=== PATIENT | male | born 1960 | race Caucasian/White ===

== ENCOUNTER 2019-11-06 21:55 | Inpatient (IN) | payer OTHER, SELFPAY ==
--- NOTE | ~2019-11-06 | XR_ITS ---
XR chest 1V portable 11/06/2019 22:43 Indication: History of lung cancer. Smoker. Procedure: AP portable chest Comparison: 02/24/2018 Findings: Heart size normal. No focal air space disease, pulmonary edema, pleural effusion or suspect ed pneumothorax. Minimal left basilar atelectasis. Impression: 1: No acute cardiopulmonary disease. Reviewed, dictated and finalized at location A. Impression: 1: No acute cardiopulmonary disease.
--- NOTE | 2019-11-06 22:02 | ECG_ITS ---
Measurements Intervals [place] Rate: 127 P: 33 WI: 151 QRS: -20 QRSD: 94 T: 53 QT: 293 QTc: 426 Interpretive Statements SINUS TACHYCARDIA INCOMPLETE RIGHT BUNDLE BRANCH BLOCK DELAYED PRECORDIAL R/S TRANSITION BASELINE WANDER- V1-V6 ABNORMAL ECG Electronically Signed On 11-07-2019 6:52:55 CDT by Catalino Olivier D.O.
[2019-11-06 22:07] VITALS: BP 122/77; PULSE 124; RESP 21; O2SAT 95
--- NOTE | 2019-11-06 22:22 | ECG_ITS ---
Measurements Intervals [place] Rate: 120 P: 27 VT: 139 QRS: 0 QRSD: 105 T: 60 QT: 311 QTc: 439 Interpretive Statements SINUS TACHYCARDIA ATRIAL PREMATURE COMPLEXES INCOMPLETE RIGHT BUNDLE BRANCH BLOCK BASELINE WANDER- V1-V2, V4-V6 ABNORMAL ECG Electronically Signed On 11-07-2019 6:59:02 CDT by Catalino Olivier D.O.
[2019-11-06] MEDS: SODIUM CHLORIDE 0.9% IV 1,000 ML 999 ML IV CONT ×2 (22:37→23:17)
[2019-11-06 22:39] LABS: Hematocrit 43.5 % (42.0-52.0); Hemoglobin 14.9 g/dL (14.0-18.0); Mean Corpuscular HGB Conc 34.3 g/dl (32-36); Mean Corpuscular Hemoglobin 30.7 pg (26-34); Mean Corpuscular Volume 89.7 fl (80-100); Mean Platelet Volume 10.4 fl (7.4-10.4); Platelet Count Result 260 k/mm3 (150-375); Red Blood Count 4.85 M/mm3 (4.6-6.20); Red Cell Distribution Width 13.7 % (11.5-14.5); White Blood Count 15.4 K/mm3 (4.5-10.0)
[2019-11-06 22:52] LABS: Band Neutrophils Percent 13 % (0-6); Blood Urea Nitrogen 14 mg/dL (9-20); Calcium 9.3 mg/dL (8.4-10.2); Carbon Dioxide 19 mmol/L (22-30); Chloride 106 mmol/L (98-107); Creatine Kinase 947 U/L (55-170); Estimated CRCL calculation 72 ml/min; Estimated Glomerular Filt Rate 57; Glucose 96 mg/dL (75-110); Lymphocytes Absolute Manual 1.23 K/mm3 (1.1-4.5); Monocytes Percent Manual 2 % (3-9); Neutrophils Absolute Manual 13.86 K/mm3 (1.3-6.7); Neutrophils Percent Manual 77 % (46-73); Nucleated Red Blood Cells 1 %; Platelet Estimate Adequate (Adequate); Potassium 3.9 mmol/L (3.4-5.0); Sodium 136 mmol/L (137-145); Total Cells Counted 100
[2019-11-06 23:02] LABS: Troponin I < 0.012 ng/mL (0.000-0.034)
[2019-11-06 23:03] VITALS: BP 95/78; PULSE 112; RESP 21
[2019-11-06 23:18] VITALS: BP 91/75; PULSE 107; RESP 25; TEMP 39.3; O2SAT 95
[2019-11-07] VITALS (12 sets, daily range): BP systolic 100–131; BP diastolic 58–77; PULSE 58–83; RESP 16–20; TEMP 36.4–37.4; O2SAT 93–98; BMI 31.6
[2019-11-07 01:47] LABS: Add Urine Microscopic? NO; Appearance Urine Clear (Clear); Bilirubin Urine Negative (Negative); Blood Urine Negative (Negative); Color Urine Yellow (Yellow); Glucose Urine UA Negative (Negative); Ketones Urine Negative (Negative); Leukocyte Esterase Ur Negative LEU/UL (Negative); Nitrate Urine Negative (Negative); Protein Urine Negative (Negative); Specific Grav Ur 1.012 (1.001-1.035); Urobilinogen Urine Negative mg/dL (<2.0)
[2019-11-07 02:00] LABS: Creatine Kinase 1001 U/L (55-170)
[2019-11-07 02:01] LABS: Lactic Acid Reflex 2.2 mmol/L (0.7-2.1)
[2019-11-07 02:12] LABS: Troponin I 0.025 ng/mL (0.000-0.034)
--- NOTE | 2019-11-07 02:14 | ECG_ITS ---
Measurements Intervals [place] Rate: 83 P: 26 OR: 140 QRS: 4 QRSD: 114 T: 30 QT: 374 QTc: 440 Interpretive Statements SINUS RHYTHM INCOMPLETE RIGHT BUNDLE BRANCH BLOCK BASELINE ARTIFACT- III BORDERLINE ECG Electronically Signed On 11-07-2019 15:14:32 CDT by Catalino Olivier D.O.
--- NOTE | 2019-11-07 02:42 | ED.GENADULT ---
HPI - General Adult General Chief complaint: Unspecified Stated complaint: not feeling well Time Seen by Provider: 11/06/19 22:17 History of Present Illness HPI narrative: Patient is a 59-year-old male who presents the ER with fever and shakiness. 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 He works for about [address] On his way home he began feeling very shaky. When he got home he had a borderline temperature and then developed a fever of 104.3 ?F. He continued to be very shaky and checked his blood sugar which is in the 140s. Due to symptoms he have to come the ER for further evaluation. He reports chronic dyspnea related to a partial pneumonectomy related to cancer but his shortness of breath is not increased recently. He has no runny nose/sore throat/productive cough. He has no chest pain or chest pressure. He does not feel like his heart is racing. No dizziness. No known sick contacts. There is only one COVID positive person in his work and that was over 4 weeks ago. Related Data Home Medications Medication Instructions Recorded Confirmed atorvastatin 11/06/19 omeprazole 11/06/19 Allergies Allergy/AdvReac Type Severity Reaction Status Date / Time shrimp Allergy Swelling Verified 11/06/19 22:11 Review of Systems Review of Systems: All systems reviewed & are unremarkable except as noted in HPI and below Constitutional: Constitutional: Denies chills, Reports fatigue and Reports fever(s) ENT: Denies nasal congestion and Denies sore throat Cardiovascular: Cardiovascular: Denies chest pain, Denies rapid heart rate and Denies radiating jaw, neck or arm pain Respiratory: Respiratory: Denies cough, Denies dyspnea and Denies wheezing Gastrointestinal: Gastrointestinal: Denies abdominal pain, Denies nausea and Denies vomiting Musculoskeletal: Musculoskeletal: Denies back pain and Denies muscle cramps PMFSH Past Medical History Medical History (Updated 11/07/19 @ 03:06 by Conner Hyatt MD) Hyperlipidemia Lung cancer Surgical History Surgical History (Updated 11/07/19 @ 02:51 by Conner Hyatt MD) History of lobectomy of lung Family History Family History (Updated 02/17/18 @ 09:24 by DOCTOR UNKNOWN) Sibling Acute myocardial infarction, Onset Age: 60 Family history of respiratory disorder Mother Family history of emphysema Social History Social History Smoking status: Heavy tobacco smoker Exam Narrative: Exam Narrative: GENERAL: Ill-appearing, diaphoretic, well-nourished, and in mild distress. HEAD: Normocephalic, atraumatic. ENT: Mucous membranes moist. CHEST: Clear to auscultation. No respiratory distress. HEART: Tachycardic and regular. Normal peripheral pulses. ABDOMEN: Soft, nontender, nondistended. EXTREMITIES: Normal range of motion. No edema. SKIN: Warm, diaphoretic, no rash. NEURO: Alert and oriented x3. Course Course Emergency Course: Patient informed of results. No longer febrile and no longer tachycardic. Still with intermittent hypotension despite 2 L IV fluid and no improvement in CK level. Patient's had no chest pain but troponin did have a significant upward trend. Will admit to the hospitalist service, continue hydrate, and start antibiotics given sepsis criteria being met Vital Signs Vital signs: Vital Signs Pulse Rate 124 H 11/06/19 22:07 Respiratory Rate 21 H 11/06/19 22:07 Blood Pressure 122/77 11/06/19 22:07 Pulse Oximetry 95 11/06/19 22:07 Temperature 99.2 F 11/07/19 02:28 Pulse Rate 79 11/07/19 02:28 Respiratory Rate 17 11/07/19 02:28 Blood Pressure 107/77 11/07/19 02:28 Pulse Oximetry 93 11/07/19 02:28 Medical Decision Making Vital Signs Vital Signs: Vital Signs Pulse Rate 124 H 11/06/19 22:07 Respiratory Rate 21 H 11/06/19 22:07 Blood Pressure 122/77 11/06/19 22:07 Pulse Oximetry 95 11/06/19 22:07
--- NOTE | 2019-11-07 03:20 | PM.IMHP ---
H&P: HPI History of Present Illness Chief complaint: sepsis, rhabdomyolysis Narrative: This is a 59 year old male with known history of right lung cancer who presented to the [facility] with a complaint of fever and chills that started this evening. 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 He described performing heavy physical work at home. On his way home he began to feel very shaky. The patient noted that he had a fever when he got home. Associated symptoms included nausea and headache. The patient denies any neck stiffness, sore throat, cough, chest pain, shortness of breath, abdominal pain, nausea, vomiting, diarrhea, rectal bleeding, LE swelling, rashes, wounds, or focal neurological symptoms. On arrival to the ER the patient was found to be severely septic and in sinus tachycardia. He was administered 2 liters of normal saline. He denies any sick contacts. The patient has no previous history of bacteremia or significant bacterial infections. He continues to smoke cigarettes. He has no known contacts with COVID-19 patients. Review of Systems Review of Systems: All systems reviewed & are unremarkable except as noted in HPI and below PMFSH Past Medical History Medical History (Updated 11/07/19 @ 04:00 by Russell Colbert MD) GERD (gastroesophageal reflux disease) Hyperlipidemia Lung cancer Surgical History Surgical History (Updated 11/07/19 @ 03:50 by Russell Colbert MD) History of back surgery History of lobectomy of lung Hx of hernia repair Family History Family History Sibling Acute myocardial infarction, Onset Age: 60 Family history of respiratory disorder Mother Family history of emphysema Social History Social History Smoking packs per day: 0.5 Smoking cigarettes per day: 10.0 Years smoked: 30 Smoking pack-years: 15.00 Smoking status: Current every day smoker Tobacco type: cigarettes Second hand tobacco smoke exposure: Yes Alcohol intake: never Substance use: never Substance use type: does not use Spiritual care concerns: No Meds Home Medications and Allergies Home Medications Medication Instructions Recorded Confirmed Type atorvastatin 11/06/19 History omeprazole 11/06/19 History Allergies Allergy/AdvReac Type Severity Reaction Status Date / Time shrimp Allergy Swelling Verified 11/06/19 22:11 Vital Signs Vital Signs - 24 hr 11/06/19 22:07 11/06/19 23:03 11/06/19 23:18 Temperature 39.3 C H Pulse Rate 124 H 112 H 107 H Respiratory Rate 21 H 21 H 25 H Blood Pressure 122/77 95/78 L 91/75 L Pulse Oximetry 95 95 11/07/19 00:51 11/07/19 02:28 Temperature 37.3 C 37.3 C Pulse Rate 83 79 Respiratory Rate 20 17 Blood Pressure 106/61 107/77 Pulse Oximetry 94 93 Exam Const: General: cooperative, alert, awake, diaphoretic and ill appearing acutely Nutritional Appearance: well nourished Orientation/consciousness: patient oriented x3 HENMT: Head: normal to inspection General nose exam: Normal external nose present Face and sinus: normal facial exam Mouth: Yes Normal oral and palatal mucosa present and Yes oropharynx normal Eyes: Pupils: Equal, round and reactive pupils present EOM: EOMs intact bilaterally Neck: Neck: supple and no JVD Thyroid: thyroid normal Lymphatic: lymphadenopathy not noted Resp: Effort & Inspection: normal respiratory effort Auscultation: clear to auscultation bilaterally Cardio: Rate: regular rate Rhythm: regular rhythm Heart sounds: no murmurs GI: Inspection: normal to inspection Auscultation: normal bowel sounds Skin: General skin exam: normal color and no rashes or lesions noted Neuro: General: patient oriented x3 Cranial nerves: Yes CN's II-XII intact bilaterally and Yes Equal, round and reactive pupils present Speech: normal speech Motor ex
--- NOTE | 2019-11-07 03:44 | ADMGEN ---
This patient, Edmar Kennedy, was admitted to IMU Room 201-01. Patient/family oriented to hospital policies and general routines including ID bracelet, bed and alarms, visiting hours, pain management, procedures, bathroom and other care routines, personal items, smoking policy, room service/diet, and visiting hours. Valuables list has been completed. Information on how to activate the Rapid Response Team has been discussed. Patient/Family are encouraged to report perceived risks to care and to ask questions if they do not understand what they are told or what they should do.
[2019-11-07] MEDS: SODIUM CHLORIDE 0.9% IV 1,000 ML 125 ML IV CONT ×3 (04:07→20:59)
[2019-11-07 04:42] LABS: Reflex Lactic Acid Yes or No Add Lactic
[2019-11-07 09:02] LABS: Hematocrit 39.5 % (42.0-52.0); Hemoglobin 13.1 g/dL (14.0-18.0); Mean Corpuscular HGB Conc 33.2 g/dl (32-36); Mean Corpuscular Hemoglobin 30.8 pg (26-34); Mean Corpuscular Volume 92.9 fl (80-100); Mean Platelet Volume 9.9 fl (7.4-10.4); Platelet Count Result 197 k/mm3 (150-375); Red Blood Count 4.25 M/mm3 (4.6-6.20); White Blood Count 16.6 K/mm3 (4.5-10.0)
[2019-11-07 09:15] LABS: Creatine Kinase 1210 U/L (55-170)
[2019-11-07 09:16] LABS: Alanine Aminotransferase 30 U/L (4-50); Albumin Level 3.8 g/dL (3.5-5.1); Alkaline Phosphatase 72 U/L (38-126); Aspartate Amino Transferase 43 U/L (17-59); Bilirubin,Total 0.6 mg/dL (0.2-1.3); Blood Urea Nitrogen 14 mg/dL (9-20); CRP 6.1 mg/dL (<1.0); Calcium 8.4 mg/dL (8.4-10.2); Carbon Dioxide 22 mmol/L (22-30); Chloride 108 mmol/L (98-107); Estimated CRCL calculation 83 ml/min; Estimated Glomerular Filt Rate > 60; Glucose 105 mg/dL (75-110); Lactate Dehydrogenase 519 U/L (313-618); Potassium 4.2 mmol/L (3.4-5.0); Sodium 138 mmol/L (137-145)
[2019-11-07] MEDS: ATORVASTATIN 10 MG TABLET PO (09:26)
[2019-11-07] MEDS: PANTOPRAZOLE SOD SESQUIHYDRATE 20 MG TAB PO (09:27)
--- NOTE | 2019-11-07 12:20 | PM.IMPN ---
Progress Note: A&P Assessment and Plan (1) SIRS (systemic inflammatory response syndrome): Code(s): R65.10 - Systemic inflammatory response syndrome (SIRS) of non-infectious origin without acute organ dysfunction Status: Acute Assessment and Plan: -----patient had temperature of 102.8 with white blood cell count of 15.4 on admission without any signs of infection at this time. This is likely in response to his heat exhaustion. His UA and chest x-ray is normal. White blood cell count is trending down. No audible murmur. He has not had any more fevers or symptoms/signs of infection. Will await preliminary blood cultures. Likely d/c tomorrow. (2) Rhabdomyolysis: Qualifiers: Rhabdomyolysis type: non-traumatic Qualified Code(s): M62.82 - Rhabdomyolysis Code(s): M62.82 - Rhabdomyolysis Status: Acute Assessment and Plan: -----CK trending up, likely will plateau soon and will trend down. Hopefully he can go home tomorrow if this is under 1000. Continue IV fluids at this time. Creatinine within normal limits today. (3) Metabolic acidosis: Code(s): E87.2 - Acidosis Status: Acute Assessment and Plan: ------resolved. Secondary to dehydration. Continue IV hydration. (4) Leukocytosis: Qualifiers: Leukocytosis type: unspecified Qualified Code(s): D72.829 - Elevated white blood cell count, unspecified Code(s): D72.829 - Elevated white blood cell count, unspecified Status: Acute Assessment and Plan: -----as detailed above. Monitor CBCd. (5) Hyperlipidemia: Qualifiers: Hyperlipidemia type: unspecified Qualified Code(s): E78.5 - Hyperlipidemia, unspecified Code(s): E78.5 - Hyperlipidemia, unspecified Status: Chronic Assessment and Plan: ------Continue home Lipitor PO. (6) GERD (gastroesophageal reflux disease): Qualifiers: Esophagitis presence: esophagitis presence not specified Qualified Code(s): K21.9 - Gastro-esophageal reflux disease without esophagitis Code(s): K21.9 - Gastro-esophageal reflux disease without esophagitis Status: Chronic Assessment and Plan: -----Continue PPI therapy. (7) Tobacco dependence: Code(s): F17.200 - Nicotine dependence, unspecified, uncomplicated Status: Chronic Assessment and Plan: -----I have counseled the patient regarding tobacco cessation for >10 minutes. He does not desire a nicotine patch at this time. He has a history of lung cancer but is in remission since this June. Additional Plan Time Spent With Patient Time with patient: 25 - 35 minutes Subjective Date/time seen: 11/07/19 12:20 Interval history: Pt is a 59-year-old male here for rhabdomyolysis. Patient was seen today and states he is feeling much better and would like to go home. He is not having any muscle pain or signs of infection. He specifically denies chest pain, dysuria, abdominal pain, diarrhea, shortness of breath, cough, rashes or wounds. He denies any rigors or other signs of infection. Review of Systems Review of Systems: All systems reviewed & are unremarkable except as noted in HPI and below Exam Narrative: Exam Narrative: General: Well developed well nourished patient resting comfortably in bed in [facility] HEENT: normocephalic Neck: supple Neuro: Alert and oriented x4 CV:RRR Resp:CTA skin: Clean and dry without wounds or rashes Abd: Soft, non distended. No pain to palpation. Positive bowel sounds Extremities: No swelling, erythema, or pain to palpation. Objective Data Vital Signs Vital Signs: Vital Signs - 24 hr 11/06/19 22:07 11/06/19 23:03 11/06/19 23:18 Temperature 102.8 F H Pulse Rate 124 H 112 H 107 H Respiratory Rate 21 H 21 H 25 H Blood Pressure 122/77 95/78 L 91/75 L Pulse Oximetry 95 95 11/07/19 00:51 11/07/19 02:28 11/07/19 03:48 Temperature 99.1 F
--- NOTE | 2019-11-07 14:54 | PC.NURSE ---
This patient, Edmar Kennedy, was transferred to [facility] on 11/07/19 at 1445. Personal belongings sent with patient. Report given to Steve. Appropriate documentation sent with patient.
--- NOTE | 2019-11-07 15:01 | PC.NURSE ---
This patient, Edmar Kennedy, was received from IMU on 11/07/19 at 1501. Personal belongings list checked and signed. Patient/family oriented to unit policies and routines
[2019-11-08 03:28] VITALS: BP 109/79; PULSE 53; RESP 16; TEMP 36.3; O2SAT 96
[2019-11-08] MEDS: SODIUM CHLORIDE 0.9% IV 1,000 ML 125 ML IV CONT (04:39)
[2019-11-08 05:42] VITALS: BP 114/78; PULSE 54; RESP 16; TEMP 36.4; O2SAT 98
[2019-11-08 06:06] LABS: Basophils Percent Auto 0.4 % (0.2-1.2); Eosinophils Absolute Auto 0.1 K/mm3 (0-0.3); Hematocrit 35.8 % (42.0-52.0); Hemoglobin 11.8 g/dL (14.0-18.0); Immature Granulocyte Absolute 0.02 K/mm3 (0.00-0.031); Immature Granulocyte Percent A 0.4 % (0-0.5); Lymphocytes Absolute Auto 1.12 K/mm3 (0.9-3.2); Lymphocytes Percent Auto 20.4 % (18.3-44.2); Mean Corpuscular Hemoglobin 30.4 pg (26-34); Mean Corpuscular Volume 92.3 fl (80-100); Mean Platelet Volume 9.4 fl (7.4-10.4); Monocytes Absolute Auto 0.6 K/mm3 (0.1-0.6); Monocytes Percent Auto 10.8 % (2.6-8.5); Neutrophils Absolute Auto 3.6 K/mm3 (1.3-6.7); Platelet Count Result 148 k/mm3 (150-375); Red Blood Count 3.88 M/mm3 (4.6-6.20); Red Cell Distribution Width 13.9 % (11.5-14.5); White Blood Count 5.5 K/mm3 (4.5-10.0)
[2019-11-08 06:19] LABS: Alanine Aminotransferase 37 U/L (4-50); Albumin Level 3.2 g/dL (3.5-5.1); Alkaline Phosphatase 63 U/L (38-126); Aspartate Amino Transferase 49 U/L (17-59); Bilirubin,Total 0.3 mg/dL (0.2-1.3); Blood Urea Nitrogen 13 mg/dL (9-20); Calcium 8.3 mg/dL (8.4-10.2); Carbon Dioxide 24 mmol/L (22-30); Chloride 111 mmol/L (98-107); Creatine Kinase 806 U/L (55-170); Estimated CRCL calculation 94 ml/min; Estimated Glomerular Filt Rate > 60; Glucose 104 mg/dL (75-110); Potassium 4.3 mmol/L (3.4-5.0); Sodium 138 mmol/L (137-145)
[2019-11-08] MEDS: PANTOPRAZOLE SOD SESQUIHYDRATE 20 MG TAB PO (08:19)
--- NOTE | 2019-11-08 09:25 | PM.DS ---
DS: Admitting Diagnosis Admitting Diagnosis Admitting Diagnosis: Sepsis, unspecified organism DS: Discharge Diagnosis Discharge Diagnosis (1) SIRS (systemic inflammatory response syndrome): Code(s): R65.10 - Systemic inflammatory response syndrome (SIRS) of non-infectious origin without acute organ dysfunction Status: Acute Assessment and Plan: -----patient had temperature of 102.8 with white blood cell count of 15.4 on admission without any signs of infection at this time. This is likely in response to his heat exhaustion. His UA and chest x-ray is normal. White blood cell count is normal. ABX stopped 11/06. No audible murmur. He has not had any more fevers or symptoms/signs of infection. Blood cultures negative at discharge (spoke with murali) and will be monitored until finalized. (2) Rhabdomyolysis: Qualifiers: Rhabdomyolysis type: non-traumatic Qualified Code(s): M62.82 - Rhabdomyolysis Code(s): M62.82 - Rhabdomyolysis Status: Acute Assessment and Plan: -----CK improved, okay to discharge and he understands he needs to drink plenty of fluids. Creatinine within normal limits today. He is to hold his statin medication until tuesday. I do not think this is the cause of his rhabdo, but will check a ck in one week to ensure it is not causing it. I spoke with Che at Dr. Francis' office about this follow up. (3) Metabolic acidosis: Code(s): E87.2 - Acidosis Status: Acute Assessment and Plan: ------resolved. Secondary to dehydration. (4) Leukocytosis: Qualifiers: Leukocytosis type: unspecified Qualified Code(s): D72.829 - Elevated white blood cell count, unspecified Code(s): D72.829 - Elevated white blood cell count, unspecified Status: Acute Assessment and Plan: -----resolved. as detailed above. Monitor CBCd. (5) Hyperlipidemia: Qualifiers: Hyperlipidemia type: unspecified Qualified Code(s): E78.5 - Hyperlipidemia, unspecified Code(s): E78.5 - Hyperlipidemia, unspecified Status: Chronic Assessment and Plan: ------holding until tuesday as stated above. (6) GERD (gastroesophageal reflux disease): Qualifiers: Esophagitis presence: esophagitis presence not specified Qualified Code(s): K21.9 - Gastro-esophageal reflux disease without esophagitis Code(s): K21.9 - Gastro-esophageal reflux disease without esophagitis Status: Chronic Assessment and Plan: -----Continue PPI therapy. (7) Tobacco dependence: Code(s): F17.200 - Nicotine dependence, unspecified, uncomplicated Status: Chronic Assessment and Plan: -----I have counseled the patient regarding tobacco cessation for >10 minutes. He does not desire a nicotine patch at this time. He has a history of lung cancer but is in remission since this June. DS: Summary Hospital Course Reason for hospitalization: Fever, abnormal vitals, rhabdomyolysis Hospital Course: Patient is a 59-year-old male who presented emergency room for weakness, and shakiness. Patient states he had been working in the heat for 13 hours and started to feel bad. He started having muscle cramps and overall weakness. No signs or symptoms of infection such as sore throat, chest pain, shortness of breath, dysuria, or sick contacts. Vitals in the ER were temperature 102.8?, blood pressure 91/75, pulse 107, respiratory rate 25, O2 95. Chest x-ray was normal. UA normal. Patient has some tachycardia which is likely response to his heat exhaustion. There was some abnormalities in the EKG looks like incomplete right bundle branch block. Some ST abnormalities but likely due to delayed precordial transition. Troponins were negative x3. Patient had no chest pain. White blood cell count elevated 15,000. CK elevated Because of his significant symptoms he was admitted to the hospital to evaluate for
[2019-11-08 10:00] VITALS: BP 138/88; PULSE 88; RESP 18; TEMP 36.2; O2SAT 97
--- NOTE | 2019-11-14 11:06 | PC.NURSE ---
Blood cx is negative.
== END 2019-11-08 11:07 | disposition home or self-care (01) | DRG 923 ==
LOC: ANHED 11-07 02:46 → ANHIMU 11-07 03:06 → ANH2MED 11-07 15:46 → ANHIMU 11-09 15:14
PROVIDERS: Admitting Provider Family Medicine; Emergency Provider Emergency Medicine; PCP Family Medicine; Visit Provider Physician Assistant
DX: T67.01XA Heatstroke and sunstroke, initial encounter (principal); R65.10 Systemic inflammatory response syndrome (SIRS) of non-infectious origin without acute organ dysfunction; M62.82 Rhabdomyolysis; E87.2 Acidosis; D72.829 Elevated white blood cell count, unspecified; K21.9 Gastro-esophageal reflux disease without esophagitis; E78.5 Hyperlipidemia, unspecified; E86.0 Dehydration; F17.210 Nicotine dependence, cigarettes, uncomplicated; X30.XXXA Exposure to excessive natural heat, initial encounter; Y92.63 Factory as the place of occurrence of the external cause; Y99.0 Civilian activity done for income or pay
CPT/HCPCS: 36415; 71045; 80048; 80053; 80076; 81003; 82550; 82728; 83605; 83615; 84484; 85025; 85027; 86140; 87040; 93005; 96361; 96365; 96374; 99285; A9270; J0131; J0696; J3370; J7030

== ENCOUNTER 2020-02-19 18:21 | Emergency (ER) | payer OTHER, SELFPAY ==
--- NOTE | ~2020-02-19 | XR_ITS ---
EXAMINATION: XR knee RT min 4V EXAM DATE: 02/19/2020 19:27 INDICATION: rt knee pain after getting up from chair 4 day ago. TECHNIQUE: Right knee frontal, crosstable lateral, orthogonal oblique projections for interpretation . Comparison is made to prior examination from 01/26/2016. FINDINGS: There is a right femoral distal diaphyseal enchondroma or less likely bone infarct. 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 There is soft tissue swelling anterior to this. Patellar tendon is intact. No joint effusion. There is mild primary osteoa rthritis. There are no acute fractures identified. There is no significant interval change. IMPRESSION: 1. Tibial tuberosity unfused ossification along patellar tendon, consistent with old Vilma-Schlatte r's disease. Some overlying soft tissue swelling. 2. Distal femoral enchondroma or infarct. 3. Mild osteoarthritis. Reviewed, dictated and finalized at location A. IMPRESSION: 1. Tibial tuberosity unfused ossification along patellar tendon, consistent wi th old Vilma-Schlatter's disease. Some overlying soft tissue swelling. 2. Distal femoral enchondroma or infarct. 3. Mild osteoarthritis.
[2020-02-19 18:36] VITALS: BP 143/97; PULSE 79; RESP 16; TEMP 37; O2SAT 98
--- NOTE | 2020-02-19 19:14 | ED.GENADULT ---
HPI - General Adult General Chief complaint: Extremity Injury, Lower Stated complaint: right knee pain Time Seen by Provider: 02/19/20 19:04 Source: patient and RN notes reviewed Mode of arrival: ambulatory Limitations: no limitations History of Present Illness HPI narrative: 59-year-old male presents with complaints of right lateral knee pain for the past 4 days. Edmar says he got up from sitting position and twisted RT knee and pain has been increasing daily, worse today after increase walking at work. Advil 400-600mg last today at 11:00am with little to no relief. No radiation of pain. No numbness or tingling, or bleeding. No swelling. No loss of mobility. Exacerbating factor consist of bearing weight. Remains active. The patient reports he have not been diagnosed with COVID-19. The patient reports he is not waiting for the results of a COVID-19 lab test. The patient reports he do not have fever, chills, weakness, or fatigue. The patient reports he do not have a new or worsening cough or shortness of breath. Denies chest pain. The patient reports he do not have any rhinorrhea, congestion, loss of taste, sore throat, nausea, vomiting, abdominal pain, and diarrhea. Tolerating po intake well. Denies recent traveling. Denies concerns for COVID-19 or exposures been home with limited outdoor exposure except for essential household needs, work, and return home. At this time, patient is not suspected of having COVID-19. Some parts of this dictation were generated by voice recognition software and may contain typographical and/or grammatical inaccuracies. Related Data Home Medications Medication Instructions Recorded Confirmed omeprazole 20 mg PO DAILY 11/06/19 02/19/20 Allergies Allergy/AdvReac Type Severity Reaction Status Date / Time shrimp Allergy Intermediate Swelling Verified 02/19/20 18:45 Review of Systems Review of Systems: Narrative: CONSTITUTIONAL: Denies fever, chills, sweats. EYES: Denies visual changes, redness, discharge. ENT: Denies rhinorrhea, congestion, sore throat, otalgia. CARDIOVASCULAR: Denies chest pain, palpitations, edema. RESPIRATORY: Denies dyspnea, wheezing, cough. GASTROINTESTINAL: Denies abdominal pain, nausea, vomiting, diarrhea. SKIN: Denies rash or itching. MUSCULOSKELETAL: Denies acute back pain or myalgia. Complains of right lateral knee pain. NEUROLOGIC: Denies numbness, or focal weakness. PSYCHIATRIC: Denies anxiety or depression. All other systems reviewed & are unremarkable except as noted in HPI and below. [facility] Past Medical History Medical History (Updated 02/20/20 @ 00:00 by Yoshi Cueto) GERD (gastroesophageal reflux disease) Hyperlipidemia Lung cancer Rhabdomyolysis Surgical History Surgical History History of back surgery History of lobectomy of lung Hx of hernia repair Family History Family History (Updated 02/19/20 @ 19:23 by SHARI Eisenberg) Sibling Acute myocardial infarction, Onset Age: 60 Family history of respiratory disorder Mother Family history of emphysema Father Lung cancer Social History Social History (Updated 02/19/20 @ 19:18 by SHARI Eisenberg) Smoking packs per day: 1 Smoking cigarettes per day: 20.0 Years smoked: 35 Smoking pack-years: 35.00 Smoking status: Current every day smoker Tobacco type: cigarettes Second hand tobacco smoke exposure: Yes Alcohol intake: never Substance use: never Substance use type: does not use Living arrangements: alone Occupation/Education: occupation Gender identity (if verbalized by the patient): Male Spiritual care concerns: No Comments At time of signature, agree with nurse past medical, surgical, social, and family history. There is no relevant family history pertinent to the presenting complaint. Exam Narrative: Exam Narrative: GENERAL: This is a we
== END 2020-02-19 20:03 | disposition home or self-care (01) ==
PROVIDERS: Emergency Provider Nurse Practitioner Family; PCP Family Medicine
DX: M25.561 Pain in right knee (principal); F17.210 Nicotine dependence, cigarettes, uncomplicated; K21.9 Gastro-esophageal reflux disease without esophagitis; E78.5 Hyperlipidemia, unspecified; Z85.118 Personal history of other malignant neoplasm of bronchus and lung; Z90.2 Acquired absence of lung [part of]; M62.82 Rhabdomyolysis
CPT/HCPCS: 73564; 99213; G0463

== ENCOUNTER → 2020-09-08 15:25 | Outpatient (CLI) | payer OTHER, SELFPAY ==
--- NOTE | ~2020-09-08 | XR_ITS ---
EXAMINATION: XR knee RT 3V DATE: 09/08/2020 15:58 INDICATION: Right knee joint effusion. TECHNIQUE: 3 views of right knee were obtained. COMPARISON: Right knee radiographs 02/19/2020 FINDINGS: Bone alignment is normal. No fracture. Again seen is a sclerotic lesion in distal femoral m etadiaphysis. There is moderate osteoarthritis of medial compartment and mild osteoarthritis of later al and patellofemoral compartments. There is a small knee joint effusion. IMPRESSION: 1. Moderate right knee osteoarthritis. 2. Small knee joint effusion. 3. Stable sclerotic lesion in distal femoral metadiaphysis, which may be an enchondroma or osteonecro sis. Reviewed, dictated and finalized at location B. IMPRESSION: 1. Moderate right knee osteoarthritis. 2. Small knee joint effusion. 3. Stable sclerotic lesion in distal femoral metadiaphysis, which may be an enc hondroma or osteonecrosis.
--- NOTE | ~2020-09-08 | US_ITS ---
EXAMINATION: US joint non vasc ltd RT DATE: 09/08/2020 15:41 INDICATION: Right lower limb mass. TECHNIQUE: Multiple grayscale and Doppler ultrasound images of the right lower limb were obtained. COMPARISON: None FINDINGS: There is no abnormal mass in the patient's area of concern in the posterior aspect of the r ight lower limb. IMPRESSION: 1. No abnormal mass in the patient's area of concern in the posterior aspect of the right lower limb. Reviewed, dictated and finalized at location B.
== END ==
PROVIDERS: Visit Provider Nurse Practitioner
DX: M17.11 Unilateral primary osteoarthritis, right knee (principal); M25.461 Effusion, right knee
CPT/HCPCS: 73562; 76882

== ENCOUNTER 2021-05-12 08:52 | Outpatient (CLI) | payer OTHER, SELFPAY ==
--- NOTE | 2021-05-12 11:00 | NEURO_ITS ---
Impression: # Complains of numbness of right index finger and thumb. # Right Carpal Tunnel Syndrome. # Mild evolving left Carpal Tunnel Syndrome. # No ulnar neuropathy. Nerve Conduction Studies Anti Sensory Summary Table Stim Site NR Peak (ms) P-T Amp (?V) Site1 Site2 Delta-P (ms) Dist (cm) Lul (m/s) Left Median Anti Sensory (2-3nd Digit) Wrist 3.9 24.6 Wrist 2-3nd Digit 3.9 14.0 36 Wrist 4.2 16.7 Wrist 2-3nd Digit 3.9 14.0 36 Right Median Anti Sensory (2-3nd Digit) Wrist 4.7 16.3 Wrist 2-3nd Digit 4.7 14.0 30 Wrist 4.6 6.5 Wrist 2-3nd Digit 4.7 14.0 30 Left Radial Anti Sensory (Base 1st Digit) Wrist 2.3 14.2 Wrist Base 1st Digit 2.3 0.0 Right Radial Anti Sensory (Base 1st Digit) Wrist 2.2 19.1 Wrist Base 1st Digit 2.2 0.0 Left Ulnar Anti Sensory (5th Digit) Wrist 2.9 18.9 Wrist 5th Digit 2.9 14.0 48 Right Ulnar Anti Sensory (5th Digit) Wrist 2.8 15.8 Wrist 5th Digit 2.8 14.0 50 Motor Summary Table Stim Site NR Onset (ms) O-P Amp (mV) Site1 Site2 Delta-0 (ms) Dist (cm) Lul (m/s) Left Median Motor (Abd Poll Brev) Wrist 3.8 5.5 Elbow Wrist 5.9 33.0 56 Elbow 9.7 4.2 Right Median Motor (Abd Poll Brev) Wrist 4.4 7.2 Elbow Wrist 6.1 32.0 52 Elbow 10.5 6.6 Left Ulnar Motor (Abd Dig Minimi) Wrist 2.8 5.2 A Elbow Wrist 5.5 32.0 58 A Elbow 8.3 3.6 Right Ulnar Motor (Abd Dig Minimi) Wrist 2.8 7.1 A Elbow Wrist 5.6 33.0 59 A Elbow 8.4 6.2 F Wave Studies NR F-Lat (ms) L-R F-Lat (ms) Left Median (Mrkrs) (Abd Poll Brev) 32.66 1.13 Right Median (Mrkrs) (Abd Poll Brev) 33.79 1.13 Left Ulnar (Mrkrs) (Abd Dig Min) 31.28 0.46 Right Ulnar (Mrkrs) (Abd Dig Min) 31.73 0.46 EMG Side Muscle Nerve Root Ins Act Fibs Amp Dur Recrt Comment Right 1stDorInt Ulnar C8-T1 Nml Nml Nml Nml Nml Right Ext Indicis Radial (Post Int) C7-8 Nml Nml Nml Nml Nml Right Ext Digitorum Radial (Post Int) C7-8 Nml Nml Nml Nml Nml Right BrachioRad Radial C5-6 Nml Nml Nml Nml Nml Right PronatorTeres Median C6-7 Nml Nml Nml Nml Nml Right Abd Poll Brev Median C8-T1 Nml Nml Nml Nml Reduced Left 1stDorInt Ulnar C8-T1 Nml Nml Nml Nml Nml Left Ext Indicis Radial (Post Int) C7-8 Nml Nml Nml Nml Nml Left Ext Digitorum Radial (Post Int) C7-8 Nml Nml Nml Nml Nml Left BrachioRad Radial C5-6 Nml Nml Nml Nml Nml Left PronatorTeres Median C6-7 Nml Nml Nml Nml Nml Left Abd Poll Brev Median C8-T1 Nml Nml Nml Nml Nml Right ABD Dig Min Ulnar C8-T1 Nml Nml Nml Nml Nml Left ABD Dig Min Ulnar C8-T1 Nml Nml Nml Nml Nml MTDD
== END 2021-05-12 08:53 | disposition home or self-care (01) ==
LOC: ANHNEURO 08:54
PROVIDERS: PCP Internal Medicine; Visit Provider Internal Medicine
DX: R20.2 Paresthesia of skin (principal); G56.01 Carpal tunnel syndrome, right upper limb
CPT/HCPCS: 95886; 95911

== ENCOUNTER → 2021-07-24 09:06 | Outpatient (CLI) | payer OTHER, SELFPAY ==
--- NOTE | ~2021-07-24 | MR_ITS ---
EXAMINATION: MR knee RT wo con DATE: 07/24/2021 09:52 INDICATION: Right knee pain TECHNIQUE: Magnetic resonance imaging (MRI) of the right knee was performed without intravenous contr ast. Sequences included coronal PD-weighted FSE, coronal PD-weighted FS FSE, sagittal T2-weighted FS E, sagittal PD-weighted FS FSE and axial PD weighted fat saturated FSE. COMPARISON: None. FINDINGS: Medial compartment: Complex tear of the posterior body and posterior horn of the medial meniscus. The posterior horn is d iminutive with loss of the majority the meniscal tissue. Deep chondral ulceration along the anterior to central weightbearing medial femoral condyle and significant portions of the medial tibial plateau in places likely for near full-thickness. Few tiny foci of subarticular edema-like marrow signal sugey nge along the anterior weightbearing medial femoral condyle. Lateral compartment: Tear of indeterminate morphology along the inner third of the body of the medial meniscus shallow cho ndral ulceration and deeper fissuring along the anterior to central weightbearing lateral femoral con dyle and lateral tibial plateau. There are few tiny central subchondral osteophytes along the central to posterior tibial plateau and anterior weightbearing medial femoral condyle. Patellofemoral compartment: Extensive partial thickness chondral ulceration with superimposed deep fissuring along the medial pat ellar facet and apical ridge. Less severe partial thickness cartilage loss with minimal chondral surf magdy regularity along the lateral patellar facet. Deep chondral ulceration with few small central subc hondral osteophytes along the medial trochlea and trochlear groove. Similarly there is less severe pa rtial thickness cartilage loss with scattered chondral surface irregularity along the lateral trochle a. Ligaments and tendons: Posterior cruciate ligament is normal. The anterior cruciate ligament demonstrates a normal angle rel ative to [place] line. It appears thickened with a few small intrasubstance ganglion cysts and inc reased intrasubstance signal surrounding intact appearing linear fibers with a celery stalk appeara nce. The medial collateral ligament and fibular collateral ligament complex are normal. Prominent ent hesophyte and large these pelvic ossicle at the anterior tibial tubercle insertion of the otherwise n ormal patellar tendon likely sequela of childhood [place]-Schlatter's disease. Small despite at the pa tellar insertion of the normal distal quadriceps tendon. Moderate tendinopathy without discrete tear at the direct head of the of the semimembranosus tendon. There is a pedunculated osseous excrescences with cortical and medullary community at the posterior medial margin of the medial tibial plateau ne ar the footplate of the semimembranosus tendon which could represent either chronic enthesopathy or s equela of chronic trauma although differential includes a pedunculated osteochondroma. The visualized medial and lateral hamstring tendons as well as the iliotibial band are otherwise normal. Fluid: Small right knee joint effusion. 7 mm round loose body in the lateral gutter of the suprapatellar clemente ch. Small Arora's cyst. Osseous/other: Likely mild reactive edema at the proximal tibia underlying the footplate of the anterior cruciate li gament. Bone marrow signal is otherwise normal with no fracture or pathologic marrow replacing proces s. IMPRESSION: 1. Complex medial meniscal tear with significant loss of meniscal tissue at the posterior horn. 2. Moderate medial compartment predominant tricompartmental osteoarthritis with regions of moderate a nd high-grade chondral malacia in all 3 compartments. 3. Mucoid degeneration without definitive tear of the anterior cruciate ligament. Correlate with phys ical exam to assess for degree of residual functional integrity. 4. Moderate te
== END ==
PROVIDERS: PCP Internal Medicine; Visit Provider Nurse Practitioner Family
DX: M25.561 Pain in right knee (principal); G89.29 Other chronic pain; M23.321 Other meniscus derangements, posterior horn of medial meniscus, right knee; M71.21 Synovial cyst of popliteal space [Baker], right knee; M25.461 Effusion, right knee; M23.41 Loose body in knee, right knee
CPT/HCPCS: 73721

== ENCOUNTER 2023-03-30 15:23 | Outpatient (CLI) | payer OTHER, SELFPAY ==
[2023-03-30 16:14] LABS: Hematocrit 40.7 % (42.0-52.0); Hemoglobin 13.7 g/dL (14.0-18.0); Mean Corpuscular HGB Conc 33.7 g/dl (32-36); Mean Corpuscular Volume 89.1 fl (80-100); Platelet Count Result 317 k/mm3 (150-375); Red Blood Count 4.57 M/mm3 (4.6-6.20); Red Cell Distribution Width 13.7 % (11.5-14.5); White Blood Count 8.8 K/mm3 (4.5-10.0)
[2023-03-30 16:33] LABS: Alanine Aminotransferase 46 U/L (6-50); Albumin Level 4.4 g/dL (3.5-5.1); Alkaline Phosphatase 104 U/L (38-126); Anion Gap 11 mmol/L (8-16); Aspartate Amino Transferase 47 U/L (17-59); Bilirubin,Total 0.9 mg/dL (0.2-1.3); Blood Urea Nitrogen 15 mg/dL (9-20); Carbon Dioxide 23 mmol/L (22-30); Chloride 100 mmol/L (98-107); Estimated Glomerular Filt Rate > 60; Glucose 94 mg/dL (65-110); Potassium 4.5 mmol/L (3.4-5.0); Sodium 134 mmol/L (137-145)
[2023-03-30 20:26] LABS: Hemoglobin A1C 5.2 % (<5.7)
[2023-04-04 15:19] LABS: Testosterone Free 29.7; Testosterone Total 341
== END 2023-03-30 15:24 | disposition home or self-care (01) ==
LOC: ANHLAB 15:24
PROVIDERS: PCP Family Medicine; Visit Provider Family Medicine
DX: E29.1 Testicular hypofunction (principal); G47.33 Obstructive sleep apnea (adult) (pediatric); J44.9 Chronic obstructive pulmonary disease, unspecified; K21.9 Gastro-esophageal reflux disease without esophagitis; R53.83 Other fatigue; R73.03 Prediabetes; Z00.00 Encounter for general adult medical examination without abnormal findings
CPT/HCPCS: 36415; 80053; 83036; 84402; 84403; 85027

== ENCOUNTER → 2023-04-06 15:48 | Outpatient (CLI) | payer OTHER, SELFPAY ==
--- NOTE | ~2023-04-06 | XR_ITS ---
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 RESULT: Lines, tubes, and devices: Suture line in the right upper medial hemithorax from prior lobectomy. Lungs and pleura: Small focus of subsegmental airspace disease in the left medial upper lung. Cardiomediastinal silhouette: Interval widening of mediastinum, likely dilation of the aortic root, and new enlargement/indistinctness of the aortic knob. Other: No acute osseous or upper abdominal finding. IMPRESSION: Mediastinal findings concerning for thoracic aortic aneurysm or dissection. Small focus of atelectasi s or consolidation in the medial left upper lung. Recommend CT angiogram of the chest with contrast f or further evaluation. Results reported telephonically to Dr. Fam Baez by Dr. Daugherty at 5:16 PM on 04/06/2023. Reviewed, dictated and finalized at location K. UITO SPRAYER IMPRESSION: Mediastinal findings concerning for thoracic aortic aneurysm or dissection. Sma ll focus of atelectasis or consolidation in the medial left upper lung. Recomme nd CT angiogram of the chest with contrast for further evaluation. Results reported telephonically to Dr. Fam Baez by Dr. Daugherty at 5:16 PM on 04/06/2023.
== END ==
PROVIDERS: PCP Family Medicine; Visit Provider Family Medicine
DX: J44.9 Chronic obstructive pulmonary disease, unspecified (principal); R91.8 Other nonspecific abnormal finding of lung field
CPT/HCPCS: 71046

== ENCOUNTER → 2023-04-14 10:34 | Outpatient (CLI) | payer OTHER, SELFPAY ==
--- NOTE | ~2023-04-14 | CT_ITS ---
EXAMINATION: CTA chest DATE: 04/14/2023 11:08 INDICATION: Aortic aneurysm without rupture, history of lung cancer TECHNIQUE: Computed tomographic angiography (CTA) of the chest was performed with 100 mL Omnipque-350 intravenous contrast. Maximum intensity projection 3D-reconstructions of the aorta and other arterie s were constructed by the technologist on a separate workstation. The dose-length product (DLP) was 7 25.54 mGy-cm. Automated exposure control and iterative reconstruction technique were employed. COMPARISON: 06/09/2018 FINDINGS: No aneurysm or dissection of the thoracic aorta identified. The great vessels are unremarka ble. There is an approximately 5.5 x 2.7 cm mass of the left upper lobe. Airspace opacities located p eripheral to the mass could reflect additional malignancy or postobstructive pneumonia. There are mat gisela prevascular, aorticopulmonary window, and left hilar lymph nodes resulting in an approximately 10 .2 x 10.1 x 8.8 cm mediastinal mass. The mass encases the left main pulmonary artery and resultant se kelsy stenosis. Direct invasion is not excluded. There are small pleural effusions. Small enhancing no dules are noted in the left pleural space. No pneumothorax is identified. The heart size is normal. T here are changes of right upper lobectomy. There is mild thoracic spondylosis. There is a 12 mm nodul e of the left thyroid lobe. IMPRESSION: 1. Left upper lobe mass, consistent with primary bronchogenic carcinoma. 2. Massive matted left hilar and mediastinal lymphadenopathy, consistent with metastatic disease. 3. No aneurysm or dissection of the thoracic aorta. Reviewed, dictated and finalized at location L. CIATE PROFESSOR OF [employer]IMINAL JUSTICE IMPRESSION: 1. Left upper lobe mass, consistent with primary bronchogenic carcinoma. 2. Massive matted left hilar and mediastinal lymphadenopathy, consistent with m etastatic disease. 3. No aneurysm or dissection of the thoracic aorta.
== END ==
PROVIDERS: PCP Family Medicine; Visit Provider Family Medicine
DX: I71.9 Aortic aneurysm of unspecified site, without rupture (principal); R59.0 Localized enlarged lymph nodes; R91.8 Other nonspecific abnormal finding of lung field
CPT/HCPCS: 71275; Q9967

== ENCOUNTER 2023-04-21 07:34 | Outpatient (CLI) | payer OTHER, SELFPAY ==
--- NOTE | ~2023-04-21 | PE_ITS ---
EXAMINATION: PET skull to mid thigh DATE: 04/21/2023 09:21 INDICATION: Malignant neoplasm of the left lung TECHNIQUE: Blood glucose level was 99 mg/dL. 10.171 mCi of 18-fluorodeoxyglucose (18-FDG) was adminis tered i.v. Low dose computed tomography (CT) images were acquired from the base of the brain to the p roximal thighs for attenuation correction and anatomic localization. Positron emission tomography (PE T) images were acquired in the same distribution beginning 59 minutes after injection. The dose-lengt h product (DLP) was 1188.35 mGy-cm. COMPARISON: 04/14/2023 FINDINGS: Head/neck: There is FDG uptake in a 1.7 cm nodule of the left thyroid. There is a polyp or mucous ret ention cyst of the right maxillary sinus.. FDG uptake in the extraocular muscles and oral cavity with out suspicious CT correlate is likely physiologic. Chest: There is a 5.1 x 2.8 cm mass of the left upper lobe with abnormal FDG uptake and SUV max of 19 .3. There is a rind of pleural thickening at the left lung apex with abnormal FDG uptake. There are m atted prevascular, aorticopulmonary window, and left hilar lymph nodes left abnormal FDG uptake and S UV max of 23.3. There are left axillary, left internal mammary, epicardial, and paraesophageal lymph nodes with abnormal FDG uptake, some of which are not pathologically enlarged. There are areas of nod ular pleural thickening on the left with abnormal FDG uptake. There is a small malignant left pleural effusion. There is no pneumothorax. There are changes of right upper lobectomy. There is patchy opac ification distal to the right upper lobe mass, likely postobstructive pneumonia. Abdomen/pelvis/proximal thighs: There are multiple (greater than 20) FDG avid masses throughout the l iver, the largest of which measures 5.3 cm in the left hepatic lobe. The spleen, pancreas, and gallbl adder are normal. There is low-level FDG uptake in the adrenal glands without discrete mass identifie d. Physiologic FDG activity is present in the bowel and urinary tract. There is abnormal FDG uptake a nd not pathologically enlarged retroperitoneal lymph nodes. Musculoskeletal: There are multiple punctate foci of abnormal skeletal FDG uptake. There is uptake in the left T2 transverse process,, the T3 spinous process, the right scapula, the T10 vertebral body, the left sacrum, the right ilium, and the left iliac wing. IMPRESSION: 1. Left upper lobe mass with abnormal FDG uptake, consistent with primary bronchogenic carcinoma. 2. Left hilar and mediastinal lymphadenopathy, widespread thoracic and abdominal lymphadenopathy, mul tiple liver masses, and multiple foci of abnormal skeletal FDG uptake, consistent with metastatic dis ease. Reviewed, dictated and finalized at location L. LE MECHANIC IMPRESSION: 1. Left upper lobe mass with abnormal FDG uptake, consistent with primary bronc hogenic carcinoma. 2. Left hilar and mediastinal lymphadenopathy, widespread thoracic and abdomina l lymphadenopathy, multiple liver masses, and multiple foci of abnormal skeleta l FDG uptake, consistent with metastatic disease.
[2023-04-21 07:51] LABS: Glucose Point of Care 99 mg/dl (65-105)
== END 2023-04-21 07:35 | disposition home or self-care (01) ==
PROVIDERS: PCP Family Medicine; Visit Provider Family Medicine
DX: C34.12 Malignant neoplasm of upper lobe, left bronchus or lung (principal); R59.0 Localized enlarged lymph nodes; R91.8 Other nonspecific abnormal finding of lung field
CPT/HCPCS: 78815; A9552

== ENCOUNTER 2023-05-24 15:34 | Inpatient (IN) | payer OTHER, SELFPAY ==
[2023-05-24] VITALS (18 sets, daily range): BP systolic 113–156; BP diastolic 79–103; PULSE 83–133; RESP 16–35; TEMP 36.6–36.9; O2SAT 93–100; BMI 30.2
--- NOTE | ~2023-05-24 | CT_ITS ---
EXAMINATION: CTA chest PE protocol DATE: 05/24/2023 17:15 INDICATION: Dyspnea. Lung cancer. TECHNIQUE: Computed tomography angiography (CTA) of the chest was performed with 100 mL Omnipaque-350 intravenous contrast timed to evaluate the pulmonary arteries. Coronal maximum intensity projection 3D-reconstructions were created by the technologist. Automated exposure control and iterative reconst ruction technique were employed. The dose-length product was 810.18 mGy-cm. COMPARISON: Chest CT 04/14/2023 FINDINGS: There is mild emphysema. There are centrilobular nodules and groundglass opacities in right lower lobe. There are changes of right upper lobectomy. There are centrilobular nodules and tree-in- bud opacities in left upper lobe. There is atelectasis involving left lower lobe. There is a large le ft pleural effusion. There is confluent left hilar and mediastinal lymphadenopathy measuring 11.2 x 1 1.2 cm with worsening from 11.5 x 8.3 cm with encasement and severe stenosis of left main pulmonary a rtery. No pulmonary embolus. There is worsened nodular pleural thickening on the left. The liver demo nstrates new surface nodularity. There is a small volume of ascites. Partially visualized are new mas ses in the adrenal glands. There is a 15 mm cyst in right kidney. There is gastrohepatic lymphadenopa thy. There is mild thoracic spondylosis. IMPRESSION: 1. No pulmonary embolus. 2. Multifocal pneumonia. 3. Worsened metastatic disease including left hilar and mediastinal lymphadenopathy, nodular left-elma ed pleural thickening, new adrenal masses, abdominal lymphadenopathy, and new liver nodularity. 4. Large left pleural effusion. Reviewed, dictated and finalized at location E. CAL FRONT DESK COORDINATOR IMPRESSION: 1. No pulmonary embolus. 2. Multifocal pneumonia. 3. Worsened metastatic disease including left hilar and mediastinal lymphadenop athy, nodular left-sided pleural thickening, new adrenal masses, abdominal lymp hadenopathy, and new liver nodularity. 4. Large left pleural effusion.
--- NOTE | ~2023-05-24 | US_ITS ---
EXAMINATION: US venous doppler [facility] DATE: 05/24/2023 23:21 INDICATION: Lower limb edema. TECHNIQUE: Grayscale ultrasound images without and with compression and Doppler ultrasound images of the bilateral lower extremity veins were obtained. COMPARISON: Ultrasound 06/19/2018 FINDINGS: The visualized portions of right common femoral vein, profunda (deep) femoral vein, femoral vein, pop liteal vein, and greater saphenous vein outflow are patent. The calf veins are not well visualized. The visualized portions of left common femoral vein, profunda femoral vein, femoral vein, popliteal v ein, and greater saphenous vein outflow are patent. The calf veins are not well visualized. IMPRESSION: 1. No deep venous thrombosis. Reviewed, dictated and finalized at location E. OLOGY MANAGER
--- NOTE | ~2023-05-24 | XR_ITS ---
EXAMINATION: XR chest 1V portable DATE: 05/24/2023 17:21 INDICATION: Dyspnea TECHNIQUE: frontal view of the chest was obtained. COMPARISON: Chest radiograph dated 04/06/[address] dated 04/14/2023 FINDINGS: Again seen is a large left hilar and suprahilar mass which is concerning for malignancy. New opacitie s in the left mid and lower lung zone consistent with moderate size pleural effusion and associated a telectasis and/mild pulmonary edema. Heart size is normal. IMPRESSION: 1. New moderate-sized left pleural effusion with associated atelectasis and/or 2. Airspace opacity right lower lung zone which could represent additional pneumonia and/or mild pulm onary edema. 3. Persistent left perihilar suprahilar mass most consistent with primary bronchogenic carcinoma. Reviewed, dictated and finalized at location A. LATHER IMPRESSION: 1. New moderate-sized left pleural effusion with associated atelectasis and/or 2. Airspace opacity right lower lung zone which could represent additional pneu monia and/or mild pulmonary edema. 3. Persistent left perihilar suprahilar mass most consistent with primary bronc hogenic carcinoma.
--- NOTE | ~2023-05-24 | XR_ITS ---
EXAMINATION: XR abdomen/kub 1V DATE: 05/24/2023 23:03 INDICATION: Abdominal distention. Constipation. TECHNIQUE: A supine view of the abdomen on 3 radiographs was obtained. COMPARISON: PET/CT 04/21/2023 FINDINGS: There are no dilated loops of bowel. There is a small volume of stool in the colon. IMPRESSION: 1. Normal bowel gas pattern. Reviewed, dictated and finalized at location E. ATION ONCOLOGY MANAGER
--- NOTE | ~2023-05-24 | XR_ITS ---
EXAMINATION: XR fl guide central line place DATE: 05/25/2023 16:21 INDICATION: Port placement. TECHNIQUE: A single intraoperative fluoroscopic view of the chest was obtained. I was not present. Fl uoroscopy exposure time was 17 seconds. COMPARISON: Chest single view 05/25/2023 FINDINGS: There is a right subclavian port with tip at superior cavoatrial junction. IMPRESSION: 1. Port tip at superior cavoatrial junction. Reviewed, dictated and finalized at location E. CLE REPAIR TECHNICIAN
--- NOTE | ~2023-05-24 | XR_ITS ---
EXAMINATION: [id number]_[id number]_CR DATE: 05/25/2023 12:37 INDICATION: Status post left thoracentesis TECHNIQUE: PA and lateral views of the chest were obtained. COMPARISON: Chest radiograph dated 04/06/[address] dated 05/24/2023 FINDINGS: Residual moderate-sized left pleural effusion. There is a large left hilar/suprahilar mass concerning for primary bronchogenic carcinoma. Nodular pleural based thickening at the periphery of the left mi d and upper lung zones concerning for metastatic disease. Mild opacities in right lower lung zone whi ch could represent atelectasis or pneumonia. No pneumothorax or right-sided pleural effusion. Heart s ize is normal. IMPRESSION: 1. Residual moderate-sized left pleural effusion postthoracentesis with no pneumothorax. 2. Large left hilar/suprahilar mass concerning for primary bronchogenic carcinoma with nodular pleura l thickening at the periphery of the right lung suspicious for facet disease. 3. Mild opacities in the right lower lung zone which could represent atelectasis. Reviewed, dictated and finalized at location A. ASONOGRAPHER IMPRESSION: 1. Residual moderate-sized left pleural effusion postthoracentesis with no pneu mothorax. 2. Large left hilar/suprahilar mass concerning for primary bronchogenic carcino ma with nodular pleural thickening at the periphery of the right lung suspiciou s for facet disease. 3. Mild opacities in the right lower lung zone which could represent atelectasi s.
--- NOTE | ~2023-05-24 | XR_ITS ---
EXAMINATION: XR chest port-a-cath/central DATE: 05/25/2023 16:19 INDICATION: Port catheter insertion TECHNIQUE: frontal view of the chest was obtained. COMPARISON: Chest radiograph dated 05/24/2023 FINDINGS: Interval placement right subclavian central venous port catheter with distal tip near the superior ca voatrial junction. Unchanged opacities in the left hemithorax consistent with a moderate-sized pleura l effusion and associated basilar atelectasis and/or pneumonia. Large left perihilar/suprahilar mass and peripheral nodular pleural thickening in the left hemithorax suspicious for primary cholangiocarc inoma and pleural-based metastatic disease. Persistent mild opacities at the right lung base which co uld represent atelectasis or less likely pneumonia. No pneumothorax or right-sided pleural effusion. Heart size is normal. IMPRESSION: 1. No pneumothorax or right-sided pleural effusion post placement of a right subclavian central venou s port catheter with distal tip at the superior cavoatrial junction. 2. Large left perihilar/suprahilar mass concerning for primary bronchogenic carcinoma with nodular pl eural thickening suggesting pleural metastatic disease. 3. Moderate-sized left pleural effusion with compressive atelectasis versus potentially pneumonia in the lower lung zone. 4. Minimal opacities at the right lower lung zone with similar differential of atelectasis versus pne umonia. Reviewed, dictated and finalized at location A. PATIONAL THERAPY CO DIRECTOR IMPRESSION: 1. No pneumothorax or right-sided pleural effusion post placement of a right saenz bclavian central venous port catheter with distal tip at the superior cavoatria l junction. 2. Large left perihilar/suprahilar mass concerning for primary bronchogenic car cinoma with nodular pleural thickening suggesting pleural metastatic disease. 3. Moderate-sized left pleural effusion with compressive atelectasis versus pot entially pneumonia in the lower lung zone. 4. Minimal opacities at the right lower lung zone with similar differential of atelectasis versus pneumonia.
--- NOTE | ~2023-05-24 | US_ITS ---
EXAMINATION: US thoracentesis DATE: 05/25/2023 12:47 INDICATION: Left pleural effusion TECHNIQUE: The procedure and its risks and benefits were discussed with the patient. Potential risks discussed included bleeding, infection, and pneumothorax. The patient understood the risks and agreed to proceed. The skin was prepped and draped in sterile fashion. 1% lidocaine was used for local anes thesia. Under ultrasound guidance, a 5 Fr catheter with trochar was advanced into the left pleural ef fusion. Fluid was aspirated. The catheter was removed, and a dressing was applied. There were no imme diate complications. FINDINGS: Ultrasound images demonstrate a large left pleural effusion and the catheter within the fluid. There is nodular parietal pleura at the periphery of the effusion suspicious for metastatic disease. IMPRESSION: 1. Successful ultrasound-guided thoracentesis yielding 1100 mL of cloudy reddish keith-colored fluid . Reviewed, dictated and finalized at location A. APPLICATIONS ENGINEER IMPRESSION: 1. Successful ultrasound-guided thoracentesis yielding 1100 mL of cloudy reed sh keith-colored fluid.
--- NOTE | 2023-05-24 15:41 | ECG_ITS ---
Measurements Intervals [place] Rate: 120 P: NM: 0 QRS: -18 QRSD: 89 T: 157 QT: 336 QTc: 475 Interpretive Statements SINUS OR ECTOPIC ATRIAL TACHYCARDIA ATRIAL PREMATURE COMPLEXES DELAYED PRECORDIAL R/S TRANSITION LOW QRS VOLTAGE IN LIMB LEADS BORDERLINE ST-T WAVE ABNORMALITY- INF/HIGH LAT LEADS BASELINE ARTIFACT- I, III, AVR, AVL, AVF, V2 ABNORMAL ECG COMPARISON TO PRIOR ECG 11-07-19 2:19 SINUS OR ECTOPIC ATRIAL TACHYCARDIA NOW PRESENT Electronically Signed On 05-24-2023 15:57:27 NUCLEAR REACTOR OPERATOR by Catalino Olivier D.O.
[2023-05-24 15:56] LABS: Hematocrit 46.7 % (42.0-52.0); Hemoglobin 15.1 g/dL (14.0-18.0); Mean Corpuscular HGB Conc 32.3 g/dl (32-36); Mean Corpuscular Hemoglobin 29.4 pg (26-34); Mean Platelet Volume 9.3 fl (7.4-10.4); Platelet Count Result 292 k/mm3 (150-375); Red Blood Count 5.13 M/mm3 (4.6-6.20); Red Cell Distribution Width 15.4 % (11.5-14.5)
[2023-05-24 16:02] LABS: Alveolar/Arterial O2 Gradient 204.6 mmHg; Base Excess ABG 8.8 mEq/l (+/-2.0); Fractional Inspired Oxygen 45 %; HCO3 ABG 30.8 mEq/l (22.0-26.0); Oxygen Content ABG 20.7 %vol (16.0-22.0); Oxygen Saturation ABG 97.1 % (95.0-100.0); PCO2 ABG 33.8 mmHg (35.0-45.0); PO2 ABG 77.8 mmHg (80.0-100.0); PO2 FiO2 Ratio Arterial Blood 1.73 %; Total Hemoglobin 15.8 g/dL (12.0-18.0)
[2023-05-24 16:05] LABS: Device NON-INVASIVE VENT; Modified Allen's Test Pass; Site Drawn LEFT RADIAL; pH ABG 7.577 (7.350-7.450)
[2023-05-24 16:06] LABS: Non-Invasive Expiratory Pressure 7 CMH2O; Non-Invasive Inspiratory Pressure 14 CMH2O; Non-Invasive Vent Rate 18 /MIN
[2023-05-24 16:09] LABS: Alanine Aminotransferase 141 U/L (6-50); Albumin Level 3.1 g/dL (3.5-5.1); Alkaline Phosphatase 310 U/L (38-126); Anion Gap 4 mmol/L (8-16); Aspartate Amino Transferase 114 U/L (17-59); Bilirubin,Total 1.1 mg/dL (0.2-1.3); Blood Urea Nitrogen 26 mg/dL (9-20); Calcium 8.6 mg/dL (8.4-10.2); Carbon Dioxide 34 mmol/L (22-30); Chloride 100 mmol/L (98-107); Estimated CRCL calculation 90 ml/min; Estimated Glomerular Filt Rate > 60; Glucose 113 mg/dL (65-110); Potassium 3.2 mmol/L (3.4-5.0); Sodium 138 mmol/L (137-145)
[2023-05-24 16:16] LABS: Band Neutrophils Percent 1 % (0-6); Monocytes Absolute Manual 0.66 K/mm3 (0.1-0.90); Monocytes Percent Manual 3 % (3-9); Neutrophils Absolute Manual 21.34 K/mm3 (1.3-6.7); Neutrophils Percent Manual 96 % (46-73); Platelet Estimate Adequate (Adequate); Schistocytes None Seen (NORMAL); Total Cells Counted 100
[2023-05-24 16:21] LABS: NT Pro B Type Natriuretic Pept 640 pg/mL (19.9-100)
[2023-05-24 16:29] LABS: D Dimer 3.73 ug/mL (<0.48)
--- NOTE | 2023-05-24 16:35 | ED.SOB ---
HPI - SOB/Dyspnea General Chief Complaint: Shortness of Breath/Dyspnea Stated Complaint: CP, SOB Time Seen by Provider: 05/24/23 15:41 Source: patient Limitations: clinical condition (difficult to converse while on non invasive oxygen) History of Present Illness HPI Narrative: Pt presents with SOB, worsening over the past few days. Associated with CP. He has a diagnosis of small cell lung cancer and COPD. Denies being on inhalers or currently on any cancer treatment. He has known tumors in his liver. Patient is a nearly lifelong a smoker although with periods of cessation. He did resume smoking approximately 4 years ago after the his but quit recently, approximately 6 weeks ago. Denies fevers. Has been coughing. He is on [place] tablets (prescribed by PCP) as well as omeprazole, ProAir, and potassium. Not on a diuretic. EMS placed on CPAP for work of breathing; no report of hypoxia. Related Data Home Medications Medication Instructions Recorded Confirmed hydrocodone 5 mg-acetaminophen 325 1 tablet PO Q8H PRN Breakthrough 05/24/23 05/24/23 mg tablet Pain, Moderate Allergies Allergy/AdvReac Type Severity Reaction Status Date / Time shellfish derived Allergy Severe Swelling Verified 05/24/23 11:41 of the Eye shrimp Allergy Intermediate Swelling Verified 05/24/23 11:41 [facility] Past Medical History Medical History Chronic obstructive pulmonary disease Colon polyps Degenerative joint disease Gastroesophageal reflux disease Hyperlipidemia Non-small cell carcinoma of lung Arising in the right upper lobe status post lobectomy in June 2019. Rhabdomyolysis Small cell lung cancer PET scan in 04/2023 showed evidence of distant metastases involving the abdominal lymph nodes, liver, and bones. Tobacco dependence Surgical History Surgical History History of back surgery History of colonoscopy with polypectomy History of hernia repair History of lobectomy of lung (06/2019) Right upper lobectomy per Dr. Lee ([facility]). History of surgery on arm Family History Family History Sibling Acute myocardial infarction, Onset Age: 60 Family history of respiratory disorder Mother Family history of emphysema Father Mesothelioma Social History Social History (Updated 05/25/23 @ 00:44 by Cassie Casillas PA-C) Social History: Surrogate medical decision maker: Corrine Coffman, niece. Code status: Full code. Smoking packs per day: 1 Smoking cigarettes per day: 20.0 Years smoked: 45 Smoking pack-years: 45.00 Smoking status: Former smoker Second hand tobacco smoke exposure: Yes Alcohol intake: never Substance use: never Substance use type: does not use Do You Feel Safe in your Home?: Yes Lack of Transportation: No Lack of Food: Never True Current Housing: I Have Housing Concerned About Future Housing: No Difficulty Paying Gas/Electric Bills: No Difficulty Paying for Meds: No Currently Unemployed: No Education: Decline to Answer Difficulty w/ Childcare or Family Care: No Living arrangements: with family Additional living arrangements comments: . Has 16 year-old daughter. 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 Spiritual care concerns: No Exam Narrative: GENERAL: well-nourished HEAD: Normocephalic, atraumatic. EYES: Non injected, non icteric ENT: Nares clear, no rhinorrhea or epistaxis. NECK: Supple. CHEST: Respiratory distress, tachypneic. Coarse b/l breath sounds. On CPAP initially, transitioned to bipap. HEART: Tachycardic rate and rhythm. . ABDOMEN: Soft, nondistended. EXTREMITIES: Normal range of motion. Bilateral lower extremity edema. SKIN: Warm, dry, no rash. NEURO: No focal d
[2023-05-24] MEDS: ALBUTEROL SULFATE NEB 2.5 MG/3 ML INH INHALATION (16:54)
[2023-05-24] MEDS: IPRATROPIUM 0.5 MG/ALBUTEROL SULFATE 2.5 MG AMPUL.NEB 3 ML INHALATION (16:54)
[2023-05-24] MEDS: predniSONE 20 MG TABLET 60 MG PO (17:39)
[2023-05-24] MEDS: FUROSEMIDE INJ 40 MG/4 ML VIAL IV PUSH (17:39)
[2023-05-24] MEDS: POTASSIUM CHLORIDE 20 MEQ PACKET (FOR LIQUID) 40 MEQ PO (17:39)
[2023-05-24] MEDS: ACETAMINOPHEN 325 MG TABLET 650 MG PO (18:29)
[2023-05-24] MEDS: HYDROcodone/acetaminophen (*CRX) 10-325 MG TABLET 1 TAB PO (18:30)
[2023-05-24] MEDS: DOXYCYCLINE 100 MG/NS 100 ML 100 MG/100 ML BAG IVPB (18:42)
--- NOTE | 2023-05-24 19:29 | ECG_ITS ---
Measurements Intervals [place] Rate: 72 P: 48 [place]: 123 QRS: 21 QRSD: 102 T: 119 QT: 394 QTc: 433 Interpretive Statements SINUS RHYTHM POSSIBLE LEFT ATRIAL ENLARGEMENT NONSPECIFIC ST & T-WAVE ABNORMALITY- INF/HIGH LAT LEADS BASELINE ARTIFACT- I, II, III, AVR, AVL, AVF BORDERLINE ECG COMPARED TO ECG 05/24/2023 15:46:22 SINUS RHYTHM NOW PRESENT Electronically Signed On 05-25-2023 6:39:53 CONSULTING UTILITY FORESTER by Catalino Olivier D.O.
[2023-05-24 20:18] LABS: Troponin I 0.041 ng/mL (0.000-0.034)
[2023-05-24 21:15] LABS: INR 1.1; Prothrombin Time 14.2 Seconds (11.1-14.7)
--- NOTE | 2023-05-24 21:17 | PM.IMHP ---
H&P: HPI History of Present Illness Date/Time: 05/24/23 22:30 Chief Complaint: Shortness of breath. Narrative: This is a very pleasant 63-year-old male with history of non-small cell lung carcinoma in June 2019 and a recent diagnosis of small cell carcinoma arising in the left upper lobe on biopsy taken 05/18/2023 with PET scan showing evidence of distant metastases who presented to the emergency department following a radiation oncology appointment for evaluation of shortness of breath. The patient provides the following history. He has not been feeling well for a little over a month around the time he had his PET scan on 04/21/2023. He reports an unintentional 40 lb weight loss since January which he blames on a poor appetite, ongoing issues with constipation due to pain medication, hoarseness, worsening left-sided pleuritic pain, orthopnea, increasing lower extremity edema, and frequent sinus drainage on the right. He denies fever but reports feeling cold. No exertional chest pain. He denies vomiting and diarrhea. No calf pain or tenderness. He denies history of cardiac disease and venous thromboembolism. He went to the emergency department after his radiation oncology appointment as he was feeling increasingly short of breath. He seemed to be in quite a bit of distress on arrival and was briefly started on a BiPAP though that has been weaned. Initially he was given a dose of furosemide IV due to his significant lower extremity edema though his history and exam findings are more suggestive of dehydration. His labs were significant for a WBC count of 22, D-dimer 3.73, potassium 3.2, carbon dioxide 34, BUN 26, AST 114, ALT 141, alkaline phosphatase 310, LDH 670, troponin 0.041, proBNP 640. CTA of the chest was negative for pulmonary embolism but did show a large left pleural effusion, evidence of multifocal pneumonia, and worsened metastatic disease. He has been started on and doxycycline for findings of pneumonia. He is being admitted in this setting for further treatment. Review of Systems Review of Systems: Twelve systems were reviewed and are negative except for as per HPI. [facility] Past Medical History Medical History Chronic obstructive pulmonary disease Colon polyps Degenerative joint disease Gastroesophageal reflux disease Hyperlipidemia Non-small cell carcinoma of lung Arising in the right upper lobe status post lobectomy in June 2019. Rhabdomyolysis Small cell lung cancer PET scan in 04/2023 showed evidence of distant metastases involving the abdominal lymph nodes, liver, and bones. Tobacco dependence Surgical History Surgical History History of back surgery History of colonoscopy with polypectomy History of hernia repair History of lobectomy of lung (06/2019) Right upper lobectomy per Dr. Lee ([facility]). History of surgery on arm Family History Family History Sibling Acute myocardial infarction, Onset Age: 60 Family history of respiratory disorder Mother Family history of emphysema Father Mesothelioma Social History Social History (Updated 05/25/23 @ 00:44 by Cassie Casillas PA-C) Social History: Surrogate medical decision maker: Corrine Coffman, niece. Code status: Full code. Smoking packs per day: 1 Smoking cigarettes per day: 20.0 Years smoked: 45 Smoking pack-years: 45.00 Smoking status: Former smoker Second hand tobacco smoke exposure: Yes Alcohol intake: never Substance use: never Substance use type: does not use Living arrangements: with family Additional living arrangements comments: . Has 16 year-old daughter. 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 Spiritual care concerns: No Meds Home Medications a
[2023-05-24 21:19] LABS: Albumin Level 3.4 g/dL (3.5-5.1); Amylase 184 U/L (30-110); Bilirubin,Total 1.2 mg/dL (0.2-1.3); Cholesterol 141 mg/dL (0-200); Glucose 121 mg/dL (65-110); Lactate Dehydrogenase 670 U/L (120-246); Triglycerides 179 mg/dL (<150)
--- NOTE | 2023-05-24 21:26 | ADMGEN ---
This patient, Edmar Harden, was admitted to IMU Room 210-01. Patient/family oriented to hospital policies and general routines including ID bracelet, bed and alarms, visiting hours, pain management, procedures, bathroom and other care routines, personal items, smoking policy, room service/diet, and visiting hours. Information on how to activate the Rapid Response Team has been discussed. Patient/Family are encouraged to report perceived risks to care and to ask questions if they do not understand what they are told or what they should do.
[2023-05-24] MEDS: AZITHROMYCIN 500 MG/NS 250 ML 500 MG/250 ML BAG 250 MG IVPB (22:12)
[2023-05-24] MEDS: SODIUM CHLORIDE 0.9% IV 100 ML 10 ML (22:21)
[2023-05-24 22:46] LABS: Influenza A QL RT-PCR Negative (Negative); Influenza B QL RT-PCR Negative (Negative); RSV RNA, RT-PCR Negative (Negative); SARS-CoV-2 RNA PCR Negative (Negative)
[2023-05-24 23:43] LABS: MRSA (PCR) NOT DETECTED (NOT DETECTE)
[2023-05-25] VITALS (20 sets, daily range): BP systolic 115–142; BP diastolic 72–91; PULSE 77–110; RESP 16–23; TEMP 36.1–36.8; O2SAT 89–96; BMI 29.8
[2023-05-25] MEDS: POTASSIUM CHLORIDE 20 MEQ ER TABLET PO (01:22)
[2023-05-25] MEDS: guaiFENesin 12 HR 600 MG TABCR 1200 MG PO ×3 (01:22→20:11)
[2023-05-25] MEDS: oxyCODONE HCL (*CRX) 5 MG TAB IR PO ×4 (01:22→21:55)
[2023-05-25] MEDS: LACTATED RINGERS 1,000 ML 100 ML IV CONT (02:13)
[2023-05-25 05:10] LABS: Hematocrit 44.3 % (42.0-52.0); Hemoglobin 14.2 g/dL (14.0-18.0); Mean Corpuscular HGB Conc 32.1 g/dl (32-36); Mean Corpuscular Hemoglobin 29.9 pg (26-34); Mean Corpuscular Volume 93.3 fl (80-100); Mean Platelet Volume 9.7 fl (7.4-10.4); Platelet Count Result 245 k/mm3 (150-375); Red Blood Count 4.75 M/mm3 (4.6-6.20); Red Cell Distribution Width 15.4 % (11.5-14.5); White Blood Count 17.6 K/mm3 (4.5-10.0)
[2023-05-25 06:16] LABS: Thyroid Stimulating Hormone Reflex 0.396 uIU/mL (0.465-4.68)
[2023-05-25] MEDS: HYDROcodone/acetaminophen (*CRX) 5-325 MG TABLET 2 TAB PO ×4 (06:43→20:12)
[2023-05-25 06:57] LABS: Alanine Aminotransferase 141 U/L (6-50); Albumin Level 2.8 g/dL (3.5-5.1); Alkaline Phosphatase 293 U/L (38-126); Anion Gap 5 mmol/L (8-16); Aspartate Amino Transferase 110 U/L (17-59); Bilirubin,Total 1.1 mg/dL (0.2-1.3); Blood Urea Nitrogen 28 mg/dL (9-20); Calcium 8.5 mg/dL (8.4-10.2); Carbon Dioxide 29 mmol/L (22-30); Chloride 103 mmol/L (98-107); Estimated CRCL calculation 102 ml/min; Estimated Glomerular Filt Rate > 60; Glucose 107 mg/dL (65-110); Magnesium 2.4 mg/dL (1.6-2.3); Potassium 3.4 mmol/L (3.4-5.0); Sodium 137 mmol/L (137-145)
--- NOTE | 2023-05-25 08:19 | PM.IMPN ---
Progress Note: A&P Assessment and Plan (1) Acute respiratory failure with hypoxia: Code(s): J96.01 - Acute respiratory failure with hypoxia Status: Acute Assessment and Plan: Previously on BiPAP now on nasal cannula breathing better and saturating well. Large pleural effusion set for therapeutic and diagnostic thoracentesis today around noon (2) Pneumonia: Code(s): J18.9 - Pneumonia, unspecified organism Status: Acute Assessment and Plan: Rocephin and doxycycline on going (3) Pleural effusion on left: Code(s): J90 - Pleural effusion, not elsewhere classified Status: Acute Assessment and Plan: Therapeutic and diagnostic thoracentesis around noon today (4) Small cell lung cancer: Code(s): C34.90 - Malignant neoplasm of unspecified part of unspecified bronchus or lung Status: Acute Assessment and Plan: Oncology recommending urgent transfer to [facility] to begin chemotherapy stat. Patient is on operating room schedule for 16:30 port placement (5) Hypokalemia: Code(s): E87.6 - Hypokalemia Status: Acute Assessment and Plan: Potassium 3.4 after correction (6) Transaminitis: Code(s): R74.01 - Elevation of levels of liver transaminase levels Status: Acute Assessment and Plan: Stable (7) Chronic obstructive pulmonary disease: Code(s): J44.9 - Chronic obstructive pulmonary disease, unspecified Status: Acute Assessment and Plan: Of note (8) Protein-calorie malnutrition, moderate: Code(s): E44.0 - Moderate protein-calorie malnutrition Status: Acute Assessment and Plan: Moderate protein calorie malnutrition related to inadequate energy intake with reduced appetite as evidenced by Pt report of poor po intake for the last few months, -15% wt loss x 3 months Time Spent With Patient Time with patient: Greater than 35 minutes Subjective Date/time seen: 05/25/23 08:19 Interval history: Patient reports that his breathing is much better today. He is on nasal cannula rather than BiPAP at this time. Still notes shortness of breath in some labored respirations. White blood cell count remains elevated but is improving, currently 17 6. He is on Rocephin and doxycycline for pneumonia. He is going to have therapeutic and diagnostic thoracentesis large pleural effusion. General surgery seen patient and consented him for port placement. Oncology has seen patient and is recommending transfer to [facility] to initiate chemotherapy emergently for large lung mass. Though his diagnosis is terminal they believe that radiation and chemotherapy will help extend his life in a meaningful way up to a year. Patient is on the schedule for thoracentesis around noon and port placement around 16:30 today. Oncology is attempting to make transfer arrangements through [facility] at this time. Review of Systems Review of Systems: Twelve systems were reviewed and are negative except for as per HPI. Exam Narrative: General: Moderately ill-appearing gentleman sitting at the side of the bed. Voice is hoarse. HEENT: Normocephalic, atraumatic. PERRL, EOMI. Sclera anicteric. Dry mucous membranes. Neck: Supple. Mild jugular venous distension. Respiratory: Conversational dyspnea though he appears in no acute distress. He is able to speak in 4 to 5 word sentences. Lung sounds are diminished at the left base with scattered, coarse rales throughout. Occasional upper airway rhonchi are noted but improve with cough. Cardiovascular: Regular rate and rhythm with S1-S2. Gastrointestinal: Abdomen is slightly distended with positive bowel sounds. Mild tenderness to palpation throughout the abdomen. No guarding or rebound tenderness. Skin: Warm and dry. No rash or lesions on limited exam. Extremities: No cyanosis or clubbing. He has pitting edema of the lower legs. No palpable knots or cords. Peripheral pulses intact
[2023-05-25 08:35] LABS: Total Triiodothyronine (T3) 0.75 NG/ML (0.97-1.69)
[2023-05-25] MEDS: polyethylene glycoL 3350 17 GM POWD.PACK PO (09:39)
[2023-05-25] MEDS: PANTOPRAZOLE 40 MG TABLET PO ×2 (09:39→20:11)
[2023-05-25] MEDS: SENNA/DOCUSATE SODIUM TABLET 1 TAB PO ×2 (10:26→17:23)
[2023-05-25] MEDS: DOCUSATE SODIUM 100 MG CAPSULE PO ×2 (10:26→20:11)
--- NOTE | 2023-05-25 10:41 | PM.CNGS ---
Assessment and Plan Assessment and plan (1) Small cell lung cancer: Code(s): C34.90 - Malignant neoplasm of unspecified part of unspecified bronchus or lung Status: Acute Assessment and Plan: Patient with recent diagnosis of metastatic small cell lung cancer. Oncology consulted and recommending transfer to [facility] for more urgent initiation of chemotherapy. We have been consulted for Bradly cath placement, which I have discussed with the patient in detail. Description of the procedure, risks, benefits, and alternatives were discussed with the patient in detail. We discussed risks of bleeding, as well as infection, and risk of injury to surrounding structures and possibility of pneumothorax. Patient understands and wishes to proceed. He is scheduled for a thoracentesis today and we will add him onto the surgery schedule this afternoon for Bradly cath insertion by Dr. Goncalves. (2) Pleural effusion on left: Code(s): J90 - Pleural effusion, not elsewhere classified Status: Acute Assessment and Plan: Large left pleural effusion with plans for US-guided thoracentesis today in Radiology. (3) Pneumonia: Code(s): J18.9 - Pneumonia, unspecified organism Status: Acute Assessment and Plan: Continue antibiotics and management per primary service. (4) Leukocytosis: Code(s): D72.829 - Elevated white blood cell count, unspecified Status: Acute Assessment and Plan: WBC 22k on admission and down to 17. Found to have multifocal pneumonia which could be the etiology. Blood cultures pending. Discussed this with Dr. Goncalves in the setting of placing a tunnelled venous catheter. (5) Acute respiratory failure with hypoxia: Code(s): J96.01 - Acute respiratory failure with hypoxia Status: Acute Assessment and Plan: Patient in the IMU and on 1 liter of oxygen. He is tachypneic but does not appear to be in any acute respiratory distress. Plan for thoracentesis today for large left pleural effusion. (6) Chronic obstructive pulmonary disease: Code(s): J44.9 - Chronic obstructive pulmonary disease, unspecified Status: Acute Plan I have discussed the patient's case and plan of care with Dr. Goncalves. History of Present Illness Consult details Consult date: 05/25/23 Reason for consult: other (Port placement) Requesting physician: Cassie Casillas PA-C Narrative: This is a 63-year-old man with a history of RUL non-small cell lung cancer status lobectomy in 2020. He was recently diagnosed in April with small cell carcinoma arising in the left upper lobe. He has a recent PET scan showing evidence of distant metastasis and has been seen by Oncology who wishes to start him on chemotherapy and referred him to the radiation oncologist. He had a consultation with the radiation oncologist yesterday and was referred to the ER due to shortness of breath. CTA of the chest showed no pulmonary embolism, but a large left pleural effusion, multifocal pneumonia, and worsened metastatic disease. He has been admitted to the hospitalist service. He is scheduled for a thoracentesis today in Radiology and has been NPO for this. Initial labs revealed white blood cell count of 22,000. In the ER, he was tachypneic and tachycardic. Blood cultures were drawn and are pending. Our service was consulted today for port placement. He is now seen on the medical floor. Denies any other surgeries to his neck or chest other than the right upper lobe lobectomy in 2020. Oncology has been consulted and wishes to transfer the patient to [facility] to initiate chemotherapy as soon as possible. Review of Systems Review of Systems: All systems reviewed & are unremarkable except as noted in HPI and below PMFSH Past Medical History Medical History Chronic obstructive pulmonary disease Colon polyps Degenerative joint disease Gastroesophageal reflux disease Hype
[2023-05-25] MEDS: PERFLUTREN LIPID MICROSPHERES 1.5 ML VIAL DILUTED TO 10 ML TOTAL VOLUME IV PUSH (10:50)
--- NOTE | 2023-05-25 11:07 | PDONCCN ---
HPI - Date of Consult Date/Time: 05/25/23 18:31 <Edmond Rodgers - 05/25/23 18:34> 05/25/23 11:07 <Cheyanne Ta - 05/25/23 11:18> Requesting Physician: Meng Ruiz MD <Edmond Rodgers - 05/25/23 18:34> Meng Ruiz MD <Cheyanne Ta - 05/25/23 11:18> Primary Care Provider: UNKNOWN,DOCTOR <Edmond Rodgers - 05/25/23 18:34> UNKNOWN,DOCTOR <Cheyanne Ta - 05/25/23 11:18> - Consult Narrative Reason for consult: NSCLC <KeyonCheyanne 05/25/23 11:18> Narrative: Edmar Harden is a 63 year old male <Edmond Rodgers - 05/25/23 18:34> Edmar Harden is a 63 year old male HLD and NSCLC diagnosed in Jun 2019 with T1N0 non small cell lung cancer status post robotic right upper lobe lobectomy. Pt was seen by his primary care physician with L sided chest wall pain and a CTA chest was completed Apr 2023 that showed upper L lobe mass consistent with primary bronchogenic carcinoma with left hilar and mediastinal lymphadenopathy. PET scan was completed Apr 21 that showed widespread thoracic and abdominal lymphadenopathy with multiple liver masses and multiple foci of abnormal skeletal FDG uptake. On May 18, 2023, a FNA was done that came back positive for small cell carcinoma. We recommended started chemotherapy with immunotherapy combination with carboplatin AUC 5 along with VEGETABLE TIER-16 100mg/m2 for 3 days along with Tecentriq 1200mg day 1 repeated every 21 day cycle for 4 cycles followed by maintenance Tecentriq treatment. He was seen for a radiation oncology consult by Dr. Arevalo who recommended palliative radiation but also recommended him to go to the ED d/t his shortness of breath and work of breathing. Edmar is on 1L oxygen at this time. He states he is feeling better and only has shortness of breath on exertion. He is still losing weight and unable to eat. <Cheyanne Ta - 05/25/23 11:18> Review of Systems - Review of Systems All systems reviewed & are unremarkable except as noted in HPI and bel <Tomac,Cheyanne - 05/25/23 11:25> [facility] Medical History: Medical History (Last Reviewed 05/25/23 @ 10:52 by SHARI Marquez) Chronic obstructive pulmonary disease Colon polyps Degenerative joint disease Gastroesophageal reflux disease Hyperlipidemia Non-small cell carcinoma of lung Arising in the right upper lobe status post lobectomy in June 2019. Rhabdomyolysis Small cell lung cancer PET scan in 04/2023 showed evidence of distant metastases involving the abdominal lymph nodes, liver, and bones. Tobacco dependence <Ana Maria,Edmond M. - 05/25/23 18:34> Medical History (Last Reviewed 05/25/23 @ 10:52 by SHARI Marquez) Chronic obstructive pulmonary disease Colon polyps Degenerative joint disease Gastroesophageal reflux disease Hyperlipidemia Non-small cell carcinoma of lung Arising in the right upper lobe status post lobectomy in June 2019. Rhabdomyolysis Small cell lung cancer PET scan in 04/2023 showed evidence of distant metastases involving the abdominal lymph nodes, liver, and bones. Tobacco dependence <TomdixonOscarCheyanne - 05/25/23 11:18> Surgical History: Surgical History (Last Reviewed 05/25/23 @ 10:52 by SHARI Marquez) History of back surgery History of colonoscopy with polypectomy History of hernia repair History of lobectomy of lung Onset Date: 06/2019 Right upper lobectomy per Dr. Lee ([facility]). History of surgery on arm <Ana Maria,Edmond M. - 05/25/23 18:34> Surgical History (Last Reviewed 05/25/23 @ 10:52 by SHARI Marquez) History of back surgery History of colonoscopy with polypectomy History of hernia repair History of lobectomy of lung Onset Date: 06/2019 Right upper lobectomy per Dr. Lee ([facility]). History of surgery on arm <TomacCheyanne - 05/25/23 11:18> Family History: Family History (Last Reviewed 05/25/23
--- NOTE | 2023-05-25 11:17 | IVDEFINITY ---
Prior to administration of IV Definity the patient was educated on the risks and benefits of the imaging enhancing agent including potential adverse side effects. The patient verbalized understanding. Allergies were verified. No exclusion criteria were identified and at least one of the following inclusion criteria were met: 1) physician request, 2) patient technically difficult to image (per the [place] [employer] guidelines of two or more segments not discernable within the apical view), or 3) questionable left ventricular function. ?
--- NOTE | 2023-05-25 11:41 | PM.TDS ---
Transfer Discharge Sum: Prov Provider Date of admission: 05/24/23 18:40 Primary care physician: UNKNOWN,DOCTOR Admitting clinician: Meng Ruiz MD Consults: 05/24/23 Consult to Physician Routine Comment: called Dr. Rodgers with consult information Consulting Provider: Edmond Rodgers outbound call center representative/MD group to consult: Dr. Rodgers Reason for consultation: SCLC Has provider been notified: Yes Consult to Physician Routine Comment: called office with consult information Consulting Provider: Moustapha Goncalves outbound call center representative/MD group to consult: surgery Reason for consultation: needs port for chemo Has provider been notified: Yes 05/24/23 18:43 Care Coordination Consult Routine Comment: Reason for Consult:: Other Attending physician on discharge: Itzel Freeman Discharging clinician: Holger Sherwood Anticipated date of transfer: 05/25/23 Receiving physician/facility: Dr. Navarro Hospitalist and Dr. Jaffe Oncologist at [facility] DS: Admitting Diagnosis Discharge Date 05/25/2023 Admitting Diagnosis Acute respiratory failure with hypoxia, pneumonia, pleural effusion on the left, small cell count lung cancer, hypokalemia, transaminitis, COPD DS: Discharge Diagnosis Discharge Diagnosis (1) Acute respiratory failure with hypoxia: Code(s): J96.01 - Acute respiratory failure with hypoxia Status: Acute Assessment and Plan: Previously on BiPAP now on nasal cannula breathing better and saturating well. Large pleural effusion set for therapeutic and diagnostic thoracentesis today around noon (2) Pneumonia: Code(s): J18.9 - Pneumonia, unspecified organism Status: Acute Assessment and Plan: Rocephin and doxycycline on going (3) Pleural effusion on left: Code(s): J90 - Pleural effusion, not elsewhere classified Status: Acute Assessment and Plan: Therapeutic and diagnostic thoracentesis around noon today (4) Small cell lung cancer: Code(s): C34.90 - Malignant neoplasm of unspecified part of unspecified bronchus or lung Status: Acute Assessment and Plan: Oncology recommending urgent transfer to [facility] to begin chemotherapy stat. Patient is on operating room schedule for 16:30 port placement (5) Hypokalemia: Code(s): E87.6 - Hypokalemia Status: Acute Assessment and Plan: Potassium 3.4 after correction (6) Transaminitis: Code(s): R74.01 - Elevation of levels of liver transaminase levels Status: Acute Assessment and Plan: Stable (7) Chronic obstructive pulmonary disease: Code(s): J44.9 - Chronic obstructive pulmonary disease, unspecified Status: Acute Assessment and Plan: Of note (8) Protein-calorie malnutrition, moderate: Code(s): E44.0 - Moderate protein-calorie malnutrition Status: Acute Assessment and Plan: Moderate protein calorie malnutrition related to inadequate energy intake with reduced appetite as evidenced by Pt report of poor po intake for the last few months, -15% wt loss x 3 months Plan Transfer to [facility] after port placement Transfer Discharge Sum: Med Medications Active and Home Medications: Home Medications albuterol sulfate 90 mcg/actuation aerosol inhaler (ProAir HFA) 2 inh inhalation Q4-6H PRN shortness of breath or wheezing #8.5 grams 09/28/22 [Rx Confirmed 05/24/23] omeprazole 40 mg capsule,delayed release 40 mg PO DAILY #90 caps 04/06/23 [Rx Confirmed 05/24/23] naloxone 4 mg/actuation nasal spray (Narcan) 4 mg intranasal Q2-3M PRN opioid overdose #2 ea 05/23/23 [Rx Confirmed 05/24/23] oxycodone 5 mg tablet 5 mg PO Q8H PRN pain #30 tabs 05/23/23 [Rx Confirmed 05/24/23] hydrocodone 5 mg-acetaminophen 325 mg tablet 1 tablet PO Q8H PRN Breakthrough Pain, Moderate 05/24/23 [History Confirmed 05/24/23] Active Medications Acetaminophen (Acetaminophen 325 Mg Tablet) 650 mg PO Q6H PRN PRN Reason: Mild Pain (1-3) or Fever Vancleave
--- NOTE | 2023-05-25 11:43 | P.CDI_ITS ---
CDI Query Clarification Request BMI 29.8 Nutritional Diagnostic Statement Moderate protein calorie malnutrition related to inadequate energy intake with reduced appetite as evidenced by Pt report of poor po intake for the last few months, -15% wt loss x 3 months. Please refer to the comprehensive nutrition assessment for further information. Please clarify the severity of protein calorie malnutrition if known: * Mild * Moderate * Severe * Other/Unspecified <Judit Wallis RN - Last Filed: 05/25/23 11:47> Clarified Diagnosis Clarified Diagnosis: Moderate protein calorie malnutrition related to inadequate energy intake with reduced appetite as evidenced by Pt report of poor po intake for the last few months, -15% wt loss x 3 months. <Holger Sherwood APRN - Last Filed: 05/25/23 13:03>
[2023-05-25 12:59] LABS: pH Pleural Fluid > 7.500 (7.210-7.500)
--- NOTE | 2023-05-25 13:31 | PC.NURSE ---
To OR per kylee. Report given to Doroteo KELLY.
[2023-05-25 13:51] LABS: Appearance Pleural Fluid Cloudy (Clear); Color Pleural Fluid Yellow (Colorless); Lymphocytes Pleural Fluid 60 %; Macrophages Pleural Fluid 11 %; Mesothelial Cells Pleural Flui 7 %; Monocytes Pleural Fluid 12 %; Neutrophils Pleural Fluid 2 % (0-25); Pleural fluid source Pleural fluid
[2023-05-25 13:52] LABS: Other Cells Pleural Fluid 8 %
--- NOTE | 2023-05-25 14:08 | WPDANESEPPF ---
Anes - Initial Pre Proc Eval Procedure: Operation Date: 05/25/23 15:00 Proposed Procedures p Insertion Bradly Cath - Moustapha Goncalves MD Date/Time: 05/25/23 14:08 Surgeon: Meng Ruiz MD Pre Op Diagnosis: Pneumonia with Effusion Intermittently on BIPAP, L Patient Data Age: 63 Gender: M Height: 1.83 m Weight: 99.9 kg Last Vital Signs Temp 36.1 C L 05/25/23 11:07 Pulse 87 05/25/23 12:27 Resp 22 H 05/25/23 11:07 BP 117/77 05/25/23 12:27 Pulse Ox 96 05/25/23 12:45 O2 Del Method Nasal Cannula 05/25/23 12:45 O2 Flow Rate 1 05/25/23 12:45 Allergies Allergy/AdvReac Type Severity Reaction Status Date / Time shellfish derived Allergy Severe Swelling Verified 05/24/23 11:41 of the Eye shrimp Allergy Intermediate Swelling Verified 05/24/23 11:41 Home Medications Medication Instructions Recorded Confirmed Type albuterol sulfate 90 mcg/actuation 2 inh inhalation Q4-6H PRN 09/28/22 05/24/23 Rx aerosol inhaler (ProAir HFA) shortness of breath or wheezing #8.5 grams omeprazole 40 mg capsule,delayed 40 mg PO DAILY #90 caps 04/06/23 05/24/23 Rx release naloxone 4 mg/actuation nasal 4 mg intranasal Q2-3M PRN opioid 05/23/23 05/24/23 Rx spray (Narcan) overdose #2 ea oxycodone 5 mg tablet 5 mg PO Q8H PRN pain #30 tabs 05/23/23 05/24/23 Rx hydrocodone 5 mg-acetaminophen 325 1 tablet PO Q8H PRN Breakthrough 05/24/23 05/24/23 History mg tablet Pain, Moderate Laboratory Tests 05/24/23 05/24/23 05/24/23 15:47 15:58 19:46 WBC 22.0 H K/mm3 (4.5-10.0) RBC 5.13 M/mm3 (4.6-6.20) Hgb 15.1 g/dL (14.0-18.0) Hct 46.7 % (42.0-52.0) MCV 91.0 fl (80-100) MCH 29.4 pg (26-34) MCHC 32.3 g/dl (32-36) RDW 15.4 H % (11.5-14.5) Plt Count 292 k/mm3 (150-375) MPV 9.3 fl (7.4-10.4) Immature Gran % (Auto) Not Reportable Neut % (Auto) Not Reportable Lymph % (Auto) Not Reportable [place] % (Auto) Not Reportable Eos % (Auto) Not Reportable Baso % (Auto) Not Reportable Lymph # (Auto) Not Reportable [place] # (Auto) Not Reportable Eos # (Auto) Not Reportable Baso # (Auto) Not Reportable Abs Immat Gran (auto) Not Reportable Absolute Neuts (auto) Not Reportable Absolute Nucleated RBC Not Reportable Total Counted 100 Neutrophils % (Manual) 96 H % (46-73) Band Neutrophils % 1 % (0-6) Monocytes % (Manual) 3 % (3-9) Nucleated RBC % Not Reportable Abs Neuts (Manual) 21.34 H K/mm3 (1.3-6.7) Abs Monocytes (Manual) 0.66 K/mm3 (0.1-0.90) Platelet Estimate Adequate (Adequate) Schistocytes None seen (NORMAL) PT INR D-Dimer 3.73 H ug/mL (<0.48) Puncture Site Left radial ABG pH 7.577 H* (7.350-7.450) ABG pCO2 33.8 L mmHg (35.0-45.0) ABG pO2 77.8 L mmHg (80.0-100.0) ABG PO2/FiO2 Ratio 1.73 % ABG HCO3 30.8 H mEq/l (22.0-26.0) ABG O2 Saturation 97.1 % (95.0-100.0) ABG O2 Content 20.7 %vol (16.0-22.0) ABG Base Excess 8.8 mEq/l (+/-2.0) A-a Gradient 204.6 mmHg Oxyhemoglobin 93.0 % THb (90.0-100.0) Total Hemoglobin 15.8 g/dL (12.0-18.0) O2 Delivery Device Non-invasive vent O2 Liters/Min Not Reportable Vent Rate 18 /MIN FiO2 45 % Expiratory Pressure 7 CMH2O Inspiratory Pressure 14 CMH2O Sodium 138 mmol/L (137-145) Potassium 3.2 L mmol/L (3.4-5.0) Chloride 100 mmol/L (98-107) Carbon Dioxide 34 H mmol/L (22-30) Anion Gap 4 L mmol/L (8-16) B
--- NOTE | 2023-05-25 15:12 | WPDHPUPDATE1 ---
History and Physical Update Update Date/Time: 05/25/23 15:12 History and Physical has been reviewed, including an updated exam of the patient. There are NO changes in the patient's condition. Risks, benefits, and alternatives have been discussed and questions answered. Patient agrees to proceed with procedure.
[2023-05-25] MEDS: HEPARIN SODIUM, PORCINE 10,000 UNITS/10 ML VIAL 1000 UNITS IRRIGATION (15:53)
[2023-05-25] MEDS: HEPARIN SODIUM 5,000 UNITS/ML VIAL 5000 UNITS IV PUSH (15:54)
[2023-05-25] MEDS: LIDO 1%/EPINEPHRINE 1:100,000 20 ML VIAL 7.5 ML INFILTRATE (15:59)
[2023-05-25] MEDS: BUPivacaine HCL 0.5% PF 30 ML VIAL 7.5 ML INFILTRATE (15:59)
--- NOTE | 2023-05-25 16:06 | W.PM.PROC2 ---
Procedure Note - Detailed Date of Procedure 05/25/23 Pre-op Diagnosis Pneumonia with Effusion Intermittently on BIPAP, metastatic lung cancer Post-op Diagnosis Same Procedure Performed Placement of right subclavian vein single-lumen port a catheter with intraoperative fluoroscopy. Surgeon Moustapha Goncalves MD Molding Manager Judit Stanford, SABRINA Anesthesia General Indications Patient is a 60-year-old gentleman who has prior history of a right upper lobe lung resection for lung cancer. Unfortunate has metastatic disease and hilar lymphadenopathy as well as mediastinal lymphadenopathy. Presents for placement of a luda catheter for administration of chemotherapy in the very near future. Findings None significant Description of Procedure After informed consent was obtained patient brought to the operating room was placed supine position and general LMA anesthesia was administered. The bilateral upper anterior neck and chest was then prepped and draped usual sterile fashion. A time-out was then performed correctly identifying the patient as well as procedure to be performed. He was already on scheduled IV antibiotics. I then anesthetized the area just below the medial 3rd of the right clavicle utilizing 1% lidocaine mixed with 0.5% Marcaine 50 50 mixture with some epinephrine. A transverse incision was then made this area with a scalpel the dissection carried down through the subcutaneous tissues until the anterior pectoralis fascia was encountered. I then created the subcutaneous port pocket just below this incision by dissecting subcutaneous tissues off of the anterior pectoralis fascia. This was done with electrocautery and blunt finger dissection. I then proceeded to place the patient head-down Trendelenburg position. A long 18gauge needle was then used to cannulate the right subclavian vein on the 1st pass without any difficulty through the incision. There was prompt return of dark venous appearing blood. A guidewire was advanced through the needle into the right subclavian vein and subsequent down into the right atrium of the heart. Intraoperative fluoroscopy was used to confirm the correct placement of the guidewire. I then proceeded to advance a dilator and breakaway sheath over the guidewire. The dilator and guidewire were removed leaving the sheath in place. A 9.6 Lao single-lumen catheter was advanced through the sheath into the right subclavian vein assess way down into the right atrium the heart. Intraoperative fluoroscopy was used again to visualize the tip of the catheter and then I pulled back on the catheter externals the chest wall to the tip was at the distal superior vena cava and right atrium junction. The catheter was then cut to the appropriate length at the skin level and attached to the Smart Port. The Smart Port was then secured in subcutaneous port pocket on 3 sides utilizing 3-0 Prolene sutures. I then irrigated the port pocket with sterile saline solution hemostasis was excellent. I then proceeded to access the port utilizing Coronel needle and it aspirated blood easily and then I flushed with heparinized saline solution. The incision was then closed utilizing interrupted 3-0 Vicryl sutures in the subcutaneous tissues. The skin edges were then approximated utilizing a running subcuticular 4-0 Monocryl suture. Incision was then cleaned the skin glue was applied. I accessed the port percutaneously with the Coronel needle and it aspirated blood easily and was flushed with 5000units of IV heparin. The patient tolerated the procedure well no complications. All sponges, needles, and instrument counts were correct at the end procedure. EBL was _10__cc. The patient was awakened and taken to recovery in stable and satisfactory condition. Portable chest x-ray to confirm final placement of the tip of the catheter and to rule out pneumothorax was pending at the time of dictation. Implants 9.6 Lao single-lumen catheter attached to Smar
[2023-05-25] MEDS: LACTATED RINGERS 1,000 ML 30 ML IV CONT (16:11)
--- NOTE | 2023-05-25 16:42 | SUR.PHASEI ---
1640 X-ray noted proceed to IMU per MD Goncalves
[2023-05-25] MEDS: IBUPROFEN 400 MG TABLET PO (17:18)
[2023-05-25] MEDS: BISACODYL 10 MG SUPPOSITORY RECTAL (18:10)
[2023-05-25] MEDS: AZITHROMYCIN 500 MG/NS 250 ML 500 MG/250 ML BAG 250 MG IVPB (21:56)
--- NOTE | 2023-05-25 22:49 | ECHO_ITS ---
Patient Info Name: Edmar Harden Age: 63 years : 1960 Gender: Male Ht: 72 in Wt: 220 lbs BSA: 2.27 m2 HR: 85 bpm BP: 136 / 74 mmHg Heart Rhythm: Sinus Rhythm Technical Quality: Poor Exam Date: 05/25/2023 10:17 AM Exam Location: Echo Lab Patient Status: Inpatient Admit Date: 05/24/2023 Staff Ordering Physician: Cassie Casillas PA-C Inventory Control/Shipping Receiving: Angelo Noriega RDCS Attending Provider: Meng Ruiz MD Referring Physician: Vinny IBRAHIM; Exam Type: CA echo dop color flow w con Study Info Indications - SOB, EDEMA, ELEVATED JVD Complete two-dimensional, color flow and Doppler transthoracic echocardiogram is performed with contrast to opacify the left ventricle and to improve the deliniation of the left ventricle endocardial borders. Contrast/Agitated Saline Contrast/Ag. Saline: Definity Amount: 3.00 ml Reason for Poor Study: poor echocardiographic windows Summary 1. Left ventricular chamber dimension is normal. 2. Left ventricular systolic function is normal, estimated at 65-70%. 3. There is mildly increased left ventricular wall thickness. 4. The left ventricular diastolic function is grade I diastolic dysfunction. 5. There is mild mitral valve regurgitation. 6. There is mild tricuspid valve regurgitation. Left Ventricle Left ventricular chamber dimension is normal. Left ventricular systolic function is normal, estimated at 65-70%. There is mildly increased left ventricular wall thickness. The left ventricular diastolic function is grade I diastolic dysfunction. Right Ventricle Right ventricular chamber dimension is normal. Right ventricular systolic function is normal. Left Atria Left atrial chamber dimension is normal. Right Atria Right atrial chamber dimension is normal. Atrial Septum Intact interatrial septum visualized by color flow imaging. Aortic Valve The aortic valve is trileaflet. There is mild aortic valve sclerosis. There is no aortic valve stenosis. There is trace aortic valve regurgitation. Pulmonic Valve The pulmonic valve is normal. There is no pulmonic valve stenosis. There is trace pulmonic regurgitation. Mitral Valve The mitral valve has normal leaflets. There is no mitral valve stenosis. There is mild mitral valve regurgitation. Tricuspid Valve The tricuspid valve leaflets are normal. There is no significant tricuspid valve stenosis. There is mild tricuspid valve regurgitation. No pulmonary hypertension, estimated pulmonary arterial systolic pressure is 20 mmHg. Pericardium/Pleural The pericardium appears normal. There is trivial pericardial effusion. Inferior Vena Cava Normal inferior vena cava with <50% collapse upon inspiration consistent with elevated right atrial pressure, 10 mmHg. Aorta The aortic root size at the sinus of Valsalva is dilated. Left Ventricular Outflow Tract Name Value Normal LVOT 2D LVOT Diameter 1.99 cm LVOT Doppler LVOT Peak Gradient 5 mmHg LVOT Mean Gradient 3 mmHg LVOT VTI 25.90 cm LVOT VTI/AV VTI Ratio 1.04 LVOT Stroke Vo
[2023-05-27 22:57] LABS: Pneumococcal Antigen Urine Not Detected (Not Detected)
[2023-05-28 10:13] LABS: Glucose Pleural Fluid 65 mg/dL; LDH Pleural Fluid 1120 U/L; Total Protein Pleural Fluid 1.8 g/dL
[2023-05-28 18:13] LABS: Amylase, Pleural Fluid 39 U/L
[2023-05-28 22:00] LABS: Albumin Pleural Fluid 1.2 g/dL
[2023-05-29 06:17] LABS: Legionella pneumophila Ag Ur Not Detected (Not Detected)
[2023-05-29 13:55] LABS: Mycoplasma IgM Antibody Titer 49 U/mL (<770)
== END 2023-05-25 22:30 | disposition short-term general hospital (02) | DRG 166 ==
LOC: ANHED 16:04 → ANHIMU 19:49
PROVIDERS: Emergency Medicine; Physician Assistant; Surgery; Admitting Provider Internal Medicine; Emergency Provider Student in an Organized Health Care Education/Training Program; Visit Provider Nurse Practitioner
PROC: 0JH60WZ Insertion of Totally Implantable Vascular Access Device into Chest Subcutaneous Tissue and Fascia, Open Approach (ICD-10-PCS; principal; 2023-05-25 15:00)
DX: J18.9 Pneumonia, unspecified organism (principal); J96.01 Acute respiratory failure with hypoxia; C34.90 Malignant neoplasm of unspecified part of unspecified bronchus or lung; C78.7 Secondary malignant neoplasm of liver and intrahepatic bile duct; C79.51 Secondary malignant neoplasm of bone; J91.0 Malignant pleural effusion; J44.0 Chronic obstructive pulmonary disease with (acute) lower respiratory infection; E44.0 Moderate protein-calorie malnutrition; Z20.822 Contact with and (suspected) exposure to COVID-19; K21.9 Gastro-esophageal reflux disease without esophagitis; E78.5 Hyperlipidemia, unspecified; E87.6 Hypokalemia; R74.01 Elevation of levels of liver transaminase levels; Z87.891 Personal history of nicotine dependence; Z68.29 Body mass index [BMI] 29.0-29.9, adult
CPT/HCPCS: 32555; 36415; 36600; 71045; 71275; 74018; 77001; 80053; 82040; 82042; 82150; 82247; 82465; 82805; 82945; 82947; 83615; 83735; 83880; 83986; 84155; 84157; 84311; 84439; 84443; 84478; 84480; 84484; 85025; 85027; 85380; 85610; 86738; 87040; 87070; 87075; 87205; 87449; 87637; 87641; 87899; 88108; 88184; 88305; 89051; 93005; 93970; 94002; 94640; 94667; 96374; 99285; A9270; C1788; C8929; J0456; J0696; J1644; J1940; J3010; J7030; J7120; J7512; Q9957; Q9967

== ENCOUNTER 2023-08-22 08:35 | Outpatient (CLI) | payer OTHER, SELFPAY ==
--- NOTE | ~2023-08-22 | CT_ITS ---
EXAMINATION: CT chest abdomen pelvis w con DATE: 08/22/2023 09:28 INDICATION: Malignant neoplasm of the upper lobe of the right lung TECHNIQUE: Computed tomography (CT) of the chest, abdomen, and pelvis was performed with 100 mL Omnip aque-350 intravenous contrast. Automated exposure control and iterative reconstruction technique were employed. The dose-length product was 904.13 mGy-cm. COMPARISON: Chest CT dated 05/24/2023 and PET/CT dated 04/21/2023 FINDINGS: CHEST CT: Again seen are postoperative changes of prior right upper lobectomy. Mild emphysema. Moderate-sized p osterior layering left pleural effusion with partial left lower lobe collapse with dependent compress dimitris atelectasis. Marked decrease in size of infiltrating mass extending between the medial aspect of the left upper lobe, the left hilum and left side of the superior mediastinum. For reference at the l evel of the AP window this previously measured 12.4 x 9.5 cm in maximal transaxial dimensions, curren tly measuring 6.2 x 5.1 cm. There has also been interval decrease in size of many of the prior FDG av id epicardial and paraesophageal lymph nodes in the more caudal mediastinum. The previously seen prom inent nodular pleural thickening in the left hemithorax has also nearly resolved with residual small amount of relatively smooth pleural thickening at the medial aspect of the left upper lobe. There is a 12 x 9 mm nodule at the left apex. There is a residual 12 x 9 mm left upper lobe nodule along a justino or bandlike regions of consolidation groundglass opacity. There is some bilateral peripheral and depe ndent predominant groundglass opacities and septal line thickening most likely representing mild pulm onary edema. No right-sided pleural effusion. Heart size is normal. Small amount of atherosclerotic c oronary artery calcification. Thoracic aorta is normal in caliber with no dissection. Right subclavia n central venous port catheter with distal tip at the superior cavoatrial junction. Mild to moderate thoracic spondylosis. Scattered subtle sclerotic bone lesions, the most prominent at T3 and T10 with corresponding increased FDG uptake on prior PET/CT consistent with metastatic disease. ABDOMEN/PELVIS CT: There are multiple hypoenhancing renal masses which are not clearly visualized on the prior chest CT likely due to phase of contrast on the earlier study at which time the liver demonstrated a prominent nodular liver surface which has since resolved. The nodules as evidenced on the current CT appear si gnificantly smaller than on the the earlier PET/CT. For reference a prior 5 cm FDG avid mass in the l eft hepatic lobe has decreased to 2.0 cm and a prior 4.8 cm FDG avid mass at the anterior dome of the liver has decreased to 1.6 cm. Spleen and pancreas are normal. There are bilateral nonenhancing remigio al cysts the largest measuring up to 1.3 cm on the left and 1.6 similar on the right. Several subcentimeter hypoenhancing nodule at the bilateral adrenal glands which have significantly d ecreased in size when compared with the more recent chest CT and correlated with increased FDG uptake on the earlier PET/CT consistent with response to treatment of metastatic disease. Decrease in size since the prior chest CT of multiple enlarged upper abdominal retroperitoneal lymph nodes. For refere nce a prior partial visualized at least 3.7 x 2.2 cm mass situated between the tail the pancreas and the splenic hilum currently measures 2.0 x 1.3 cm. A second previously 2.2 x 2.1 cm enlarged lymph no de near the gastric fundus has decreased to 1.8 x 1.4 cm. There are multiple additional enlarged and places confluent mesenteric lymph nodes at the root of the mesentery and in the small bowel mesentery of the left upper and lower quadrants which are not included on the more recent chest CT but which a ppear enlarged when compared with the earlier head CT. No bowel obstruction. Normal audra
== END 2023-08-22 08:36 | disposition home or self-care (01) ==
PROVIDERS: PCP Family Medicine; Visit Provider Internal Medicine Hematology & Oncology
DX: C34.11 Malignant neoplasm of upper lobe, right bronchus or lung (principal); J90 Pleural effusion, not elsewhere classified; N40.0 Benign prostatic hyperplasia without lower urinary tract symptoms; J81.0 Acute pulmonary edema
CPT/HCPCS: 71260; 74177; Q9967

== ENCOUNTER 2023-09-22 15:53 | Emergency (ER) | payer OTHER, SELFPAY ==
--- NOTE | ~2023-09-22 | XR_ITS ---
EXAMINATION: XR chest 1V portable DATE: 09/22/2023 16:23 INDICATION: Left-sided chest pain and shortness of breath with prior lung cancer TECHNIQUE: frontal view of the chest was obtained. COMPARISON: Chest radiograph dated 05/25/[address] dated 08/22/2023 FINDINGS: Opacities in the left mid to lower lung zone which appears predominantly related to a small to modera te-sized left pleural effusion with loculated components along the lateral left mid and upper lung zo alysha. Associated atelectasis at the left lower lung zone although pneumonia not excludable. Right lung remains clear. No pulmonary edema, pneumothorax or right-sided pleural effusion. Suture line at the right suprahilar region likely related to prior right upper lobectomy. Heart size is normal. Signific ant decrease in a left mediastinal/paramediastinal mass likely representing response to treatment of reported lung cancer. Right subclavian central venous port catheter with distal tip at the caudal sup erior vena cava. IMPRESSION: 1. Small to moderate-sized likely partially loculated left pleural effusion with associated basilar a telectasis versus pneumonia. 2. Decrease in size of a left superior mediastinal/paramediastinal mass consistent with response to t reatment of reported lung cancer. 3. Status post right upper lobectomy with mild emphysema which is better appreciated on prior CT. Reviewed, dictated and finalized at location A. IMPRESSION: 1. Small to moderate-sized likely partially loculated left pleural effusion wit h associated basilar atelectasis versus pneumonia. 2. Decrease in size of a left superior mediastinal/paramediastinal mass consist ent with response to treatment of reported lung cancer. 3. Status post right upper lobectomy with mild emphysema which is better apprec iated on prior CT.
--- NOTE | ~2023-09-22 | CT_ITS ---
EXAMINATION: CTA chest PE protocol DATE: 09/22/2023 19:11 INDICATION: Shortness of breath. Pleural effusion. TECHNIQUE: Computed tomography (CT) pulmonary angiogram of the chest was performed with 100 mL Omnipa que-350 intravenous contrast. Additional 3D reconstructions utilizing coronal maximum intensity proje ction (MIP) were performed. Automated exposure control and iterative reconstruction technique were em ployed. The dose-length product was 537.72 mGy-cm. COMPARISON: None FINDINGS: No pulmonary embolism. Right subclavian central venous port catheter with distal tip at the superior cavoatrial junction. Postoperative change of prior right upper lobectomy. Mild emphysema most promine nt at the superior segment of the right lower lobe. There is some chronic scarring with reticular pat tern along the anterolateral right midlung either side of the minor fissure. Additional more reticulo nodular pattern of opacities at the posterior basilar right lower lobe which is more suspicious for p neumonia. Moderate-sized left pleural effusion with compressive atelectasis at the basilar left lower lobe and lingula. Again seen is an infiltrating mass at the superior left mediastinum which contacts without intervenin g fat plane the aortic arch and surrounds the left mainstem bronchus which appears mildly narrowed wi th lingular margins suggesting possible mural invasion. This mass which have significantly decreased in size from the most recent CT of 08/22/2023 when compared with earlier CT dated 05/24/2023 has since significantly increased in size, still smaller than at the time of the earlier study. For reference 9 .5 cm AP by 7.0 cm medial collateral compared with 5.3 x 5.4 cm on the most recent study and 12.3 x 8 .9 cm on the earlier study. Similarly there has been progression of nodular likely metastatic pleural thickening along the periphery of the left lung and along the left major fissure. Heart size is normal. Atherosclerotic coronary artery calcific lesion. No pericardial effusion. There does however appear to be infiltration of the mediastinal mass across the pericardium into the peric ardial fat near the pulmonary outflow tract and right atrial appendage. Thoracic aorta is normal in c aliber with no dissection. Interval increase in size of multiple lymph nodes in the left paracardial fat pad as well as multiple predominantly gastrohepatic upper abdominal lymph nodes consistent with p rogression metastatic disease. Similarly there are now numerous hypodense masses diffusely throughout the liver also consistent with progression of metastatic disease. 1.7 cm cyst at the upper pole of t he right kidney. Mild thoracic spondylosis. No suspicious lytic or blastic bone lesions to suggest os seous metastatic disease. IMPRESSION: 1. No pulmonary embolism. 2. Significant interval progression of infiltrating left anterior mediastinal mass which mildly narro ws and likely invades the left main pulmonary artery as well as the pericardium. Additionally there i s been progression of nodular pleural thickening throughout the left hemithorax, numerous masses thro ughout the liver and lymphadenopathy in the lower chest and upper abdomen all consistent with progres dwayne of known metastatic lung cancer. 3. Persistent moderate-sized left pleural effusion with compressive atelectasis in the left lower ken g. 4. Mild emphysema most prominent in the right lower lobe. 5. Reticulonodular pattern in the posterior right lower lobe which could represent atelectasis, pulmo nary edema, pneumonia, chronic interstitial lung disease or some combination thereof. Reviewed, dictated and finalized at location A. IMPRESSION: 1. No pulmonary embolism. 2. Significant interval progression of infiltrating left anterior mediastinal m ass which mi
[2023-09-22 15:59] VITALS: BP 184/119; PULSE 64; RESP 16; TEMP 36.6; O2SAT 99
--- NOTE | 2023-09-22 16:08 | ECG_ITS ---
SEE SCANNED COPY FOR CONFIRMED REPORT MTDD
[2023-09-22 16:46] LABS: Basophils Percent Auto 0.1 % (0.2-1.2); Hematocrit 36.3 % (42.0-52.0); Hemoglobin 11.9 g/dL (14.0-18.0); Immature Granulocyte Absolute 0.06 K/mm3 (0.00-0.031); Immature Granulocyte Percent A 0.5 % (0-0.5); Lymphocytes Absolute Auto 0.45 K/mm3 (0.9-3.2); Lymphocytes Percent Auto 3.6 % (18.3-44.2); Mean Corpuscular HGB Conc 32.8 g/dl (32-36); Mean Corpuscular Hemoglobin 29.8 pg (26-34); Mean Corpuscular Volume 90.8 fl (80-100); Neutrophils Percent Auto 87.8 % (45.5-73.1); Platelet Count Result 147 k/mm3 (150-375); Red Cell Distribution Width 16.7 % (11.5-14.5); White Blood Count 12.5 K/mm3 (4.5-10.0)
[2023-09-22 16:58] LABS: Alanine Aminotransferase 66 U/L (6-50); Albumin Level 3.7 g/dL (3.5-5.1); Alkaline Phosphatase 150 U/L (38-126); Anion Gap 7 mmol/L (4-12); Aspartate Amino Transferase 53 U/L (17-59); Bilirubin,Total 0.8 mg/dL (0.2-1.3); Blood Urea Nitrogen 15 mg/dL (9-20); Calcium 8.1 mg/dL (8.4-10.2); Carbon Dioxide 20 mmol/L (22-30); Chloride 99 mmol/L (98-107); Estimated CRCL calculation 168 ml/min; Estimated Glomerular Filt Rate > 60; Glucose 102 mg/dL (65-110); INR 1.1; Lipase 134 U/L (23-300); Potassium 4.2 mmol/L (3.4-5.0); Prothrombin Time 14.8 Seconds (11.1-14.7); Sodium 126 mmol/L (137-145)
[2023-09-22 16:59] LABS: Partial Thromboplastin Time 31.5 Seconds (22.3-36.8)
[2023-09-22 17:09] LABS: Troponin I < 0.012 ng/mL (0.000-0.034)
[2023-09-22 18:03] VITALS: BP 143/92; PULSE 60; RESP 16; O2SAT 97
--- NOTE | 2023-09-22 18:06 | ED.CHESTPAIN ---
HPI - Chest Pain General Chief Complaint: Chest Pain Stated Complaint: cp, sob Time Seen by Provider: 09/22/23 16:54 Source: patient Mode of arrival: ambulatory Limitations: no limitations History of Present Illness HPI narrative: This is a 63-year-old male with stage IV lung cancer who presents with acute on chronic chest pain and shortness of breath which has been occurring for the past several weeks but worsening recently. He presented from Dr. Rodgers's (heme/onc) office today who was concerned about his symptoms. He is status post 10 treatments of radiation and 13 rounds of chemo for the left-sided cancer and will soon start maintenance chemo every 3 weeks. patient previously had a pneumonia and similar symptoms requiring thoracentesis draining 2.5 L of fluid on the left side. This was performed at [facility] in [place] in May 2023. Patient previously had right sided lung cancer for which he had resection of the superior lobe. Also had radiation for tumor around left ribs. He is a former smoker. He has been having orthopnea and has noticed increased swelling in his bilateral lower extremities and attributes this to being out of his Lasix 40 mg b.i.d. for a few days given issues with [facility] pharmacy. patient last saw a chief design branch approximately 10 years ago and does not follow with 1 routinely. No history of pulmonary embolism. he also feels that his left upper extremity is freezing cold but denies any paresthesias. Related Data Home Medications Medication Instructions Recorded Confirmed hydrocodone 5 mg-acetaminophen 325 1 tablet PO Q8H PRN Breakthrough 05/24/23 09/13/23 mg tablet Pain, Moderate cyanocobalamin (vitamin B-12) 1,000 mcg PO DAILY 06/15/23 09/13/23 1,000 mcg tablet gabapentin 300 mg tablet 300 mg PO BID 06/15/23 09/13/23 loperamide 2 mg tablet 2 mg PO QID PRN Diarrhea 06/15/23 09/13/23 polyethylene glycol 3350 17 gram 17 g PO DAILY 06/15/23 09/13/23 oral powder packet (Miralax) potassium chloride 10 mEq 10 meq PO DAILY 06/15/23 09/13/23 capsule,extended release Allergies Allergy/AdvReac Type Severity Reaction Status Date / Time No Known Allergies Allergy Verified 09/13/23 14:20 [facility] Past Medical History Medical History Chronic obstructive pulmonary disease Colon polyps Degenerative joint disease Gastroesophageal reflux disease Hyperlipidemia Non-small cell carcinoma of lung Arising in the right upper lobe status post lobectomy in June 2019. Pleural effusion on left May 2023; s/p thoracentesis at [facility]) Rhabdomyolysis Small cell lung cancer PET scan in 04/2023 showed evidence of distant metastases involving the abdominal lymph nodes, liver, and bones. Tobacco dependence Surgical History Surgical History History of back surgery History of colonoscopy with polypectomy History of hernia repair History of lobectomy of lung (06/2019) Right upper lobectomy per Dr. Lee ([facility]). History of surgery on arm History of thoracentesis May 2023; 2.5L drained by [facility] ([facility]) Family History Family History Sibling Acute myocardial infarction, Onset Age: 60 Family history of respiratory disorder Mother Family history of emphysema Father Mesothelioma Social History Social History Social History: Surrogate medical decision maker: Corrine Coffman, niece. Code status: Full code. Smoking packs per day: 1 Smoking cigarettes per day: 20.0 Years smoked: 50 Smoking pack-years: 50.00 Smoking status: Former smoker Second hand tobacco smoke exposure: Yes Alcohol intake: never Substance use: never Substance use type: does not use Do You Feel Safe in your Home?: Yes Lack of Transpor
[2023-09-22 18:33] LABS: D Dimer 3.32 ug/mL (<0.48)
[2023-09-22 18:36] LABS: NT Pro B Type Natriuretic Pept 384 pg/mL (19.9-100)
[2023-09-22] MEDS: MORPHINE SULFATE (*CRX) 4 MG/ML INJ IV PUSH (19:10)
[2023-09-22 19:13] VITALS: BP 152/94; PULSE 72; RESP 16; O2SAT 98
[2023-09-22 20:50] LABS: Lactate Dehydrogenase 269 U/L (120-246)
[2023-09-22] MEDS: HEPARIN SODIUM LOCK FLUSH 500 UNITS/5 ML SYRINGE IV PUSH (21:15)
--- NOTE | 2023-09-23 11:18 | PCCARD ---
PATIENT LEFT AMA - 3 HOUR EKG WAS NOT DONE
== END 2023-09-22 21:39 | disposition left against medical advice (07) ==
PROVIDERS: Student in an Organized Health Care Education/Training Program; Emergency Provider Student in an Organized Health Care Education/Training Program; PCP Internal Medicine Hematology & Oncology
DX: J90 Pleural effusion, not elsewhere classified (principal); R06.02 Shortness of breath; R07.9 Chest pain, unspecified; D72.829 Elevated white blood cell count, unspecified; D64.9 Anemia, unspecified; E87.1 Hypo-osmolality and hyponatremia; J98.59 Other diseases of mediastinum, not elsewhere classified; I45.10 Unspecified right bundle-branch block; C34.92 Malignant neoplasm of unspecified part of left bronchus or lung; C34.91 Malignant neoplasm of unspecified part of right bronchus or lung; C78.7 Secondary malignant neoplasm of liver and intrahepatic bile duct; C77.2 Secondary and unspecified malignant neoplasm of intra-abdominal lymph nodes; J44.9 Chronic obstructive pulmonary disease, unspecified; Z86.010 Personal history of colon polyps; K21.9 Gastro-esophageal reflux disease without esophagitis; E78.5 Hyperlipidemia, unspecified; Z90.2 Acquired absence of lung [part of]; J43.9 Emphysema, unspecified; Z87.01 Personal history of pneumonia (recurrent); Z87.891 Personal history of nicotine dependence; Z92.3 Personal history of irradiation; Z79.60 Long term (current) use of unspecified immunomodulators and immunosuppressants
CPT/HCPCS: 36415; 71045; 71275; 80053; 83615; 83690; 83880; 84484; 85025; 85380; 85610; 85730; 93005; 96374; 99284; J2270; Q9967

== ENCOUNTER 2023-09-23 06:43 | Emergency (ER) | payer OTHER, SELFPAY ==
[2023-09-23] VITALS (30 sets, daily range): BP systolic 148–169; BP diastolic 92–113; PULSE 62–83; RESP 12–31; TEMP 36.4; O2SAT 88–100
--- NOTE | ~2023-09-23 | XR_ITS ---
EXAMINATION: [id number] DATE: 09/23/2023 10:37 INDICATION: Left pleural effusion status post thoracentesis. TECHNIQUE: Frontal and lateral views of the chest were obtained. COMPARISON: Chest single view 09/22/23, chest CT 09/22/2023 FINDINGS: There is a moderate-sized loculated left pleural effusion with nodular pleural thickening. There is a left hilar mass. There are airspace opacities at left lung base, likely atelectasis. Again seen are airspace opacities in right lower lung zone, likely pneumonia. No pneumothorax. The heart s ize is normal. There is a right subclavian port with tip in superior vena cava. IMPRESSION: 1. Moderate-sized loculated left pleural effusion with nodular pleural thickening, consistent with ma lignant effusion with improvement status post thoracentesis. 2. Left hilar mass, consistent with malignancy. 3. Stable mild pneumonia in right lower lung zone. Reviewed, dictated and finalized at location A. IMPRESSION: 1. Moderate-sized loculated left pleural effusion with nodular pleural thickeni ng, consistent with malignant effusion with improvement status post thoracentes is. 2. Left hilar mass, consistent with malignancy. 3. Stable mild pneumonia in right lower lung zone.
--- NOTE | ~2023-09-23 | US_ITS ---
EXAMINATION: US thoracentesis DATE: 09/23/2023 10:33 INDICATION: pleural effusion TECHNIQUE: The procedure and its risks, benefits, and alternatives were discussed with the patient. P otential risks discussed included bleeding, infection, and pneumothorax. The patient understood the r isks and agreed to proceed. The skin was prepped and draped in sterile fashion. 1% lidocaine was used for local anesthesia. Under ultrasound guidance, a 5 Fr catheter with trochar was advanced into the left pleural effusion. Fluid was aspirated. The catheter was removed, and a dressing was applied. The re were no immediate complications. FINDINGS: Ultrasound images demonstrate a left pleural effusion and the catheter within the fluid. IMPRESSION: 1. Successful ultrasound-guided thoracentesis yielding 1000 mL of keith-colored fluid. Reviewed, dictated and finalized at location A. IMPRESSION: 1. Successful ultrasound-guided thoracentesis yielding 1000 mL of kieth-colore d fluid.
--- NOTE | 2023-09-23 06:44 | ECG_ITS ---
SEE SCANNED COPY FOR CONFIRMED REPORT MTDD
[2023-09-23 06:58] LABS: Basophils Percent Auto 0.1 % (0.2-1.2); Eosinophils Percent Auto 0.1 % (0-4.4); Hematocrit 39.3 % (42.0-52.0); Hemoglobin 12.8 g/dL (14.0-18.0); Immature Granulocyte Absolute 0.04 K/mm3 (0.00-0.031); Immature Granulocyte Percent A 0.3 % (0-0.5); Lymphocytes Absolute Auto 0.39 K/mm3 (0.9-3.2); Lymphocytes Percent Auto 2.5 % (18.3-44.2); Mean Corpuscular HGB Conc 32.6 g/dl (32-36); Mean Corpuscular Hemoglobin 29.8 pg (26-34); Mean Corpuscular Volume 91.6 fl (80-100); Mean Platelet Volume 8.1 fl (7.4-10.4); Monocytes Absolute Auto 1.3 K/mm3 (0.1-0.6); Monocytes Percent Auto 8.4 % (2.6-8.5); Neutrophils Absolute Auto 13.7 K/mm3 (1.3-6.7); Neutrophils Percent Auto 88.6 % (45.5-73.1); Platelet Count Result 191 k/mm3 (150-375); Red Blood Count 4.29 M/mm3 (4.6-6.20); White Blood Count 15.4 K/mm3 (4.5-10.0)
[2023-09-23 07:07] LABS: Alanine Aminotransferase 69 U/L (6-50); Alkaline Phosphatase 187 U/L (38-126); Anion Gap 7 mmol/L (4-12); Aspartate Amino Transferase 61 U/L (17-59); Bilirubin,Total 0.7 mg/dL (0.2-1.3); Blood Urea Nitrogen 18 mg/dL (9-20); Calcium 8.2 mg/dL (8.4-10.2); Carbon Dioxide 20 mmol/L (22-30); Chloride 101 mmol/L (98-107); Estimated CRCL calculation 138 ml/min; Estimated Glomerular Filt Rate > 60; Glucose 123 mg/dL (65-110); Potassium 4.3 mmol/L (3.4-5.0); Sodium 128 mmol/L (137-145)
[2023-09-23] MEDS: MORPHINE SULFATE (*CRX) 4 MG/ML INJ IV PUSH (07:21)
--- NOTE | 2023-09-23 12:33 | ED.SOB ---
HPI - SOB/Dyspnea General Chief Complaint: Shortness of Breath/Dyspnea Stated Complaint: difficulty breathing, chest pain Time Seen by Provider: 09/23/23 06:59 Source: patient Mode of arrival: ambulatory Limitations: no limitations History of Present Illness HPI Narrative: 63-year-old with metastatic lung cancer with recurrent pleural effusion here with complaints of shortness of breath for past few days. Patient was seen last night here in the ER was recommended for admission last night for thoracentesis however patient decided to go home comes in this morning with shortness of breath and dull pain on the left side radiating into his left arm. He denies any cough or fever or chills. He is under the care of for his lung cancer. MD elicited complaint: shortness of breath Pertinent past history: other (Recurrent pleural effusion secondary to his lung cancer) Onset (ago): week(s) Timing: constant Severity: moderate Exacerbating factors: lying flat Relieving factors: nothing Known history of: other (Lung cancer, recurrent malignant effusion) Associated symptoms: chest pain Treatment prior to arrival: none Related Data Home Medications Medication Instructions Recorded Confirmed hydrocodone 5 mg-acetaminophen 325 1 tablet PO Q8H PRN Breakthrough 05/24/23 09/13/23 mg tablet Pain, Moderate cyanocobalamin (vitamin B-12) 1,000 mcg PO DAILY 06/15/23 09/13/23 1,000 mcg tablet gabapentin 300 mg tablet 300 mg PO BID 06/15/23 09/13/23 loperamide 2 mg tablet 2 mg PO QID PRN Diarrhea 06/15/23 09/13/23 polyethylene glycol 3350 17 gram 17 g PO DAILY 06/15/23 09/13/23 oral powder packet (Miralax) potassium chloride 10 mEq 10 meq PO DAILY 06/15/23 09/13/23 capsule,extended release Allergies Allergy/AdvReac Type Severity Reaction Status Date / Time No Known Allergies Allergy Verified 09/13/23 14:20 Review of Systems Review of Systems: All systems reviewed & are unremarkable except as noted in HPI and below Constitutional: Constitutional: Reports no additional constitutional complaints Eyes: Eyes: Reports no additional eye complaints ENT: Reports system reviewed and no additional complaints, except as documented Cardiovascular: Cardiovascular: Reports no additional cardiovascular complaints Respiratory: Respiratory: Reports as per HPI Gastrointestinal: Gastrointestinal: Reports no additional gastrointestinal complaints Musculoskeletal: Musculoskeletal: Reports no additional musculoskeletal complaints Integumentary/Breasts: Skin/Breast: Reports system reviewed and no additional complaints, except as docu Neurologic: Reports system reviewed and no additional complaints, except as documented Psychiatric: Psychiatric: Reports no additional psychiatric complaints PMFSH Past Medical History Medical History Chronic obstructive pulmonary disease Colon polyps Degenerative joint disease Gastroesophageal reflux disease Hyperlipidemia Non-small cell carcinoma of lung Arising in the right upper lobe status post lobectomy in June 2019. Pleural effusion on left May 2023; s/p thoracentesis at [facility]) Rhabdomyolysis Small cell lung cancer PET scan in 04/2023 showed evidence of distant metastases involving the abdominal lymph nodes, liver, and bones. Tobacco dependence Surgical History Surgical History History of back surgery History of colonoscopy with polypectomy History of hernia repair History of lobectomy of lung (06/2019) Right upper lobectomy per Dr. Lee ([facility] History of surgery on arm History of thoracentesis May 2023; 2.5L drained by report ([facility]) Family History Family History Sibling Acute myocardial infarction, Onset Age: 60 Family history of respiratory disorder Mother Family history of emphys
== END 2023-09-23 12:55 | disposition home or self-care (01) ==
PROVIDERS: Emergency Medicine; Emergency Provider Family Medicine; PCP Internal Medicine Hematology & Oncology
DX: J91.0 Malignant pleural effusion (principal); Z85.118 Personal history of other malignant neoplasm of bronchus and lung; J44.9 Chronic obstructive pulmonary disease, unspecified; K21.9 Gastro-esophageal reflux disease without esophagitis; E78.5 Hyperlipidemia, unspecified; Z87.891 Personal history of nicotine dependence
CPT/HCPCS: 32555; 36415; 80053; 85025; 93005; 96374; 99284; J2270

== ENCOUNTER 2023-10-09 14:15 | Inpatient (IN) | payer OTHER, SELFPAY ==
[2023-10-09] VITALS (55 sets, daily range): BP systolic 88–133; BP diastolic 62–97; PULSE 65–170; RESP 17–33; TEMP 36.1–37.2; O2SAT 89–100; BMI 25.9
--- NOTE | ~2023-10-09 | XR_ITS ---
Portable chest x-ray Comparison: 10/13/2023 Clinical History: Lung cancer, left effusion Findings: Right-sided Mediport in place. Small left pleural effusion present with left basilar airsp magdy disease. Right lung clear. Cardiomediastinal silhouette is stable. Medial left upper lobe mass a gain present. Bones and soft tissues are unremarkable. Impression: Small left pleural effusion with nonspecific left basilar airspace disease. Stable medial left upper lobe mass, compatible with lung cancer. Right-sided Mediport. Reviewed, dictated and finalized at location . Impression: Small left pleural effusion with nonspecific left basilar airspace disease. Stable medial left upper lobe mass, compatible with lung cancer. Right-sided Mediport.
--- NOTE | ~2023-10-09 | XR_ITS ---
Portable chest x-ray Comparison: 09/22/2023 Clinical History: Shortness of breath Findings: Right-sided Mediport in place. There is probable left suprahilar/left upper lobe mass medi ally. Minimal haziness in the bilateral lung bases is nonspecific. Small left pleural effusion again present. Possible left basilar chest tube. Cardiomediastinal silhouette is stable. Bones and soft ti ssues are unremarkable. Impression: Small left pleural effusion with probable mild bibasilar pulmonary edema. Stable probable left suprahilar/left upper lobe mass. Right-sided Mediport. Reviewed, dictated and finalized at location . Impression: Small left pleural effusion with probable mild bibasilar pulmonary edema. Stable probable left suprahilar/left upper lobe mass. Right-sided Mediport.
--- NOTE | ~2023-10-09 | XR_ITS ---
XR chest 1V portable 10/13/2023 10:49 Indication: Left pleural effusion Procedure: AP portable chest Comparison: Comparison to multiple prior studies sequentially, with oldest reviewed study dated 05/25. Findings: There is a thoracostomy catheter in the left lower thorax. There is a luda catheter tip in the SVC. There is diffuse bilateral airspace disease. There is a left hilar mass. There is a left pl eural effusion, moderate. No pneumothorax. There are changes of partial right pneumonectomy. Impression: 1: Diffuse bilateral airspace disease which may represent pneumonia or edema. 2: Moderate left pleural effusion, possibly loculated. Drainage catheter overlies the left lower tho rax. 3: Left hilar mass, suspicious for malignancy. Reviewed, dictated and finalized at location B. Impression: 1: Diffuse bilateral airspace disease which may represent pneumonia or edema. 2: Moderate left pleural effusion, possibly loculated. Drainage catheter overl ies the left lower thorax. 3: Left hilar mass, suspicious for malignancy.
--- NOTE | ~2023-10-09 | XR_ITS ---
Portable chest x-ray Comparison: 10/09/2023 Clinical History: Lung cancer Findings: Right-sided Mediport in place. Moderate left pleural effusion is present, increased from p rior exam. There is extensive hazy and interstitial pulmonary disease. Stable mass at the left suprah ilar/hilar region. Cardiomediastinal silhouette is stable. Bones and soft tissues are unremarkable. Impression: Moderate left pleural effusion is increased from prior exam. Stable mass at the left hilar/suprahilar region, consistent with history of lung cancer. Extensive hazy and interstitial pulmonary disease. Correlate for pulmonary edema and/or chronic inter stitial disease. Reviewed, dictated and finalized at location M. Impression: Moderate left pleural effusion is increased from prior exam. Stable mass at the left hilar/suprahilar region, consistent with history of ken g cancer. Extensive hazy and interstitial pulmonary disease. Correlate for pulmonary verona a and/or chronic interstitial disease.
--- NOTE | ~2023-10-09 | US_ITS ---
Limited Abdominal Sonogram: Real-time sonographic imaging of the right upper quadrant was performed. Clinical History: Abdominal pain Findings: The liver is very nodular and appearance, with suggestion of innumerable masses throughout . Liver measures 19.6 cm in length. The gallbladder is well distended, and appears normal with no lorrie dence of gallstone or wall thickening. The common bile duct measures 3 mm. The visualized pancreas, aorta, and IVC are unremarkable. Impression: Hepatomegaly with markedly nodular appearance, and probable masses throughout the liver. Findings are highly suspicious for diffuse hepatic metastatic disease. Multiple dysplastic nodules of cirrhosis w ould be a potential alternative consideration, though this is felt to be less likely. Reviewed, dictated and finalized at location . Impression: Hepatomegaly with markedly nodular appearance, and probable masses throughout t he liver. Findings are highly suspicious for diffuse hepatic metastatic disease . Multiple dysplastic nodules of cirrhosis would be a potential alternative con sideration, though this is felt to be less likely.
--- NOTE | ~2023-10-09 | CT_ITS ---
Clinical Indication: Shortness of breath, transaminitis CT Scan of the Chest, Abdomen, and Pelvis with Contrast: Technique: Contiguous sections were acquired throughout the chest, abdomen, and pelvis after intraven ous administration of 100 cc of Omnipaque 350. Dose reduction technique was used on this scan by uti lizing automated exposure control and iterative reconstruction technique. The dose-length product (DL P) was 1616.29 mGy-cm. COMPARISON: 09/22/2023, 08/22/2023 Findings: No large central pulmonary embolus seen. Motion artifact limits evaluation for more peripheral pulmon viviana emboli especially the right lower lobe region. No aortic aneurysm or dissection. Small left pleural effusion present. No right pleural effusion or pericardial effusion. There is stable large lobulated/irregular mass in the anteromedial left upper lobe with direct invasi on into the mediastinum/left hilum, with extensive encasement and narrowing of the left main pulmonar y artery and left upper lobe pulmonary artery branches. There is probable subcarinal lymphadenopathy. There is additional extension of the mass into the anterior mediastinum. There is probable mildly pr ogressing enlarging inferior epicardial lymph nodes on the left side (axial image 197 for example). T here is probable worsening pleural-based metastatic disease, a dominant pleural-based lesion at the l eft upper lobe region measuring 3.8 x 1.9 cm (axial image 100). There are multiple probable additiona l subcentimeter left basilar pulmonary nodules present. Status post right upper lobectomy. Mild to moderate emphysema present. There is patchy airspace disea se the right lung base, which could reflect atelectatic change or pneumonia. There are numeral moderate to large and somewhat confluent masses throughout the liver, compatible wi th diffuse hepatic metastatic disease, probably similar to most recent prior exam. There are bilatera l adrenal nodules, probably mildly enlarged from prior exam, compatible with worsening metastatic dis ease. Probable enlarged peripancreatic lymph node adjacent to the pancreatic tail. There is carcinoma tosis or leonard metastases in the left midabdomen. Mildly prominent aortocaval lymph nodes are present , suspicious for metastatic disease. The spleen, pancreas, gallbladder, adrenals and kidneys are with in normal limits. No evidence of aortic aneurysm. No lymphadenopathy. No bowel obstruction or bowel wall thickening. There is no evidence to suggest acute appendicitis. Urinary bladder is unremarkable. Prostate gland unremarkable. Trace ascites present. Impression: No definite pulmonary embolus seen. There is suboptimal evaluation particularly right lower lobe/marques pherally due to motion artifact. Large lobulated left upper lobe mass with direct extension to the mediastinum and left hilum is is si milar to prior exam. This is most compatible bronchogenic carcinoma. Extensive metastatic disease is also similar to minimally progressed from prior exam, including media stinal lymphadenopathy, left hemithorax pleural-based metastatic disease, probable subcentimeter left lung pulmonary nodules, and abdominal pelvic lymphadenopathy and peritoneal carcinomatosis or mesent clive leonard implants. There is also mildly progressive metastatic epicardial leonard disease. Bilateral adrenal lesions are mildly enlarged, suspicious for mildly progressive metastatic disease. Diffuse he patic metastatic disease is similar to prior exam. Small left pleural effusion, improved from prior exam. Suspected right basilar pneumonia. Moderate emphysema. Reviewed, dictated and finalized at [facility]. Impression: No definite pulmonary embolus seen. There is suboptimal evaluation particularly right lower lobe/peripherally d
--- NOTE | 2023-10-09 14:22 | ECG_ITS ---
Test Date: 2023-10-09 19:18:08 Measurements Intervals [place] Rate: 188 P: 0 AL: 0 QRS: 185 QRSD: 86 T: -4 QT: 227 QTc: 401 Interpretive Statements ATRIAL FIBRILLATION WITH RAPID VENTRICULAR RESPONSE POSSIBLE RIGHT VENTRICULAR HYPERTROPHY [SOME/ALL OF: PROMINENT R IN V1, LATE TRANSITION, RAD, ASHLEY, SSS] Compared to ECG 10/09/2023 14:22:22 ATRIAL FIBRILLATION WITH RVR NOW PRESENT Electronically Signed On 10-11-2023 10:42:39 CDT by Clotilde Joe M.D.
[2023-10-09 14:39] LABS: Alveolar/Arterial O2 Gradient 58.3 mmHg; Base Excess ABG 3.5 mEq/l (+/-2.0); Fractional Inspired Oxygen 21 %; HCO3 ABG 24.6 mEq/l (22.0-26.0); Oxygen Content ABG 19.5 %vol (16.0-22.0); Oxygen Saturation ABG 93.6 % (95.0-100.0); Oxyhemoglobin 89.5 % THb (90.0-100.0); PCO2 ABG 28.2 mmHg (35.0-45.0); PO2 ABG 57.7 mmHg (80.0-100.0); PO2 FiO2 Ratio Arterial Blood 2.75 %; Total Hemoglobin 15.5 g/dL (12.0-18.0)
[2023-10-09 14:41] LABS: Device ROOM AIR; Modified Allen's Test Pass; Site Drawn RIGHT RADIAL; pH ABG 7.558 (7.350-7.450)
--- NOTE | 2023-10-09 14:45 | ED.SOB ---
HPI - SOB/Dyspnea General Chief Complaint: Shortness of Breath/Dyspnea Stated Complaint: RESPIRATORY DISTRESS Time Seen by Provider: 10/09/23 14:23 History of Present Illness HPI Narrative: patient is a 63-year-old male who presents ER with shortness of breath. Sudden onset after having his pleural effusion drained. No chest pain or chest pressure. Denies fevers chills. Has difficulty giving history due to his distress. He has coarse rales bilaterally. Patient has metastatic lung cancer. He has missed the chemo treatment due to debility. He has had targeted radiation at the mass that is infiltrating his pulmonary artery. Related Data Home Medications Medication Instructions Recorded Confirmed hydrocodone 5 mg-acetaminophen 325 1 tablet PO Q8H PRN Breakthrough 05/24/23 09/13/23 mg tablet Pain, Moderate cyanocobalamin (vitamin B-12) 1,000 mcg PO DAILY 06/15/23 09/13/23 1,000 mcg tablet gabapentin 300 mg tablet 300 mg PO BID 06/15/23 09/13/23 loperamide 2 mg tablet 2 mg PO QID PRN Diarrhea 06/15/23 09/13/23 polyethylene glycol 3350 17 gram 17 g PO DAILY 06/15/23 09/13/23 oral powder packet (Miralax) potassium chloride 10 mEq 10 meq PO DAILY 06/15/23 09/13/23 capsule,extended release Allergies Allergy/AdvReac Type Severity Reaction Status Date / Time No Known Allergies Allergy Verified 09/13/23 14:20 Review of Systems Review of Systems: ROS unobtainable: Yes unobtainable due to medical condition PMFSH Past Medical History Medical History Chronic obstructive pulmonary disease Colon polyps Degenerative joint disease Gastroesophageal reflux disease Hyperlipidemia Non-small cell carcinoma of lung Arising in the right upper lobe status post lobectomy in June 2019. Pleural effusion on left May 2023; s/p thoracentesis at [facility] ([place]) Rhabdomyolysis Small cell lung cancer PET scan in 04/2023 showed evidence of distant metastases involving the abdominal lymph nodes, liver, and bones. Tobacco dependence Surgical History Surgical History History of back surgery History of colonoscopy with polypectomy History of hernia repair History of lobectomy of lung (06/2019) Right upper lobectomy per Dr. Lee ([facility]). History of surgery on arm History of thoracentesis May 2023; 2.5L drained by report ([facility]) Family History Family History Sibling Acute myocardial infarction, Onset Age: 60 Family history of respiratory disorder Mother Family history of emphysema Father Mesothelioma Social History Social History Social History: Surrogate medical decision maker: Corrine Coffman, niece. Code status: Full code. Smoking packs per day: 1 Smoking cigarettes per day: 20.0 Years smoked: 50 Smoking pack-years: 50.00 Smoking status: Former smoker Second hand tobacco smoke exposure: Yes Alcohol intake: never Substance use: never Substance use type: does not use Do You Feel Safe in your Home?: Yes Lack of Transportation: No Lack of Food: Never True Current Housing: I Have Housing Concerned About Future Housing: No Difficulty Paying Gas/Electric Bills: No Difficulty Paying for Meds: No Currently Unemployed: No Education: Decline to Answer Difficulty w/ Childcare or Family Care: No Living arrangements: with family Additional living arrangements comments: . Has 16 year-old daughter. 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 Spiritual care concerns: No Exam Narrative: GENERAL: Chronically ill-appearing, well-nourished, and in moderatedistress. HEAD: Normocephalic, atraumatic. EYES: PERRL and EOMI. ENT: Mucous membranes moist. CHEST: Coarse
[2023-10-09] MEDS: IPRATROPIUM BR 0.02% INH SOLN 0.5 MG/2.5 ML VIAL 1.5 MG INHALATION (14:49)
[2023-10-09] MEDS: ALBUTEROL SULFATE NEB 2.5 MG/3 ML INH 15 MG INHALATION (14:49)
[2023-10-09 15:06] LABS: Basophils Percent Auto 0.1 % (0.2-1.2); Hematocrit 46.8 % (42.0-52.0); Hemoglobin 14.8 g/dL (14.0-18.0); Immature Granulocyte Absolute 0.08 K/mm3 (0.00-0.031); Immature Granulocyte Percent A 0.5 % (0-0.5); Lymphocytes Absolute Auto 0.32 K/mm3 (0.9-3.2); Lymphocytes Percent Auto 2.1 % (18.3-44.2); Mean Corpuscular HGB Conc 31.6 g/dl (32-36); Mean Corpuscular Hemoglobin 30.1 pg (26-34); Mean Corpuscular Volume 95.1 fl (80-100); Mean Platelet Volume 9.7 fl (7.4-10.4); Monocytes Absolute Auto 0.9 K/mm3 (0.1-0.6); Neutrophils Absolute Auto 13.6 K/mm3 (1.3-6.7); Neutrophils Percent Auto 91.3 % (45.5-73.1); Nucleated Red Blood Cells Perc 0.3 % (0.0-0.2); Platelet Count Result 103 k/mm3 (150-375); Red Blood Count 4.92 M/mm3 (4.6-6.20); Red Cell Distribution Width 19.1 % (11.5-14.5); White Blood Count 14.9 K/mm3 (4.5-10.0)
[2023-10-09 15:14] LABS: Lactic Acid Reflex 3.5 mmol/L (0.7-2.0)
[2023-10-09 15:15] LABS: Alanine Aminotransferase 232 U/L (6-50); Albumin Level 2.9 g/dL (3.5-5.1); Alkaline Phosphatase 336 U/L (38-126); Anion Gap 5 mmol/L (4-12); Aspartate Amino Transferase 240 U/L (17-59); Bilirubin,Total 2.5 mg/dL (0.2-1.3); Blood Urea Nitrogen 41 mg/dL (9-20); Carbon Dioxide 31 mmol/L (22-30); Chloride 109 mmol/L (98-107); Estimated CRCL calculation 73 ml/min; Estimated Glomerular Filt Rate > 60; Glucose 117 mg/dL (65-110); Potassium 3.1 mmol/L (3.4-5.0); Sodium 145 mmol/L (137-145)
[2023-10-09 15:18] LABS: INR 1.2; Prothrombin Time 15.3 Seconds (11.1-14.7)
[2023-10-09 15:19] LABS: Partial Thromboplastin Time 26.3 Seconds (22.3-36.8)
[2023-10-09 15:32] LABS: NT Pro B Type Natriuretic Pept 2450 pg/mL (19.9-100); Troponin I 0.079 ng/mL (0.000-0.034)
[2023-10-09 18:03] LABS: Reflex Lactic Acid Yes or No Add Lactic
[2023-10-09 18:35] LABS: Lactic Acid 3.1 mmol/L (0.7-2.0)
[2023-10-09] MEDS: AZITHROMYCIN 500 MG/NS 250 ML 500 MG/250 ML BAG 250 MG IVPB (19:00)
--- NOTE | 2023-10-09 19:06 | ECG_ITS ---
[facility] [address] Test Date: 2023-10-09 Pat Name: Edmar Harden Department: Room: 212 Gender: M It Technical Architect: : [id number] Requested By: Conner Steele Order Number: [id number] Gonzales MD: Silvio Stephen M.D. Measurements Intervals [place] Rate: 122 P: 2 [place]: 215 QRS: -4 QRSD: 92 T: 93 QT: 337 QTc: 481 Interpretive Statements SINUS TACHYCARDIA WITH PVC AND PAC NONSPECIFIC T-WAVE ABNORMALITY No previous ECG available for comparison Electronically Signed On 10-10-2023 08:03:05 CDT by Silvio Stephen M.D.
[2023-10-09] MEDS: AMIODARONE 150 MG/D5W 100 ML 150 MG/100 ML BAG 600 MG IV CONT ×2 (19:24→22:20)
[2023-10-09] MEDS: AMIODARONE 360 MG/D5W 200 ML 360 MG/200 ML BAG 33.33 MG IV CONT (19:37)
--- NOTE | 2023-10-09 20:40 | ADMGEN ---
This patient, Edmar Harden, was admitted to IMU Room 212-01 at 2039. Patient/family oriented to hospital policies and general routines including ID bracelet, bed and alarms, visiting hours, pain management, procedures, bathroom and other care routines, personal items, smoking policy, room service/diet, and visiting hours. Information on how to activate the Rapid Response Team has been discussed. Patient/Family are encouraged to report perceived risks to care and to ask questions if they do not understand what they are told or what they should do.
--- NOTE | 2023-10-09 21:05 | PM.IMHP ---
H&P: HPI History of Present Illness Date/Time: 10/09/23 21:05 Chief Complaint: Admitted with worsening shortness of breath after thoracentesis today Narrative: He is a very unfortunate 63 years old white male with metastatic lung cancer infiltrating his pulmonary artery with recurrent pleural effusions. He came to the ER for evaluation with worsening shortness of breath after having his pleural effusion drained today. He denies any chest pain, chest pressure, fevers or chills. He had difficulty speaking due to his worsening shortness of breath. CT scan of the chest done which confirmed extensive metastatic liver disease as well as right lower lobe pneumonia. pateint was started on BiPAP and IV antibiotics initiated. Patient also had KAT hence 1 L IV hydration given. Patient went into AFib with RVR with heart rate as high as 188. At that time he had worsening tachypnea, diaphoresis and respiratory distress. Patient was started on IV amiodarone bolus followed by IV amiodarone drip and is being admitted to IMU. He is DNR/DNI but not ready for hospice at this time. Review of Systems Review of Systems: Unable to be obtained. Patient is on BiPAP, feeling weak and tired ROS unobtainable: Yes unobtainable due to medical condition PMFSH Past Medical History Medical History (Updated 10/09/23 @ 21:34 by Jeff Michaud MD) Chronic obstructive pulmonary disease Colon polyps Degenerative joint disease DNR (do not resuscitate) Gastroesophageal reflux disease Hyperlipidemia Non-small cell carcinoma of lung Arising in the right upper lobe status post lobectomy in June 2019. Pleural effusion on left May 2023; s/p thoracentesis at [facility]) Rhabdomyolysis Small cell lung cancer PET scan in 04/2023 showed evidence of distant metastases involving the abdominal lymph nodes, liver, and bones. Tobacco dependence Surgical History Surgical History History of back surgery History of colonoscopy with polypectomy History of hernia repair History of lobectomy of lung (06/2019) Right upper lobectomy per Dr. Lee ([facility]). History of surgery on arm History of thoracentesis May 2023; [facility]) Family History Family History Sibling Acute myocardial infarction, Onset Age: 60 Family history of respiratory disorder Mother Family history of emphysema Father Mesothelioma Social History Social History Social History: Surrogate medical decision maker: Corrine Matttrung, niritika. Code status: Full code. Smoking packs per day: 1 Smoking cigarettes per day: 20.0 Years smoked: 50 Smoking pack-years: 50.00 Smoking status: Former smoker Tobacco type: cigarettes Second hand tobacco smoke exposure: Yes Smoking end date: 04/01/23 Alcohol intake: never Substance use: never Substance use type: does not use Do You Feel Safe in your Home?: Yes Lack of Transportation: No Lack of Food: Never True Current Housing: I Have Housing Concerned About Future Housing: No Difficulty Paying Gas/Electric Bills: No Difficulty Paying for Meds: No Currently Unemployed: No Education: Decline to Answer Difficulty w/ Childcare or Family Care: No Living arrangements: with family Additional living arrangements comments: . Has 16 year-old daughter. 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 Spiritual care concerns: No Meds Home Medications and Allergies Home Medications Medication Instructions Recorded Confirmed Type omeprazole 40 mg capsule,delayed 40 mg PO DAILY #90 caps 04/06/23 10/09/23 Rx release oxycodone 5 mg tablet 5 mg PO Q8H PRN pain #30 tabs 05/23/23 09/13/23 Rx hydrocodone 5 mg-acetaminophen 325 1 tablet PO Q8H PRN Breakt
[2023-10-09] MEDS: IPRATROPIUM BR 0.02% INH SOLN 0.5 MG/2.5 ML VIAL INHALATION (21:09)
[2023-10-09] MEDS: ALBUTEROL SULFATE NEB 2.5 MG/3 ML INH INHALATION (21:09)
[2023-10-09] MEDS: LORazepam INJ (*CRX) 2 MG/ML VIAL 0.5 MG IV PUSH (21:34)
--- NOTE | 2023-10-09 22:36 | PC.NURSE ---
[address] Michaud per elevated heart rate requested 2nd amiodarone bolus due to HR Afib in the 180's. Dr Michaud consents to amio bolus and requests this nurse call cardiology and see if they have recommendations.
--- NOTE | 2023-10-09 22:38 | PC.NURSE ---
[address] Smallwood; reviewed patients current condition, vitals, and lab work. One time dose of 0.50mg IV digoxin received and Dr SMALLWOOD ALSO REQUESTS TO NOT BE CALLED WITH ANY FURTHER HEART RATE ISSUES due to patients terminal condition.
[2023-10-09] MEDS: methylPREDNISolone SOD SUCC 125 MG VIAL 60 MG IV PUSH (23:14)
[2023-10-09] MEDS: DIGOXIN INJ 250 MCG/ML 2 ML AMP (*BKC) 500 MCG IV PUSH (23:14)
[2023-10-09] MEDS: SODIUM CHLORIDE 0.9% IV 1,000 ML 75 ML IV CONT (23:20)
[2023-10-10] VITALS (26 sets, daily range): BP systolic 88–121; BP diastolic 52–80; PULSE 62–159; RESP 20–24; TEMP 36.1–36.7; O2SAT 90–96; BMI 25.9
[2023-10-10 00:05] LABS: Lactic Acid Reflex 4.5 mmol/L (0.7-2.0)
[2023-10-10 00:20] LABS: Troponin I 0.079 ng/mL (0.000-0.034)
[2023-10-10] MEDS: AMIODARONE 360 MG/D5W 200 ML 360 MG/200 ML BAG 16.67 MG IV CONT (01:30)
[2023-10-10] MEDS: LEVALBUTEROL NEB 1.25 MG/3 ML INHALATION (02:30)
[2023-10-10] MEDS: WATER FOR IRRIGATION, STERILE 1,000 ML BOTTLE 1000 ML (03:05)
[2023-10-10 04:45] LABS: Basophils Percent Auto 0.1 % (0.2-1.2); Hematocrit 45.2 % (42.0-52.0); Immature Granulocyte Absolute 0.12 K/mm3 (0.00-0.031); Immature Granulocyte Percent A 0.7 % (0-0.5); Immature Platelet Fraction Pct 4.3 % (0.9-11.2); Lymphocytes Absolute Auto 0.19 K/mm3 (0.9-3.2); Lymphocytes Percent Auto 1.2 % (18.3-44.2); Mean Corpuscular Hemoglobin 29.8 pg (26-34); Mean Corpuscular Volume 96.2 fl (80-100); Mean Platelet Volume 10.3 fl (7.4-10.4); Monocytes Absolute Auto 0.6 K/mm3 (0.1-0.6); Monocytes Percent Auto 3.4 % (2.6-8.5); Neutrophils Absolute Auto 15.3 K/mm3 (1.3-6.7); Neutrophils Percent Auto 94.6 % (45.5-73.1); Nucleated Red Blood Cells Perc 0.2 % (0.0-0.2); Platelet Count Result 82 k/mm3 (150-375); Red Cell Distribution Width 19.3 % (11.5-14.5); White Blood Count 16.2 K/mm3 (4.5-10.0)
[2023-10-10 04:58] LABS: Lactic Acid Reflex 2.9 mmol/L (0.7-2.0)
[2023-10-10 05:09] LABS: Anion Gap 4 mmol/L (4-12); Blood Urea Nitrogen 37 mg/dL (9-20); Carbon Dioxide 27 mmol/L (22-30); Chloride 110 mmol/L (98-107); Estimated CRCL calculation 90 ml/min; Estimated Glomerular Filt Rate > 60; Glucose 130 mg/dL (65-110); Magnesium 2.2 mg/dL (1.6-2.3); Phosphorus 2.9 mg/dL (2.5-4.5); Potassium 2.8 mmol/L (3.4-5.0); Sodium 141 mmol/L (137-145)
[2023-10-10 05:17] LABS: Platelet Estimate Decreased (Adequate)
[2023-10-10 05:18] LABS: Crenated RBC 1+; Schistocytes None Seen; Spherocytes 1+
[2023-10-10] MEDS: methylPREDNISolone SOD SUCC 125 MG VIAL 60 MG IV PUSH (06:26)
[2023-10-10] MEDS: FUROSEMIDE INJ 40 MG/4 ML VIAL 20 MG IV PUSH (06:26)
[2023-10-10] MEDS: POTASSIUM CHLORIDE INJ 40 MEQ in SODIUM CHLORIDE 0.9% IV 500 ML 130 MEQ IVPB ×2 (06:33→11:37)
[2023-10-10 07:39] LABS: Reflex Lactic Acid Yes or No Add Lactic
--- NOTE | 2023-10-10 08:46 | PM.CNCAR ---
Assessment and Plan Assessment and plan (1) Paroxysmal atrial fibrillation with RVR: Code(s): I48.0 - Paroxysmal atrial fibrillation Status: Acute Plan This is a 63-year-old man who unfortunately appears to have terminal metastatic lung cancer and has developed atrial fibrillation as a consequence of his metastatic thoracic malignancy. There is likely very little we can do that would likely be effective to treat this man since the underlying malignancy cannot be improved. We will try to improve his heart rate medically however this is a situation where the best clinical recommendation is for palliative/hospice care. Since he can take oral medications I am going to transition him to oral amiodarone and add oral metoprolol to his regimen which may well help to improve his heart rate. We will follow him with you while he is in the hospital but preparation for end of life is the most reasonable course of action at this time Silvio Stephen MD [facility] History of Present Illness History of Present Illness Consult date/time: 10/10/23 08:46 Reason For Visit: Pneumonia, Acute respiratory failure Narrative: This is a 63-year-old gentleman I am seeing at the request of the hospitalist to assist with management of atrial fib with RVR. The patient is not known to me prior to this encounter he is an unfortunate man who has metastatic lung cancer that is being treated with palliative chemo and radiation therapy. 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 Came into the hospital yesterday with shortness of breath in the emergency room. He was being admitted for treatment of this and apparently in the emergency room went from sinus tachycardia into atrial fib with RVR. He was started on some amiodarone and according to the ER physician note his heart rate was reasonable at when he left the emergency room. I was called in the middle of the night that he was tachycardic with the hospitalist wishing to receive advice regarding further treatment of this. The patient is appropriately do not resuscitate status and in this setting we are being asked to see him in consultation. He did have an echocardiogram on his chart earlier this year that demonstrated hyperdynamic left ventricular systolic function and no significant valvular disease. His chest x-ray does not show any significant pleural effusions at this time. His chest and abdomen CT demonstrates the widely metastatic disease mentioned in the report. He is currently in IMU room 212 with nasal cannula oxygen in place and offers no other complaints. Telemetry demonstrates atrial fibrillation with heart rate of about 150-160. This is despite IV amiodarone running. The patient states that he can swallow and take oral medication Review of Systems Constitutional: Constitutional: Reports fatigue and Reports lethargy Eyes: Eyes: Reports no additional eye complaints ENT: Reports system reviewed and no additional complaints, except as documented Cardiovascular: Cardiovascular: Reports no additional cardiovascular complaints Respiratory: Respiratory: Reports dyspnea Gastrointestinal: Gastrointestinal: Reports no additional gastrointestinal complaints Musculoskeletal: Musculoskeletal: Reports no additional musculoskeletal complaints Integumentary/Breasts: Skin/Breast: Reports system reviewed and no additional complaints, except as docu Neurologic: Reports system reviewed and no additional complaints, except as documented Endocrine: Endocrine: Reports no additional endocrine complaints Hematologic/Lymphatic: Hematologic/Lymphatic: Reports no additional hematologic/lymphatic complaints Allergic/Immunologic: Allergic/Immunologic: Reports no additional allergic/immunologic complaints PMFSH Past Medical History Medical History (Updated 10/09/23 @ 21:34 by Jeff Michaud MD) Chronic obstr
[2023-10-10 08:55] LABS: Lactic Acid 3.4 mmol/L (0.7-2.0)
[2023-10-10] MEDS: SODIUM CHLORIDE 1 GM TABLET PO (09:17)
[2023-10-10] MEDS: AMIODARONE HCL 200 MG TABLET 400 MG PO ×2 (09:17→21:09)
[2023-10-10] MEDS: GABAPENTIN 300 MG CAPSULE PO ×2 (09:18→16:15)
[2023-10-10] MEDS: PANTOPRAZOLE 40 MG TABLET PO ×2 (09:18→21:09)
[2023-10-10] MEDS: METOPROLOL SUCCINATE EXT REL 100 MG TABCR PO (09:18)
[2023-10-10] MEDS: POTASSIUM CHLORIDE 10 MEQ ER TABLET PO ×2 (09:18→16:14)
[2023-10-10] MEDS: MORPHINE SULFATE (*CRX) 2 MG/ML INJ IV PUSH ×2 (09:24→16:15)
--- NOTE | 2023-10-10 09:54 | PDONCCN ---
HPI - Date of Consult Date/Time: 10/10/23 12:44 <Edmond Rodgers - 10/10/23 12:47> 10/10/23 09:54 <Cheyanne Ta - 10/10/23 09:55> Requesting Physician: Vinod Navarro MD <Edmond Rodgers - 10/10/23 12:47> Vinod Navarro MD <Cheyanne Ta - 10/10/23 09:55> Primary Care Provider: Edmond Rodgers MD <Edmond Rodgers - 10/10/23 12:47> Edmond Rodgers MD <Cheyanne Ta - 10/10/23 09:55> - Consult Narrative Reason for consult: Small Cell Lung Cancer <Cheyanne Ta - 10/10/23 09:55> Narrative: Edmar Harden is a 63 year old male <Edmond Rodgers - 10/10/23 12:47> Edmar Harden is a 63 year old male with a past medical history of small cell lung cancer diagnosed in Jun 2019 with T1N0 non small cell lung cancer status post robotic right upper lobe lobectomy with widespread thoracic and abdominal lymphadenopathy, multiple liver masses and foci of the skeleton. He has been receiving palliative chemotherapy which was completed on August 2023 and was to start maintenance Tecentriq. Most recently, he had a Pleurex drain placed for increasing left sided pleural effusions and increasing chest wall discomfort. He came to the hospital for increasing shortness of breath after having his pleural effusion drained. Upon admission, he went into Afib with RVR and has been on amiodarone gtt without relief. Cardiology on board and transitioning to PO amio and metoprolol and suggest hospice. Recent CT scan shows worsening metastatic disease. He reports his breathing is better after admission, but his pain has not been managed. Labs are notable for WBC 16.2, Hgb 14, Hct 45, Plt 82,000. <Cheyanne Ta - 10/10/23 11:38> Review of Systems - Review of Systems All systems reviewed & are unremarkable except as noted in HPI and bel <Cheyanne Ta - 10/10/23 10:10> - Neurologic Reports system reviewed and no additional complaints, except as documented <Oscar Tane - 10/10/23 09:55> [facility] Medical History: Medical History (Last Updated 10/09/23 @ 21:34 by Jeff Michaud MD) Chronic obstructive pulmonary disease Colon polyps Degenerative joint disease DNR (do not resuscitate) Gastroesophageal reflux disease Hyperlipidemia Non-small cell carcinoma of lung Arising in the right upper lobe status post lobectomy in June 2019. Pleural effusion on left May 2023; s/p thoracentesis at [facility]) Rhabdomyolysis Small cell lung cancer PET scan in 04/2023 showed evidence of distant metastases involving the abdominal lymph nodes, liver, and bones. Tobacco dependence <Edmond Rodgers - 10/10/23 12:47> Medical History (Last Updated 10/09/23 @ 21:34 by Jeff Michaud MD) Chronic obstructive pulmonary disease Colon polyps Degenerative joint disease DNR (do not resuscitate) Gastroesophageal reflux disease Hyperlipidemia Non-small cell carcinoma of lung Arising in the right upper lobe status post lobectomy in June 2019. Pleural effusion on left May 2023; s/p thoracentesis at [facility]) Rhabdomyolysis Small cell lung cancer PET scan in 04/2023 showed evidence of distant metastases involving the abdominal lymph nodes, liver, and bones. Tobacco dependence <HajadixonFernyCheyanne - 10/10/23 09:55> Surgical History: Surgical History (Last Reviewed 10/09/23 @ 21:30 by Jeff Michaud MD) History of back surgery History of colonoscopy with polypectomy History of hernia repair History of lobectomy of lung Onset Date: 06/2019 Right upper lobectomy per Dr. Lee ([facility]). History of surgery on arm History of thoracentesis May 2023; 2.5L drained by report ([facility]) <Edmond Rodgers - 10/10/23 12:47> Surgical History (Last Reviewed 10/09/23 @ 21:30 by Jeff Michaud MD) History of back surgery History of colonoscopy with polypectomy History of hernia repair History of lobectomy of lung Onset Date: 06/2019 Rig
[2023-10-10] MEDS: HYDROcodone/acetaminophen (*CRX) 5-325 MG TABLET 1 TAB PO ×2 (11:01→21:09)
[2023-10-10] MEDS: FUROSEMIDE INJ 40 MG/4 ML VIAL IV PUSH ×2 (12:34→16:15)
--- NOTE | 2023-10-10 13:35 | P.PNIM_ITS ---
Progress Note: A&P Assessment and Plan (1) Pneumonia: Code(s): J18.9 - Pneumonia, unspecified organism Status: Acute (2) Acute respiratory failure with hypoxemia: Code(s): J96.01 - Acute respiratory failure with hypoxia Status: Acute (3) Metastasis to bone: Code(s): C79.51 - Secondary malignant neoplasm of bone Status: Acute (4) Protein-calorie malnutrition, moderate: Code(s): E44.0 - Moderate protein-calorie malnutrition Status: Acute (5) Paroxysmal atrial fibrillation with RVR: Code(s): I48.0 - Paroxysmal atrial fibrillation Status: Acute (6) KAT (acute kidney injury): Code(s): N17.9 - Acute kidney failure, unspecified Status: Acute (7) Thrombocythemia: Code(s): D75.839 - Thrombocytosis, unspecified Status: Acute (8) Respiratory failure: Code(s): J96.90 - Respiratory failure, unspecified, unspecified whether with hypoxia or hypercapnia Status: Acute (9) Hypokalemia: Code(s): E87.6 - Hypokalemia Status: Acute (10) Transaminitis: Code(s): R74.01 - Elevation of levels of liver transaminase levels Status: Acute (11) Acute on chronic diastolic heart failure: Code(s): I50.33 - Acute on chronic diastolic (congestive) heart failure Status: Acute Plan Sepsis without septic shock secondary to pneumonia * WBC 16.7, Tachycardia, Tachypnea, respiratory failure with hypoxia, PNA noted of CXR * empiric IV antibiotic therapy azithromycin and Rocephin * Lactic acidosis continue to monitor q.6 * Repeat CBC, CMP. * Two sets of blood cultures pending * neuro status checks * Chest x-ray pneumonia. * CTs with worsening metastatic disease * Monitor albumin, monitoring of mental status. Acute respiratory failure with hypoxia Pneumonia * Post thoracentesis * Bronchodilators. * Chest x-ray: Small left pleural effusion with probable mild bibasilar pulmonary edema * incentive spirometry while awake. * sputum culture ordered * influenza/COVID/RSV negative * Broad-spectrum antibiotic therapy with azithromycin and Rocephin * Wean BiPAP as tolerated * supplemental oxygen therapy to maintain oxygen 92% currently on 8 L high-flow * Smoking cessation counseling done * CMP/CBC daily AFib with RVR * HR in the 150's * Amio gtt transitioned to PO * Cardiology consulted * added metoprolol for better rate control * Likely secondary to patient's metastatic disease * Continuous cardiac monitoring * Hypokalemia POA/continue to monitor potassium as well as magnesium replenished as needed * TSH Pending Acute on chronic diastolic heart failure * BNP elevated POA * cardiology consulted * IV Lasix b.i.d. * D/C fluids from sepsis * monitor renal function during diuresis * previous echocardiogram results diastolic heart failure LVEF of 60-65% 05/2023 * EKG: AFib RVR Metastatic disease (lung, liver, lymph nodes) * Reviewed CTA with worsening of metastatic disease lower lobe lung mass pulmonary nodules, ABD pelvic lymph nodes, adrenal lesions, in hepatic metastatic * Oncology consulted * Previous thoracentesis for comfort with Pleurex drain * Palliative chemotherapy 08/2023 * pain control * Had long discussion patient willing at this time to speak with palliative/hosp ice care for information Acute kidney injury-Resolved Transaminitis * Likely secondary to metastatic disease * Trend * Hypokalemia * 2.8 * Replenished * Monitor an
--- NOTE | 2023-10-10 13:35 | PM.IMPN ---
Progress Note: A&P Assessment and Plan (1) Pneumonia: Code(s): J18.9 - Pneumonia, unspecified organism Status: Acute (2) Acute respiratory failure with hypoxemia: Code(s): J96.01 - Acute respiratory failure with hypoxia Status: Acute (3) Metastasis to bone: Code(s): C79.51 - Secondary malignant neoplasm of bone Status: Acute (4) Protein-calorie malnutrition, moderate: Code(s): E44.0 - Moderate protein-calorie malnutrition Status: Acute (5) Paroxysmal atrial fibrillation with RVR: Code(s): I48.0 - Paroxysmal atrial fibrillation Status: Acute (6) KAT (acute kidney injury): Code(s): N17.9 - Acute kidney failure, unspecified Status: Acute (7) Thrombocythemia: Code(s): D75.839 - Thrombocytosis, unspecified Status: Acute (8) Respiratory failure: Code(s): J96.90 - Respiratory failure, unspecified, unspecified whether with hypoxia or hypercapnia Status: Acute (9) Hypokalemia: Code(s): E87.6 - Hypokalemia Status: Acute (10) Transaminitis: Code(s): R74.01 - Elevation of levels of liver transaminase levels Status: Acute (11) Acute on chronic diastolic heart failure: Code(s): I50.33 - Acute on chronic diastolic (congestive) heart failure Status: Acute Plan Sepsis without septic shock secondary to pneumonia WBC 16.7, Tachycardia, Tachypnea, respiratory failure with hypoxia, PNA noted of CXR empiric IV antibiotic therapy azithromycin and Rocephin Lactic acidosis continue to monitor q.6 Repeat CBC, CMP. Two sets of blood cultures pending neuro status checks Chest x-ray pneumonia. CTs with worsening metastatic disease Monitor albumin, monitoring of mental status. Acute respiratory failure with hypoxia Pneumonia Post thoracentesis Bronchodilators. Chest x-ray: Small left pleural effusion with probable mild bibasilar pulmonary edema incentive spirometry while awake. sputum culture ordered influenza/COVID/RSV negative Broad-spectrum antibiotic therapy with azithromycin and Rocephin Wean BiPAP as tolerated supplemental oxygen therapy to maintain oxygen 92% currently on 8 L high-flow Smoking cessation counseling done CMP/CBC daily AFib with RVR HR in the 150's Amio gtt transitioned to PO Cardiology consulted added metoprolol for better rate control Likely secondary to patient's metastatic disease Continuous cardiac monitoring Hypokalemia POA/continue to monitor potassium as well as magnesium replenished as needed TSH Pending Acute on chronic diastolic heart failure BNP elevated POA cardiology consulted IV Lasix b.i.d. D/C fluids from sepsis monitor renal function during diuresis previous echocardiogram results diastolic heart failure LVEF of 60-65% 05/2023 EKG: AFib RVR Metastatic disease (lung, liver, lymph nodes) Reviewed CTA with worsening of metastatic disease lower lobe lung mass pulmonary nodules, ABD pelvic lymph nodes, adrenal lesions, in hepatic metastatic Oncology consulted Previous thoracentesis for comfort with Pleurex drain Palliative chemotherapy 08/2023 pain control Had long discussion patient willing at this time to speak with palliative/hospice care for information Acute kidney injury-Resolved Transaminitis Likely secondary to metastatic disease Trend Hypokalemia 2.8 Replenished Monitor and replenish as needed Continues cardiac monitoring Magnesium 2.2 Moderate malnutrition secondary to poor protein and caloric intake Dietitian consult in Encourage high-protein meals Add supplemental protein shakes with each meal Thrombocytopenia Secondary to metastatic disease PLT 88 Monitor transfuse <20 Code status: DNR/DNI DVT prophylaxis: SCD's Stress ulcer prophylaxis: Protonix 40 daily PT/OT notes: Disposition: Patient continues admission to the Intensive a medical un
[2023-10-10 16:37] LABS: Lactic Acid Reflex 2.8 mmol/L (0.7-2.0)
[2023-10-10] MEDS: AZITHROMYCIN 500 MG/NS 250 ML 500 MG/250 ML BAG 250 MG IVPB (18:26)
[2023-10-11] VITALS (24 sets, daily range): BP systolic 104–135; BP diastolic 67–89; PULSE 53–97; RESP 14–24; TEMP 36.1–36.7; O2SAT 92–96
[2023-10-11] MEDS: HYDROcodone/acetaminophen (*CRX) 5-325 MG TABLET 1 TAB PO ×3 (03:34→16:34)
[2023-10-11 04:49] LABS: Hematocrit 44.6 % (42.0-52.0); Immature Platelet Fraction Pct 5.8 % (0.9-11.2); Mean Corpuscular HGB Conc 31.4 g/dl (32-36); Mean Corpuscular Hemoglobin 30.2 pg (26-34); Mean Corpuscular Volume 96.1 fl (80-100); Mean Platelet Volume 10.4 fl (7.4-10.4); Platelet Count Result 83 k/mm3 (150-375); Red Blood Count 4.64 M/mm3 (4.6-6.20); Red Cell Distribution Width 18.7 % (11.5-14.5)
[2023-10-11 05:02] LABS: Alanine Aminotransferase 247 U/L (6-50); Albumin Level 2.7 g/dL (3.5-5.1); Alkaline Phosphatase 279 U/L (38-126); Anion Gap 4 mmol/L (4-12); Aspartate Amino Transferase 191 U/L (17-59); Bilirubin,Total 2.6 mg/dL (0.2-1.3); Blood Urea Nitrogen 34 mg/dL (9-20); Calcium 6.6 mg/dL (8.4-10.2); Carbon Dioxide 26 mmol/L (22-30); Chloride 107 mmol/L (98-107); Estimated CRCL calculation 102 ml/min; Estimated Glomerular Filt Rate > 60; Glucose 141 mg/dL (65-110); Potassium 3.9 mmol/L (3.4-5.0); Sodium 137 mmol/L (137-145)
[2023-10-11 05:34] LABS: Thyroid Stimulating Hormone 0.966 uIU/mL (0.465-4.680)
[2023-10-11] MEDS: METOPROLOL SUCCINATE EXT REL 100 MG TABCR PO (09:23)
[2023-10-11] MEDS: GABAPENTIN 300 MG CAPSULE PO ×2 (09:23→16:35)
[2023-10-11] MEDS: PANTOPRAZOLE 40 MG TABLET PO ×2 (09:23→20:27)
[2023-10-11] MEDS: POTASSIUM CHLORIDE 10 MEQ ER TABLET PO ×2 (09:24→16:35)
[2023-10-11] MEDS: FUROSEMIDE INJ 40 MG/4 ML VIAL IV PUSH ×2 (09:26→16:33)
[2023-10-11] MEDS: AMIODARONE HCL 200 MG TABLET 400 MG PO ×2 (09:26→20:28)
[2023-10-11] MEDS: SODIUM CHLORIDE 1 GM TABLET PO (09:27)
--- NOTE | 2023-10-11 10:16 | PM.PNCARD ---
Progress Note: A&P Assessment and Plan (1) Paroxysmal atrial fibrillation with RVR: Code(s): I48.0 - Paroxysmal atrial fibrillation Status: Acute Assessment and Plan: Developed atrial fibrillation in the setting of metastatic thoracic malignancy. He is on oral amiodarone and metoprolol and has converted to sinus rhythm. Will not make any adjustments to his amiodarone dosing for now, but as he has converted to sinus rhythm we can decrease the dose of his metoprolol and perhaps eventually discontinue this. Subjective Date/time seen: 10/11/23 10:16 Interval history: Cardiology follow up for atrial fibrillation Date of service 10/11/2023: He feels about the same today. Remains in sinus rhythm. No chest pain, palpitations. He has baseline shortness of breath. Review of Systems Constitutional: Constitutional: Reports fatigue and Reports lethargy Eyes: Eyes: Reports no additional eye complaints ENT: Reports system reviewed and no additional complaints, except as documented Cardiovascular: Cardiovascular: Reports no additional cardiovascular complaints and Reports dyspnea Respiratory: Respiratory: Reports dyspnea Gastrointestinal: Gastrointestinal: Reports no additional gastrointestinal complaints Musculoskeletal: Musculoskeletal: Reports no additional musculoskeletal complaints Integumentary/Breasts: Skin/Breast: Reports system reviewed and no additional complaints, except as docu Neurologic: Reports system reviewed and no additional complaints, except as documented Endocrine: Endocrine: Reports no additional endocrine complaints and Reports fatigue Hematologic/Lymphatic: Hematologic/Lymphatic: Reports no additional hematologic/lymphatic complaints Allergic/Immunologic: Allergic/Immunologic: Reports no additional allergic/immunologic complaints Exam Const: General: comfortable, no acute distress, ill appearing chronically and tired appearing HENMT: Mouth: Yes moist mucous membranes Eyes: Sclera: sclerae normal Neck: Neck: supple and no JVD Resp: Other: Patient has coarse rhonchorous breath sounds throughout both lung coleman Cardio: Rate: regular rate Rhythm: regular rhythm GI: Auscultation: normal bowel sounds Skin: General skin exam: normal color Neuro: Other: Alert and oriented x3 Extrem: Other: Adequate perfusion, no edema Objective Data Vital Signs Vital Signs: Vital Signs - 24 hr 10/10/23 11:44 10/10/23 12:00 10/10/23 12:00 Temperature 36.1 C L Pulse Rate 88 79 Respiratory Rate 20 Blood Pressure 117/79 Pulse Oximetry 94 94 Oxygen Delivery High Flow Nasal Cannula Oxygen Flow Rate 8 10/10/23 14:00 10/10/23 16:09 10/10/23 16:00 Temperature Pulse Rate 82 77 Respiratory Rate 22 H Blood Pressure 110/77 Pulse Oximetry 95 95 Oxygen Delivery High Flow Nasal Cannula Oxygen Flow Rate 8 10/10/23 16:00 10/10/23 18:00 10/10/23 20:05 Temperature 36.5 C Pulse Rate 79 78 75 Respiratory Rate 22 H Blood Pressure 110/80 Pulse Oximetry 95 Oxygen Delivery Oxygen Flow Rate 10/10/23 20:36 10/10/23 21:09 10/10/23 20:00 Temperature Pulse Rate 74 69 Respiratory Rate Blood Pressure Pulse Oximetry 95 Oxygen Delivery Nasal Cannula Oxygen Flow Rate 2 10/10/23 22:00 10/10/23 23:31 10/11/23 00:00 Temperature 36.2 C L Pulse Rate 67 62 61 Respiratory Rate 20 Blood Pressure 105/75 Pulse Oximetry 96 Oxygen Delivery Oxygen Flow Rate 10/10/23 21:08 10/11/23 04:30 10/11/23 02:00 Temperature 36.1 C L Pulse Rate 64 61 Respiratory Rate 24 H Blood Pressure 113/73 Pulse Oximetry 95 95 Oxygen Delivery Oxygen Flow Rate 7 10/11/23 04:00 10/11/23 04:00 10/11/23 06:00 Temperature Pulse Rate 60 63 Respiratory Rate Blood Pressure Pulse Oximetry 96 Oxygen Delivery Nasal Cannula Oxygen Flow Rate 7 10/11/23 08:00 10/11/23 09:13
--- NOTE | 2023-10-11 11:34 | PM.CNPUL ---
Assessment and Plan Assessment and plan (1) Acute respiratory failure with hypoxemia: Code(s): J96.01 - Acute respiratory failure with hypoxia Status: Acute Assessment and Plan: Patient with worsening hypoxic respiratory failure. and worsening nodular infiltrates in his right lower lobe on CT scan on 10/09/2023 compared to 09/22/2023. ABG on 10/09/2023 with a pH of 7.5 10/27/2057 on room air. Currently the patient is on 7 L nasal cannula with saturations 95%. Etiology of worsening Hypoxemic respiratory failure includes: Metastatic lung cancer, fluid overload, pneumonia, doubt PE as CT angiogram of the chest negative on 10/09/2023. Plan: Agree with treatment with Lasix 40 IV b.i.d.. Agree with ceftriaxone and azithromycin. I will sella a COVID, influenza RSV RT PCR. I will send a respiratory pathogen panel. Agree with ceftriaxone and azithromycin, both started 10/09/2023, day 3. the patient tells me he does not wish to try CPAP or BiPAP in the hospital unless he absolutely needs it. The patient is DNR. Discussed with sister in room and with Dr. Gallegos. Will follow with you. (2) Small cell lung cancer: Code(s): C34.90 - Malignant neoplasm of unspecified part of unspecified bronchus or lung Status: Acute Assessment and Plan: Oncology is following and per their note of minimally progressive disease in his lungs, metastatic disease to his left pleural fluid status post PleurX catheter 1 month ago with drainage about 500 mL every other day, metastatic disease to his liver and bones with enlarged adrenal glands as well. Per their note he is interested in continuing second-line chemotherapy and if the patient can recover and present to their clinic this would be entertained. Oncology did discuss hospice-palliative care with the patient. (3) Chronic obstructive pulmonary disease: Code(s): J44.9 - Chronic obstructive pulmonary disease, unspecified Status: Acute Assessment and Plan: patient with 53 pack year tobacco use, quit in October of 2022. Carries a diagnosis of COPD. Not on any home oxygen, baseline activity level recently is 1/2 block. Patient presents with shortness of breath with no change in his cough, no change in his phlegm production and worsening hypoxemia. He has no wheezing on exam. I do not believe this is a COPD exacerbation. Plan: The patient takes p.r.n. albuterol at home. I will try ipratropium nebulizers 0.5 mg q.6 hours to see if this gives him a clinical benefit. I will initiate guaifenesin 1200 mg p.o. b.i.d. to aid in expectoration. (4) RAMY (obstructive sleep apnea): Code(s): G47.33 - Obstructive sleep apnea (adult) (pediatric) Status: Acute Assessment and Plan: patient tells me he has not been able to wear his CPAP 13 for the last 2 months because he can not breathe with the machine on. Plan: Patient tells me he does not wish to wear CPAP or BiPAP while he is in the hospital. Continue supplemental oxygen at night to maintain saturations greater than 90%. I will attempt to obtain download from [employer]. History of Present Illness History of Present Illness Consult date: 10/11/23 Chief complaint: Pneumonia, Acute respiratory failure Narrative: 10/11/2023: This is a new pulmonary consult for acute on chronic respiratory failure. Patient is followed in the Pulmonary Clinic in last seen on 07/25/2023: He was seen for obstructive sleep apnea on CPAP. History of right lung cancer status post right upper lobectomy 08/07/2018 Edmar is a pleasant 63yo M here for 7 month follow up regarding RAMY on CPAP. Hx GERD, hyperlipidemia. Hx right lung cancer s/p right upper lobectomy 08/07/18 at [place]. Hospitalized 05/2023 with pneumonia and pleural effusion, found to have left lung mass and evidence of metastatic disease on imaging just prior to this. Had multiple thoracenteses, transferred to [facility] for urgent Port placement
--- NOTE | 2023-10-11 12:38 | ECHO_ITS ---
Patient Info Name: Edmar Harden Age: 63 years : 1960 Gender: Male Ht: 72 in Wt: 192 lbs BSA: 2.11 m2 HR: 74 bpm BP: 110 / 79 mmHg Heart Rhythm: Sinus Rhythm Technical Quality: Poor Exam Date: 10/11/2023 1:13 PM Exam Location: Echo Lab Patient Status: Inpatient Admit Date: 10/09/2023 Staff Ordering Physician: Silvio Argueta MD Outreach Professional: Faby Lainez RDCS Attending Provider: Azeem Navarro MD Referring Physician: Kendall OSWALD; Exam Type: CA echo dop bubble study w con Study Info Indications - hypoxia, assess for PFO, metastatic cancer Complete two-dimentional, color flow and Doppler transthoracic echocardiogram is performed with agitated saline and with contrast to opacify the left ventricle and to improve the delineation of the left ventricle endocardial borders. Contrast/Agitated Saline Contrast/Ag. Saline: Definity Amount: 2.00 ml Administered By: Faby Lainez RDCS Existing IV Access: Yes IV Access Condition: patent with no signs of infiltration Contrast/Ag. Saline: Agitated Saline Amount: 20.00 ml Existing IV Access: Yes IV Access Condition: patent with no signs of infiltration Summary 1. Left ventricular chamber dimension is normal. 2. Left ventricular systolic function is normal, estimated at 65-70%. 3. There is mildly increased left ventricular wall thickness. 4. The left ventricular diastolic function is grade I diastolic dysfunction. 5. Right ventricular systolic function is normal. 6. Intact interatrial septum visualized by color flow and agitated saline imaging. Negative bubble study. 7. No significant valvular disease. 8. The aortic root size at the sinus of Valsalva is mildly dilated. 9. Normal inferior vena cava with >50% collapse upon inspiration consistent with normal right atrial pressure, 3 mmHg. Left Ventricle Left ventricular chamber dimension is normal. Left ventricular systolic function is normal, estimated at 65-70%. There is mildly increased left ventricular wall thickness. The left ventricular diastolic function is grade I diastolic dysfunction. Right Ventricle Right ventricular chamber dimension is normal. Right ventricular systolic function is normal. Left Atria Left atrial chamber dimension is normal. Right Atria Right atrial chamber dimension is normal. Atrial Septum Intact interatrial septum visualized by color flow and agitated saline imaging. Negative bubble study. Aortic Valve The aortic valve is probable trileaflet. There is no aortic valve stenosis. There is no aortic valve regurgitation. There is mild aortic valve calcification. Pulmonic Valve The pulmonic valve is not well visualized. There is no pulmonic regurgitation. Mitral Valve There is trace mitral valve regurgitation. The mitral valve annulus is moderately calcified. Tricuspid Valve There is trace tricuspid valve regurgitation. Pericardium/Pleural There is no pericardial effusion. Inferior Vena Cava Normal inferior vena cava with >50% collapse upon inspiration consistent with normal right atrial pressure, 3 mmHg. Aorta The aortic root size at the sinus of Valsalva is mildly dilated. Left Ventricular Outflow Tract Name Value Normal LVOT 2D LVOT Diamete
[2023-10-11] MEDS: guaiFENesin 12 HR 600 MG TABCR 1200 MG PO ×2 (13:33→20:27)
[2023-10-11 13:52] LABS: Influenza A QL RT-PCR Negative (Negative); Influenza B QL RT-PCR Negative (Negative); RSV RNA, RT-PCR Negative (Negative); SARS-CoV-2 RNA PCR Negative (Negative)
[2023-10-11] MEDS: IPRATROPIUM BR 0.02% INH SOLN 0.5 MG/2.5 ML VIAL INHALATION ×2 (14:00→20:36)
--- NOTE | 2023-10-11 14:01 | P.PNIM_ITS ---
Progress Note: A&P Assessment and Plan (1) Pneumonia: Code(s): J18.9 - Pneumonia, unspecified organism Status: Acute (2) Acute respiratory failure with hypoxemia: Code(s): J96.01 - Acute respiratory failure with hypoxia Status: Acute (3) Metastasis to bone: Code(s): C79.51 - Secondary malignant neoplasm of bone Status: Acute (4) Protein-calorie malnutrition, moderate: Code(s): E44.0 - Moderate protein-calorie malnutrition Status: Acute (5) Paroxysmal atrial fibrillation with RVR: Code(s): I48.0 - Paroxysmal atrial fibrillation Status: Acute (6) KAT (acute kidney injury): Code(s): N17.9 - Acute kidney failure, unspecified Status: Acute (7) Thrombocythemia: Code(s): D75.839 - Thrombocytosis, unspecified Status: Acute (8) Respiratory failure: Code(s): J96.90 - Respiratory failure, unspecified, unspecified whether with hypoxia or hypercapnia Status: Acute (9) Hypokalemia: Code(s): E87.6 - Hypokalemia Status: Acute (10) Transaminitis: Code(s): R74.01 - Elevation of levels of liver transaminase levels Status: Acute (11) Acute on chronic diastolic heart failure: Code(s): I50.33 - Acute on chronic diastolic (congestive) heart failure Status: Acute Plan 63 years old white male with metastatic lung cancer infiltrating his pulmonary artery with recurrent pleural effusions. He came to the ER for evaluation with worsening shortness of breath after having his pleural effusion drained. CT scan of the chest done which confirmed extensive metastatic liver disease as well as right lower lobe pneumonia. pateint was started on BiPAP and IV antibiotics initiated. Patient also had KAT . Patient went into AFib with RVR with heart rate as high as 188. At that time he had worsening tachypnea, diaphoresis and respiratory distress. Cardiology was consulted. Sepsis without septic shock secondary to pneumonia * Worsening leukocytosis, * Continue with empiric IV antibiotic therapy azithromycin and Rocephin * CTs with worsening metastatic disease * We will obtain Pulmonary consult * Appreciate oncology help Acute respiratory failure with hypoxia Pneumonia * Status post thoracentesis * Bronchodilators. * incentive spirometry while awake. * sputum culture ordered * influenza/COVID/RSV negative * Continue with antibiotic, azithromycin and ceftriaxone as mentioned above * Currently on O2 support with 8 L AFib with RVR * Appreciate cardiology help, currently in sinus rhythm Continue with amiodarone, metoprolol Acute on chronic diastolic heart failure * BNP elevated POA * cardiology appreciated * IV Lasix b.i.d Metastatic disease (lung, liver, lymph nodes) * Reviewed CTA with worsening of metastatic disease lower lobe lung mass pulmonary nodules, ABD pelvic lymph nodes, adrenal lesions, in hepatic metastatic * Oncology consult appreciated * Previous thoracentesis for comfort with Pleurex drain * Palliative chemotherapy 08/2023 * pain control * Patient does not want to transition to hospice care interval Acute kidney injury-Resolved Transaminitis * Likely secondary to metastatic disease * Trend * Hypo natremia * Improved * Moderate malnutrition secondary to poor protein and caloric intake * Dietitian consult in * Encourage high-protein meals * Continue with supplemental protein shakes with each meal Thrombocytopenia * Secondary to metastatic disease * PLT 83
--- NOTE | 2023-10-11 14:01 | PM.IMPN ---
Progress Note: A&P Assessment and Plan (1) Pneumonia: Code(s): J18.9 - Pneumonia, unspecified organism Status: Acute (2) Acute respiratory failure with hypoxemia: Code(s): J96.01 - Acute respiratory failure with hypoxia Status: Acute (3) Metastasis to bone: Code(s): C79.51 - Secondary malignant neoplasm of bone Status: Acute (4) Protein-calorie malnutrition, moderate: Code(s): E44.0 - Moderate protein-calorie malnutrition Status: Acute (5) Paroxysmal atrial fibrillation with RVR: Code(s): I48.0 - Paroxysmal atrial fibrillation Status: Acute (6) KAT (acute kidney injury): Code(s): N17.9 - Acute kidney failure, unspecified Status: Acute (7) Thrombocythemia: Code(s): D75.839 - Thrombocytosis, unspecified Status: Acute (8) Respiratory failure: Code(s): J96.90 - Respiratory failure, unspecified, unspecified whether with hypoxia or hypercapnia Status: Acute (9) Hypokalemia: Code(s): E87.6 - Hypokalemia Status: Acute (10) Transaminitis: Code(s): R74.01 - Elevation of levels of liver transaminase levels Status: Acute (11) Acute on chronic diastolic heart failure: Code(s): I50.33 - Acute on chronic diastolic (congestive) heart failure Status: Acute Plan 63 years old white male with metastatic lung cancer infiltrating his pulmonary artery with recurrent pleural effusions. He came to the ER for evaluation with worsening shortness of breath after having his pleural effusion drained. CT scan of the chest done which confirmed extensive metastatic liver disease as well as right lower lobe pneumonia. pateint was started on BiPAP and IV antibiotics initiated. Patient also had KAT . Patient went into AFib with RVR with heart rate as high as 188. At that time he had worsening tachypnea, diaphoresis and respiratory distress. Cardiology was consulted. Sepsis without septic shock secondary to pneumonia Worsening leukocytosis, Continue with empiric IV antibiotic therapy azithromycin and Rocephin CTs with worsening metastatic disease We will obtain Pulmonary consult Appreciate oncology help Acute respiratory failure with hypoxia Pneumonia Status post thoracentesis Bronchodilators. incentive spirometry while awake. sputum culture ordered influenza/COVID/RSV negative Continue with antibiotic, azithromycin and ceftriaxone as mentioned above Currently on O2 support with 8 L AFib with RVR Appreciate cardiology help, currently in sinus rhythm Continue with amiodarone, metoprolol Acute on chronic diastolic heart failure BNP elevated POA cardiology appreciated IV Lasix b.i.d Metastatic disease (lung, liver, lymph nodes) Reviewed CTA with worsening of metastatic disease lower lobe lung mass pulmonary nodules, ABD pelvic lymph nodes, adrenal lesions, in hepatic metastatic Oncology consult appreciated Previous thoracentesis for comfort with Pleurex drain Palliative chemotherapy 08/2023 pain control Patient does not want to transition to hospice care interval Acute kidney injury-Resolved Transaminitis Likely secondary to metastatic disease Trend Hypo natremia Improved Moderate malnutrition secondary to poor protein and caloric intake Dietitian consult in Encourage high-protein meals Continue with supplemental protein shakes with each meal Thrombocytopenia Secondary to metastatic disease PLT 83 Monitor transfuse <20 Code status: DNR/DNI DVT prophylaxis: SCD's Disposition: Pending improvement, very poor long-term prognosis, patient not ready for hospice transition yet Time Spent With Patient Time with patient: 25 - 35 minutes Subjective Date/time seen: 10/11/23 14:01 Interval history: Continues to be very short of breath, currently on 7 L of O2 support Review of Systems Review of Systems: All systems reviewed & are unremarkab
[2023-10-11] MEDS: MORPHINE SULFATE (*CRX) 2 MG/ML INJ IV PUSH ×2 (14:11→20:28)
[2023-10-11] MEDS: PERFLUTREN LIPID MICROSPHERES 1.5 ML VIAL DILUTED TO 10 ML TOTAL VOLUME IV PUSH (14:15)
--- NOTE | 2023-10-11 14:16 | IVDEFINITY ---
Prior to administration of IV Definity the patient was educated on the risks and benefits of the imaging enhancing agent including potential adverse side effects. The patient verbalized understanding. Allergies were verified. No exclusion criteria were identified and at least one of the following inclusion criteria were met: 1) physician request, 2) patient technically difficult to image (per the [place] [employer] guidelines of two or more segments not discernable within the apical view), or 3) questionable left ventricular function. ?
[2023-10-11] MEDS: AZITHROMYCIN 500 MG/NS 250 ML 500 MG/250 ML BAG 250 MG IVPB (17:37)
[2023-10-12] VITALS (28 sets, daily range): BP systolic 91–121; BP diastolic 54–81; PULSE 63–95; RESP 14–24; TEMP 36–37.3; O2SAT 87–95
[2023-10-12] MEDS: HYDROcodone/acetaminophen (*CRX) 5-325 MG TABLET 1 TAB PO ×4 (00:03→22:52)
[2023-10-12] MEDS: IPRATROPIUM BR 0.02% INH SOLN 0.5 MG/2.5 ML VIAL INHALATION ×4 (01:50→20:16)
[2023-10-12 04:46] LABS: Hematocrit 43.3 % (42.0-52.0); Hemoglobin 13.6 g/dL (14.0-18.0); Immature Platelet Fraction Pct 6.3 % (0.9-11.2); Mean Corpuscular HGB Conc 31.4 g/dl (32-36); Mean Corpuscular Hemoglobin 29.8 pg (26-34); Mean Platelet Volume 10.7 fl (7.4-10.4); Platelet Count Result 63 k/mm3 (150-375); Red Blood Count 4.56 M/mm3 (4.6-6.20); Red Cell Distribution Width 18.3 % (11.5-14.5); White Blood Count 13.6 K/mm3 (4.5-10.0)
[2023-10-12 05:03] LABS: Alanine Aminotransferase 229 U/L (6-50); Albumin Level 2.7 g/dL (3.5-5.1); Alkaline Phosphatase 304 U/L (38-126); Anion Gap 3 mmol/L (4-12); Aspartate Amino Transferase 162 U/L (17-59); Bilirubin,Total 2.9 mg/dL (0.2-1.3); Blood Urea Nitrogen 36 mg/dL (9-20); Calcium 6.6 mg/dL (8.4-10.2); Carbon Dioxide 30 mmol/L (22-30); Chloride 103 mmol/L (98-107); Estimated CRCL calculation 102 ml/min; Estimated Glomerular Filt Rate > 60; Glucose 146 mg/dL (65-110); Potassium 3.6 mmol/L (3.4-5.0); Sodium 136 mmol/L (137-145)
--- NOTE | 2023-10-12 08:15 | PM.PNPUL ---
Progress Note: A&P Assessment and Plan (1) Acute respiratory failure with hypoxemia: Code(s): J96.01 - Acute respiratory failure with hypoxia Status: Acute Assessment and Plan: Patient with worsening hypoxic respiratory failure. and worsening nodular infiltrates in his right lower lobe on CT scan on 10/09/2023 compared to 09/22/2023. ABG on 10/09/2023 with a pH of 7.5 10/27/2057 on room air. Currently the patient is on 7 L nasal cannula with saturations 95%. Etiology of worsening Hypoxemic respiratory failure includes: Metastatic lung cancer, fluid overload, pneumonia, immune related pneumonitis (Tecentriq), doubt PE as CT angiogram of the chest negative on 10/09/2023. Plan: Agree with treatment with Lasix 40 IV b.i.d.. Agree with ceftriaxone and azithromycin. I will sella a COVID, influenza RSV RT PCR. I will send a respiratory pathogen panel. Agree with ceftriaxone and azithromycin, both started 10/09/2023, day 3. the patient tells me he does not wish to try CPAP or BiPAP in the hospital unless he absolutely needs it. The patient is DNR. Later in the day Patient had an echocardiogram with a bubble study with LVEF 65-70, grade 1 diastolic dysfunction, normal RV size and function, normal right atrial size, no RVSP measured, negative bubble study. 10/11 Patient tells me that he is improved. He states he is 50% back to his normal. He denies cough, phlegm or hemoptysis. Currently is on 6 L nasal cannula saturations 92%. Afebrile. White blood cell count 13.6, creatinine 0.7. discussed with Oncology and he received 4 cycles of Carboplatinum and Tecentriq with last cycle on 08/05/2023. Patient is +700 mL yesterday. Weight today is 90 kg. Cumulative he is 4.1 L positive since admission. COVID influenza and RSV RT PCR studies negative. Plan: patient states he is improved on day 4 ceftriaxone and azithromycin, afebrile, mildly improved oxygen requirements now at 6 L. Will continue treatment today. I will check a chest x-ray today. Patient is on Lasix 40 IV b.i.d. but is net fluid positive and needs more aggressive diuresis. Discussed with sister in room and with Dr. Gallegos. Will follow with you. (2) Small cell lung cancer: Code(s): C34.90 - Malignant neoplasm of unspecified part of unspecified bronchus or lung Status: Acute Assessment and Plan: Oncology is following and per their note of minimally progressive disease in his lungs, metastatic disease to his left pleural fluid status post PleurX catheter 1 month ago with drainage about 500 mL every other day, metastatic disease to his liver and bones with enlarged adrenal glands as well. Per their note he is interested in continuing second-line chemotherapy and if the patient can recover and present to their clinic this would be entertained. Oncology did discuss hospice-palliative care with the patient. 10/12/23: discussed with Oncology and he received 4 cycles of Carboplatinum and Tecentriq with last cycle on 08/05/2023. Plan: CT scan does not show diffuse ground-glass infiltrates consistent with immune related pneumonitis. At this time will not start steroids. (3) Chronic obstructive pulmonary disease: Code(s): J44.9 - Chronic obstructive pulmonary disease, unspecified Status: Acute Assessment and Plan: patient with 53 pack year tobacco use, quit in October of 2022. Carries a diagnosis of COPD. Not on any home oxygen, baseline activity level recently is 1/2 block. Patient presents with shortness of breath with no change in his cough, no change in his phlegm production and worsening hypoxemia. He has no wheezing on exam. I do not believe this is a COPD exacerbation. 10/11/23: Plan: The patient takes p.r.n. albuterol at home. I will try ipratropium nebulizers 0.5 mg q.6 hours to see if this gives him a clinical benefit. I will initiate guaifenesin 1200 mg p.o. b.i.d. to aid in expectoration. 6
[2023-10-12] MEDS: AMIODARONE HCL 200 MG TABLET 400 MG PO ×2 (08:59→20:00)
[2023-10-12] MEDS: GABAPENTIN 300 MG CAPSULE PO ×2 (09:00→17:03)
[2023-10-12] MEDS: guaiFENesin 12 HR 600 MG TABCR 1200 MG PO ×2 (09:00→19:59)
[2023-10-12] MEDS: POTASSIUM CHLORIDE 10 MEQ ER TABLET PO ×2 (09:00→17:03)
[2023-10-12] MEDS: SODIUM CHLORIDE 1 GM TABLET PO (09:00)
[2023-10-12] MEDS: PANTOPRAZOLE 40 MG TABLET PO ×2 (09:00→19:59)
[2023-10-12] MEDS: METOPROLOL SUCCINATE EXT REL 50 MG TABCR PO (09:00)
[2023-10-12] MEDS: FUROSEMIDE INJ 40 MG/4 ML VIAL IV PUSH ×3 (09:00→17:03)
[2023-10-12 09:05] LABS: NT Pro B Type Natriuretic Pept 474 pg/mL (19.9-100)
--- NOTE | 2023-10-12 13:13 | P.PNIM_ITS ---
Progress Note: A&P Assessment and Plan (1) Pneumonia: Code(s): J18.9 - Pneumonia, unspecified organism Status: Acute (2) Acute respiratory failure with hypoxemia: Code(s): J96.01 - Acute respiratory failure with hypoxia Status: Acute (3) Metastasis to bone: Code(s): C79.51 - Secondary malignant neoplasm of bone Status: Acute (4) Protein-calorie malnutrition, moderate: Code(s): E44.0 - Moderate protein-calorie malnutrition Status: Acute (5) Paroxysmal atrial fibrillation with RVR: Code(s): I48.0 - Paroxysmal atrial fibrillation Status: Acute (6) KAT (acute kidney injury): Code(s): N17.9 - Acute kidney failure, unspecified Status: Acute (7) Thrombocythemia: Code(s): D75.839 - Thrombocytosis, unspecified Status: Acute (8) Respiratory failure: Code(s): J96.90 - Respiratory failure, unspecified, unspecified whether with hypoxia or hypercapnia Status: Acute (9) Hypokalemia: Code(s): E87.6 - Hypokalemia Status: Acute (10) Transaminitis: Code(s): R74.01 - Elevation of levels of liver transaminase levels Status: Acute (11) Acute on chronic diastolic heart failure: Code(s): I50.33 - Acute on chronic diastolic (congestive) heart failure Status: Acute Plan 63 years old white male with metastatic lung cancer infiltrating his pulmonary artery with recurrent pleural effusions. He came to the ER for evaluation with worsening shortness of breath after having his pleural effusion drained. CT scan of the chest done which confirmed extensive metastatic liver disease as well as right lower lobe pneumonia. pateint was started on BiPAP and IV antibiotics initiated. Patient also had KAT . Patient went into AFib with RVR with heart rate as high as 188. At that time he had worsening tachypnea, diaphoresis and respiratory distress. Cardiology was consulted. Sepsis without septic shock secondary to pneumonia * Leukocytosis better today, * Continue with empiric IV antibiotic therapy azithromycin and Rocephin * CTs with worsening metastatic disease * Appreciate from * Appreciate oncology help Acute respiratory failure with hypoxia Pneumonia * Status post thoracentesis * Bronchodilators. * incentive spirometry while awake. * sputum culture ordered * influenza/COVID/RSV negative * Continue with antibiotic, azithromycin and ceftriaxone as mentioned above * Currently on O2 support, currently on 5 L * Discussed with patient, his daughter will bring the manual and all the instructions related to PleurX catheter drainage * Will start the PleurX catheter drainage every 2 days as per protocol AFib with RVR * Appreciate cardiology help, currently in sinus rhythm Continue with amiodarone, metoprolol Acute on chronic diastolic heart failure * BNP elevated POA * cardiology appreciated * Will increase IV Lasix to t.i.d. Metastatic disease (lung, liver, lymph nodes) * Reviewed CTA with worsening of metastatic disease lower lobe lung mass pulmonary nodules, ABD pelvic lymph nodes, adrenal lesions, in hepatic metastatic * Oncology consult appreciated * Previous thoracentesis for comfort with Pleurex drain * Palliative chemotherapy 08/2023 * pain control * Patient does not want to transition to hospice care interval Acute kidney injury-Resolved Transaminitis * Likely secondary to metastatic disease * Trend * Hypo natremia * Improved * Moderate malnutrition secondary to poor protein and ca
--- NOTE | 2023-10-12 13:13 | PM.IMPN ---
Progress Note: A&P Assessment and Plan (1) Pneumonia: Code(s): J18.9 - Pneumonia, unspecified organism Status: Acute (2) Acute respiratory failure with hypoxemia: Code(s): J96.01 - Acute respiratory failure with hypoxia Status: Acute (3) Metastasis to bone: Code(s): C79.51 - Secondary malignant neoplasm of bone Status: Acute (4) Protein-calorie malnutrition, moderate: Code(s): E44.0 - Moderate protein-calorie malnutrition Status: Acute (5) Paroxysmal atrial fibrillation with RVR: Code(s): I48.0 - Paroxysmal atrial fibrillation Status: Acute (6) KAT (acute kidney injury): Code(s): N17.9 - Acute kidney failure, unspecified Status: Acute (7) Thrombocythemia: Code(s): D75.839 - Thrombocytosis, unspecified Status: Acute (8) Respiratory failure: Code(s): J96.90 - Respiratory failure, unspecified, unspecified whether with hypoxia or hypercapnia Status: Acute (9) Hypokalemia: Code(s): E87.6 - Hypokalemia Status: Acute (10) Transaminitis: Code(s): R74.01 - Elevation of levels of liver transaminase levels Status: Acute (11) Acute on chronic diastolic heart failure: Code(s): I50.33 - Acute on chronic diastolic (congestive) heart failure Status: Acute Plan 63 years old white male with metastatic lung cancer infiltrating his pulmonary artery with recurrent pleural effusions. He came to the ER for evaluation with worsening shortness of breath after having his pleural effusion drained. CT scan of the chest done which confirmed extensive metastatic liver disease as well as right lower lobe pneumonia. pateint was started on BiPAP and IV antibiotics initiated. Patient also had KAT . Patient went into AFib with RVR with heart rate as high as 188. At that time he had worsening tachypnea, diaphoresis and respiratory distress. Cardiology was consulted. Sepsis without septic shock secondary to pneumonia Leukocytosis better today, Continue with empiric IV antibiotic therapy azithromycin and Rocephin CTs with worsening metastatic disease Appreciate from Appreciate oncology help Acute respiratory failure with hypoxia Pneumonia Status post thoracentesis Bronchodilators. incentive spirometry while awake. sputum culture ordered influenza/COVID/RSV negative Continue with antibiotic, azithromycin and ceftriaxone as mentioned above Currently on O2 support, currently on 5 L Discussed with patient, his daughter will bring the manual and all the instructions related to PleurX catheter drainage Will start the PleurX catheter drainage every 2 days as per protocol AFib with RVR Appreciate cardiology help, currently in sinus rhythm Continue with amiodarone, metoprolol Acute on chronic diastolic heart failure BNP elevated POA cardiology appreciated Will increase IV Lasix to t.i.d. Metastatic disease (lung, liver, lymph nodes) Reviewed CTA with worsening of metastatic disease lower lobe lung mass pulmonary nodules, ABD pelvic lymph nodes, adrenal lesions, in hepatic metastatic Oncology consult appreciated Previous thoracentesis for comfort with Pleurex drain Palliative chemotherapy 08/2023 pain control Patient does not want to transition to hospice care interval Acute kidney injury-Resolved Transaminitis Likely secondary to metastatic disease Trend Hypo natremia Improved Moderate malnutrition secondary to poor protein and caloric intake Dietitian consult in Encourage high-protein meals Continue with supplemental protein shakes with each meal Thrombocytopenia Secondary to metastatic disease PLT 83 Monitor transfuse <20 Code status: DNR/DNI DVT prophylaxis: SCD's Disposition: Pending improvement, very poor long-term prognosis, patient not ready for hospice transition yet Time Spent With Patient Time with patient: 25 - 35 minutes Subjective
[2023-10-12] MEDS: AZITHROMYCIN 500 MG/NS 250 ML 500 MG/250 ML BAG 250 MG IVPB (17:03)
[2023-10-13] VITALS (38 sets, daily range): BP systolic 88–142; BP diastolic 59–80; PULSE 75–92; RESP 12–24; TEMP 35.8–36.8; O2SAT 84–96
[2023-10-13] MEDS: IPRATROPIUM BR 0.02% INH SOLN 0.5 MG/2.5 ML VIAL INHALATION ×5 (01:37→20:26)
[2023-10-13 04:56] LABS: Hematocrit 44.9 % (42.0-52.0); Hemoglobin 14.3 g/dL (14.0-18.0); Immature Platelet Fraction Pct 7.4 % (0.9-11.2); Mean Corpuscular HGB Conc 31.8 g/dl (32-36); Mean Corpuscular Hemoglobin 29.7 pg (26-34); Mean Corpuscular Volume 93.2 fl (80-100); Mean Platelet Volume 10.3 fl (7.4-10.4); Platelet Count Result 67 k/mm3 (150-375); Red Blood Count 4.82 M/mm3 (4.6-6.20); Red Cell Distribution Width 19.5 % (11.5-14.5); White Blood Count 12.3 K/mm3 (4.5-10.0)
[2023-10-13 05:07] LABS: Alanine Aminotransferase 420 U/L (6-50); Albumin Level 2.8 g/dL (3.5-5.1); Alkaline Phosphatase 311 U/L (38-126); Anion Gap 10 mmol/L (4-12); Aspartate Amino Transferase 546 U/L (17-59); Bilirubin,Total 4.6 mg/dL (0.2-1.3); Blood Urea Nitrogen 50 mg/dL (9-20); Calcium 6.3 mg/dL (8.4-10.2); Carbon Dioxide 26 mmol/L (22-30); Chloride 101 mmol/L (98-107); Estimated CRCL calculation 57 ml/min; Estimated Glomerular Filt Rate 56; Glucose 121 mg/dL (65-110); Magnesium 1.9 mg/dL (1.6-2.3); Potassium 3.8 mmol/L (3.4-5.0); Sodium 137 mmol/L (137-145)
[2023-10-13] MEDS: FUROSEMIDE INJ 40 MG/4 ML VIAL IV PUSH ×2 (07:56→22:41)
[2023-10-13] MEDS: HYDROcodone/acetaminophen (*CRX) 5-325 MG TABLET 1 TAB PO ×2 (07:56→16:11)
[2023-10-13] MEDS: guaiFENesin 12 HR 600 MG TABCR 1200 MG PO (07:57)
[2023-10-13] MEDS: POTASSIUM CHLORIDE 10 MEQ ER TABLET PO ×2 (07:57→16:10)
[2023-10-13] MEDS: PANTOPRAZOLE 40 MG TABLET PO ×2 (07:57→21:16)
[2023-10-13] MEDS: AMIODARONE HCL 200 MG TABLET 400 MG PO ×2 (07:57→21:15)
[2023-10-13] MEDS: SODIUM CHLORIDE 1 GM TABLET PO (07:57)
[2023-10-13] MEDS: GABAPENTIN 300 MG CAPSULE PO ×2 (07:58→16:10)
[2023-10-13] MEDS: METOPROLOL SUCCINATE EXT REL 50 MG TABCR PO (07:58)
--- NOTE | 2023-10-13 08:43 | PM.PNPUL ---
Progress Note: A&P Assessment and Plan (1) Acute respiratory failure with hypoxemia: Code(s): J96.01 - Acute respiratory failure with hypoxia Status: Acute Assessment and Plan: Patient with worsening hypoxic respiratory failure. and worsening nodular infiltrates in his right lower lobe on CT scan on 10/09/2023 compared to 09/22/2023. ABG on 10/09/2023 with a pH of 7.5 10/27/2057 on room air. Currently the patient is on 7 L nasal cannula with saturations 95%. Etiology of worsening Hypoxemic respiratory failure includes: Metastatic lung cancer, fluid overload, pneumonia, immune related pneumonitis (Tecentriq), doubt PE as CT angiogram of the chest negative on 10/09/2023. Plan: Agree with treatment with Lasix 40 IV b.i.d.. Agree with ceftriaxone and azithromycin. I will sella a COVID, influenza RSV RT PCR. I will send a respiratory pathogen panel. Agree with ceftriaxone and azithromycin, both started 10/09/2023, day 3. the patient tells me he does not wish to try CPAP or BiPAP in the hospital unless he absolutely needs it. The patient is DNR. Later in the day Patient had an echocardiogram with a bubble study with LVEF 65-70, grade 1 diastolic dysfunction, normal RV size and function, normal right atrial size, no RVSP measured, negative bubble study. 10/11 Patient tells me that he is improved. He states he is 50% back to his normal. He denies cough, phlegm or hemoptysis. Currently is on 6 L nasal cannula saturations 92%. Afebrile. White blood cell count 13.6, creatinine 0.7. discussed with Oncology and he received 4 cycles of Carboplatinum and Tecentriq with last cycle on 08/05/2023. Patient is +700 mL yesterday. Weight today is 90 kg. Cumulative he is 4.1 L positive since admission. COVID influenza and RSV RT PCR studies negative. Plan: patient states he is improved on day 4 ceftriaxone and azithromycin, afebrile, mildly improved oxygen requirements now at 6 L. Will continue treatment today. I will check a chest x-ray today. Patient is on Lasix 40 IV b.i.d. but is net fluid positive and needs more aggressive diuresis. Discussed with sister in room and with Dr. Gallegos. Will follow with you. 10/12 Patient tells me he is feeling about the same although he looks as if he is more tachypneic this morning. Oxygenation worsened overnight and currently on 11 L nasal cannula with saturations 93%. The patient has rhonchorous breath sounds and cannot clear secretions from his airway. Patient is afebrile. White blood cell count 12.3, creatinine 1.30, BNP improved to 474. Patient tells me the guaifenesin is making him worse. Plan: Patient has widely metastatic cancer and now with debility, inability to clear secretions, and hypoxemic respiratory failure. I suspect this is all related to progressive metastatic lung cancer. Attempting to treat any concurrent respiratory issues such as infection, fluid overload, malignant pleural effusion. Despite this treatment, patient continues to decline. Patient is on day 5 ceftriaxone and azithromycin (last dose at 17:00 today). Will continue ceftriaxone for a total of 7 days. Patient has been given aggressive diuresis with Lasix 40 IV t.i.d., BNP has improved to 474, creatinine has increased to 1.30 will discuss with hospitalist backing off on diuretics. I will repeat a chest x-ray today and if additional pleural fluid is present will attempt another PleurX catheter drainage. Discussed with Dr. Gallegos, will follow with you. (2) Small cell lung cancer: Code(s): C34.90 - Malignant neoplasm of unspecified part of unspecified bronchus or lung Status: Acute Assessment and Plan: Oncology is following and per their note of minimally progressive disease in his lungs, metastatic disease to his left pleural fluid status post PleurX catheter 1 month ago with drainage about 500 mL every other day, metastatic disease to his liver and bones with e
--- NOTE | 2023-10-13 11:30 | PCPTNOTE ---
Attempted to see patient for PT. Per RN patient is not feeling as well and requiring increase O2 needs but can try to see patient if patient is up for therapy. Checked with patient and patient declined therapy at this time due not feeling well.
[2023-10-13] MEDS: LEVALBUTEROL NEB 1.25 MG/3 ML INHALATION ×3 (12:15→20:26)
--- NOTE | 2023-10-13 13:18 | P.PNIM_ITS ---
Progress Note: A&P Assessment and Plan (1) Pneumonia: Code(s): J18.9 - Pneumonia, unspecified organism Status: Acute (2) Acute respiratory failure with hypoxemia: Code(s): J96.01 - Acute respiratory failure with hypoxia Status: Acute (3) Metastasis to bone: Code(s): C79.51 - Secondary malignant neoplasm of bone Status: Acute (4) Protein-calorie malnutrition, moderate: Code(s): E44.0 - Moderate protein-calorie malnutrition Status: Acute (5) Paroxysmal atrial fibrillation with RVR: Code(s): I48.0 - Paroxysmal atrial fibrillation Status: Acute (6) KAT (acute kidney injury): Code(s): N17.9 - Acute kidney failure, unspecified Status: Acute (7) Thrombocythemia: Code(s): D75.839 - Thrombocytosis, unspecified Status: Acute (8) Respiratory failure: Code(s): J96.90 - Respiratory failure, unspecified, unspecified whether with hypoxia or hypercapnia Status: Acute (9) Hypokalemia: Code(s): E87.6 - Hypokalemia Status: Acute (10) Transaminitis: Code(s): R74.01 - Elevation of levels of liver transaminase levels Status: Acute (11) Acute on chronic diastolic heart failure: Code(s): I50.33 - Acute on chronic diastolic (congestive) heart failure Status: Acute Plan 63 years old white male with metastatic lung cancer infiltrating his pulmonary artery with recurrent pleural effusions. He came to the ER for evaluation with worsening shortness of breath after having his pleural effusion drained. CT scan of the chest done which confirmed extensive metastatic liver disease as well as right lower lobe pneumonia. pateint was started on BiPAP and IV antibiotics initiated. Patient also had KAT . Patient went into AFib with RVR with heart rate as high as 188. At that time he had worsening tachypnea, diaphoresis and respiratory distress. Cardiology was consulted. Sepsis without septic shock secondary to pneumonia * Leukocytosis better today, * Continue with empiric IV antibiotic therapy azithromycin and Rocephin, last da y of azithromycin, completing 5 days * CTs with worsening metastatic disease * Appreciate oncology help Acute respiratory failure with hypoxia Pneumonia * Status post thoracentesis * Bronchodilators. * incentive spirometry while awake. * sputum culture ordered * influenza/COVID/RSV negative * Continue with antibiotic, azithromycin and ceftriaxone as mentioned above * Currently on O2 support, currently on 12 L * Five hundred fluid was drained from his PleurX catheter yesterday * Worsening respiratory status, repeat chest x-ray will see if we can further drain from PleurX catheter * Will decrease Lasix to daily since he has not responded much to 3 times daily Lasix and there is a bump in creatinine noted * Tried discussing/bringing up hospice/palliative care again but he does not seem to be interested in that AFib with RVR * Appreciate cardiology help, currently in sinus rhythm Continue with amiodarone, metoprolol Acute on chronic diastolic heart failure * BNP elevated POA * cardiology appreciated * Continue with Lasix daily as mentioned Metastatic disease (lung, liver, lymph nodes) * Reviewed CTA with worsening of metastatic disease lower lobe lung mass pulmonary nodules, ABD pelvic lymph nodes, adrenal lesions, in hepatic metastatic * Oncology consult appreciated * Previous thoracentesis for comfort with Pleurex drain * Palliative chemotherapy 08/2023 * pain control * Patient does not want to tr
--- NOTE | 2023-10-13 13:18 | PM.IMPN ---
Progress Note: A&P Assessment and Plan (1) Pneumonia: Code(s): J18.9 - Pneumonia, unspecified organism Status: Acute (2) Acute respiratory failure with hypoxemia: Code(s): J96.01 - Acute respiratory failure with hypoxia Status: Acute (3) Metastasis to bone: Code(s): C79.51 - Secondary malignant neoplasm of bone Status: Acute (4) Protein-calorie malnutrition, moderate: Code(s): E44.0 - Moderate protein-calorie malnutrition Status: Acute (5) Paroxysmal atrial fibrillation with RVR: Code(s): I48.0 - Paroxysmal atrial fibrillation Status: Acute (6) KAT (acute kidney injury): Code(s): N17.9 - Acute kidney failure, unspecified Status: Acute (7) Thrombocythemia: Code(s): D75.839 - Thrombocytosis, unspecified Status: Acute (8) Respiratory failure: Code(s): J96.90 - Respiratory failure, unspecified, unspecified whether with hypoxia or hypercapnia Status: Acute (9) Hypokalemia: Code(s): E87.6 - Hypokalemia Status: Acute (10) Transaminitis: Code(s): R74.01 - Elevation of levels of liver transaminase levels Status: Acute (11) Acute on chronic diastolic heart failure: Code(s): I50.33 - Acute on chronic diastolic (congestive) heart failure Status: Acute Plan 63 years old white male with metastatic lung cancer infiltrating his pulmonary artery with recurrent pleural effusions. He came to the ER for evaluation with worsening shortness of breath after having his pleural effusion drained. CT scan of the chest done which confirmed extensive metastatic liver disease as well as right lower lobe pneumonia. pateint was started on BiPAP and IV antibiotics initiated. Patient also had KAT . Patient went into AFib with RVR with heart rate as high as 188. At that time he had worsening tachypnea, diaphoresis and respiratory distress. Cardiology was consulted. Sepsis without septic shock secondary to pneumonia Leukocytosis better today, Continue with empiric IV antibiotic therapy azithromycin and Rocephin, last day of azithromycin, completing 5 days CTs with worsening metastatic disease Appreciate oncology help Acute respiratory failure with hypoxia Pneumonia Status post thoracentesis Bronchodilators. incentive spirometry while awake. sputum culture ordered influenza/COVID/RSV negative Continue with antibiotic, azithromycin and ceftriaxone as mentioned above Currently on O2 support, currently on 12 L Five hundred fluid was drained from his PleurX catheter yesterday Worsening respiratory status, repeat chest x-ray will see if we can further drain from PleurX catheter Will decrease Lasix to daily since he has not responded much to 3 times daily Lasix and there is a bump in creatinine noted Tried discussing/bringing up hospice/palliative care again but he does not seem to be interested in that AFib with RVR Appreciate cardiology help, currently in sinus rhythm Continue with amiodarone, metoprolol Acute on chronic diastolic heart failure BNP elevated POA cardiology appreciated Continue with Lasix daily as mentioned Metastatic disease (lung, liver, lymph nodes) Reviewed CTA with worsening of metastatic disease lower lobe lung mass pulmonary nodules, ABD pelvic lymph nodes, adrenal lesions, in hepatic metastatic Oncology consult appreciated Previous thoracentesis for comfort with Pleurex drain Palliative chemotherapy 08/2023 pain control Patient does not want to transition to hospice care interval Acute kidney injury-bump in creatinine noted again, will decrease Lasix to once daily Transaminitis Likely secondary to metastatic disease Trend Hypo natremia Improved Moderate malnutrition secondary to poor protein and caloric intake Dietitian consult in Encourage high-protein meals Continue with supplemental protein shakes with each meal Thrombocytopenia Seconda
[2023-10-13] MEDS: cefTRIAXone 2 GM/NS 100 ML 2 GM/100 ML BAG IVPB (14:22)
[2023-10-13] MEDS: AZITHROMYCIN 500 MG/NS 250 ML 500 MG/250 ML BAG 250 MG IVPB (16:10)
[2023-10-13] MEDS: MORPHINE SULFATE (*CRX) 2 MG/ML INJ IV PUSH (16:11)
[2023-10-13 16:57] LABS: pH Pleural Fluid > 7.500 (7.210-7.500)
[2023-10-13 17:12] LABS: Appearance Pleural Fluid Hazy (Clear); Color Pleural Fluid Yellow (Colorless); Pleural fluid source Pleural fluid
[2023-10-13 17:13] LABS: Lymphocytes Pleural Fluid 48 %; Macrophages Pleural Fluid 7 %; Neutrophils Pleural Fluid 45 % (0-25)
[2023-10-13] MEDS: ONDANSETRON INJ 4 MG/2 ML VIAL IV PUSH (22:39)
[2023-10-13] MEDS: MORPHINE SULFATE (*CRX) 4 MG/ML INJ IV PUSH (22:39)
--- NOTE | 2023-10-13 23:08 | PC.NURSE ---
Staff at bedside. Pt's case discussed with Dr. Amin. Pt O2 sat 85-88% on 15L HFNC. New order for bipap, which respiratory applied. RN's to administer Morphine and Lasix per Dr. Amin's order. Nurses to bedside to administer medications. Pt does not want to wear bipap at this time. 15L HFNC applied. O2 sat dropped to 70%. Discussed with pt the need to wear bipap. Pt agreeable at this time. Bipap reapplied. Pt reaching for things that are not there. Pt is unable to stay awake even prior to morphine administration. Call placed to pt's niece, Kelsea, asking her to return call to IMU for pt update.
[2023-10-14] VITALS (14 sets, daily range): BP systolic 75–77; BP diastolic 49–55; PULSE 71–93; RESP 18–39; TEMP 36.6; O2SAT 83–98
--- NOTE | 2023-10-14 00:17 | PC.NURSE ---
Attempted to call Kelsea, BERT-no answer. Staff spoke to pt's daughter, Emma. Staff explained that pt has had a decline in mental state and increased oxygen requirements. Pt placed on bipap but has been attempting to remove bipap. Pt O2 sat 60% RA when pt removed bipap. Explained to Emma that if pt removes bipap, he would likely not live through the night. Emma said okay. States that she does not have any questions at this time. Emma was told that staff has been attempting to reach Kelsea but has been unable to.
[2023-10-14] MEDS: LEVALBUTEROL NEB 1.25 MG/3 ML INHALATION ×3 (01:21→08:44)
[2023-10-14] MEDS: IPRATROPIUM BR 0.02% INH SOLN 0.5 MG/2.5 ML VIAL INHALATION ×3 (01:21→08:45)
--- NOTE | 2023-10-14 04:27 | PC.NURSE ---
Pt declining. Agonal breathing. Attempted to notify family. Messages left for all contacts. May (sister) answered her phone. States she will get in touch with the POA. May verbalized understanding the seriousness of the situation.
[2023-10-14 04:28] LABS: Hematocrit 45.7 % (42.0-52.0); Hemoglobin 14.1 g/dL (14.0-18.0); Immature Platelet Fraction Pct 8.7 % (0.9-11.2); Mean Corpuscular HGB Conc 30.9 g/dl (32-36); Mean Corpuscular Hemoglobin 29.9 pg (26-34); Mean Corpuscular Volume 96.8 fl (80-100); Mean Platelet Volume 11.2 fl (7.4-10.4); Platelet Count Result 63 k/mm3 (150-375); Red Blood Count 4.72 M/mm3 (4.6-6.20); Red Cell Distribution Width 19.8 % (11.5-14.5); White Blood Count 8.8 K/mm3 (4.5-10.0)
--- NOTE | 2023-10-14 04:40 | PC.NURSE ---
Spoke with BERT Enamorado. Updated to pt's condition. Kelsea verbalized understanding of current situation.
[2023-10-14 04:50] LABS: Alanine Aminotransferase 584 U/L (6-50); Albumin Level 2.7 g/dL (3.5-5.1); Alkaline Phosphatase 260 U/L (38-126); Anion Gap 10 mmol/L (4-12); Aspartate Amino Transferase 689 U/L (17-59); Bilirubin,Total 5.2 mg/dL (0.2-1.3); Blood Urea Nitrogen 71 mg/dL (9-20); Calcium 5.9 mg/dL (8.4-10.2); Carbon Dioxide 23 mmol/L (22-30); Chloride 101 mmol/L (98-107); Estimated CRCL calculation 32 ml/min; Estimated Glomerular Filt Rate 27; Glucose 125 mg/dL (65-110); Potassium 5.1 mmol/L (3.4-5.0); Sodium 134 mmol/L (137-145)
--- NOTE | 2023-10-14 05:00 | PC.NURSE ---
Reported critical calcium to Dr. Amin, as well as current BP of 75/49. Family has been called in due to changes in pt's condition. No new orders at this time.
--- NOTE | 2023-10-14 05:47 | PC.NURSE ---
Emma and Kelsea at pt's bedside. Kelsea updated to current labs and VS, as well and behaviors and work of breathing over night. Comfort care discussed at length. During conversation, pt wanted bipap removed. Pt and family verbalize understanding that 15L HFNC is likely not enough oxygen for him. Per BERT Enamorado, do what he wants.
--- NOTE | 2023-10-14 08:58 | P.PNIM_ITS ---
Progress Note: A&P Assessment and Plan (1) Pneumonia: Code(s): J18.9 - Pneumonia, unspecified organism Status: Acute (2) Acute respiratory failure with hypoxemia: Code(s): J96.01 - Acute respiratory failure with hypoxia Status: Acute (3) Metastasis to bone: Code(s): C79.51 - Secondary malignant neoplasm of bone Status: Acute (4) Protein-calorie malnutrition, moderate: Code(s): E44.0 - Moderate protein-calorie malnutrition Status: Acute (5) Paroxysmal atrial fibrillation with RVR: Code(s): I48.0 - Paroxysmal atrial fibrillation Status: Acute (6) KAT (acute kidney injury): Code(s): N17.9 - Acute kidney failure, unspecified Status: Acute (7) Thrombocythemia: Code(s): D75.839 - Thrombocytosis, unspecified Status: Acute (8) Respiratory failure: Code(s): J96.90 - Respiratory failure, unspecified, unspecified whether with hypoxia or hypercapnia Status: Acute (9) Hypokalemia: Code(s): E87.6 - Hypokalemia Status: Acute (10) Transaminitis: Code(s): R74.01 - Elevation of levels of liver transaminase levels Status: Acute (11) Acute on chronic diastolic heart failure: Code(s): I50.33 - Acute on chronic diastolic (congestive) heart failure Status: Acute Plan 63 years old white male with metastatic lung cancer infiltrating his pulmonary artery with recurrent pleural effusions. He came to the ER for evaluation with worsening shortness of breath after having his pleural effusion drained. CT scan of the chest done which confirmed extensive metastatic liver disease as well as right lower lobe pneumonia. pateint was started on BiPAP and IV antibiotics initiated. Patient also had KAT . Patient went into AFib with RVR with heart rate as high as 188. At that time he had worsening tachypnea, diaphoresis and respiratory distress. Cardiology was consulted. Sepsis without septic shock secondary to pneumonia * Continue with empiric IV antibiotic therapy azithromycin and Rocephin, last day of azithromycin, completing 5 days * CTs with worsening metastatic disease * Appreciate oncology help Acute respiratory failure with hypoxia Pneumonia * Status post thoracentesis * Bronchodilators. * incentive spirometry while awake. * sputum culture with normal olga * influenza/COVID/RSV negative * Continue with antibiotic, azithromycin and ceftriaxone as mentioned above * Currently on O2 support, currently on 12 L * On PleurX catheter * Also has aspiration episode leading to Worsening respiratory status needing BiPAP support * Ongoing decline discussed hospice with the family. Open to discuss hospice AFib with RVR * Appreciate cardiology help, currently in sinus rhythm Continue with amiodarone, metoprolol Acute on chronic diastolic heart failure * BNP elevated POA * cardiology appreciated * With hypotension Lasix on hold Metastatic disease (lung, liver, lymph nodes) * Reviewed CTA with worsening of metastatic disease lower lobe lung mass pulmonary nodules, ABD pelvic lymph nodes, adrenal lesions, in hepatic metastatic * Oncology consult appreciated * Previous thoracentesis for comfort with Pleurex drain * Palliative chemotherapy 08/2023 * pain control Acute kidney injury continues to incline up to 2.4 today. Hypotensive overnight will hold diuresis cautious IV resuscitation Transaminitis * Likely secondary to metastatic disease * Trend * Hypo natremia * Improved * Moderate malnutrit
--- NOTE | 2023-10-14 08:58 | PM.IMPN ---
Progress Note: A&P Assessment and Plan (1) Pneumonia: Code(s): J18.9 - Pneumonia, unspecified organism Status: Acute (2) Acute respiratory failure with hypoxemia: Code(s): J96.01 - Acute respiratory failure with hypoxia Status: Acute (3) Metastasis to bone: Code(s): C79.51 - Secondary malignant neoplasm of bone Status: Acute (4) Protein-calorie malnutrition, moderate: Code(s): E44.0 - Moderate protein-calorie malnutrition Status: Acute (5) Paroxysmal atrial fibrillation with RVR: Code(s): I48.0 - Paroxysmal atrial fibrillation Status: Acute (6) KAT (acute kidney injury): Code(s): N17.9 - Acute kidney failure, unspecified Status: Acute (7) Thrombocythemia: Code(s): D75.839 - Thrombocytosis, unspecified Status: Acute (8) Respiratory failure: Code(s): J96.90 - Respiratory failure, unspecified, unspecified whether with hypoxia or hypercapnia Status: Acute (9) Hypokalemia: Code(s): E87.6 - Hypokalemia Status: Acute (10) Transaminitis: Code(s): R74.01 - Elevation of levels of liver transaminase levels Status: Acute (11) Acute on chronic diastolic heart failure: Code(s): I50.33 - Acute on chronic diastolic (congestive) heart failure Status: Acute Plan 63 years old white male with metastatic lung cancer infiltrating his pulmonary artery with recurrent pleural effusions. He came to the ER for evaluation with worsening shortness of breath after having his pleural effusion drained. CT scan of the chest done which confirmed extensive metastatic liver disease as well as right lower lobe pneumonia. pateint was started on BiPAP and IV antibiotics initiated. Patient also had KAT . Patient went into AFib with RVR with heart rate as high as 188. At that time he had worsening tachypnea, diaphoresis and respiratory distress. Cardiology was consulted. Sepsis without septic shock secondary to pneumonia Continue with empiric IV antibiotic therapy azithromycin and Rocephin, last day of azithromycin, completing 5 days CTs with worsening metastatic disease Appreciate oncology help Acute respiratory failure with hypoxia Pneumonia Status post thoracentesis Bronchodilators. incentive spirometry while awake. sputum culture with normal olga influenza/COVID/RSV negative Continue with antibiotic, azithromycin and ceftriaxone as mentioned above Currently on O2 support, currently on 12 L On PleurX catheter Also has aspiration episode leading to Worsening respiratory status needing BiPAP support Ongoing decline discussed hospice with the family. Open to discuss hospice AFib with RVR Appreciate cardiology help, currently in sinus rhythm Continue with amiodarone, metoprolol Acute on chronic diastolic heart failure BNP elevated POA cardiology appreciated With hypotension Lasix on hold Metastatic disease (lung, liver, lymph nodes) Reviewed CTA with worsening of metastatic disease lower lobe lung mass pulmonary nodules, ABD pelvic lymph nodes, adrenal lesions, in hepatic metastatic Oncology consult appreciated Previous thoracentesis for comfort with Pleurex drain Palliative chemotherapy 08/2023 pain control Acute kidney injury continues to incline up to 2.4 today. Hypotensive overnight will hold diuresis cautious IV resuscitation Transaminitis Likely secondary to metastatic disease Trend Hypo natremia Improved Moderate malnutrition secondary to poor protein and caloric intake Dietitian consult in Encourage high-protein meals Continue with supplemental protein shakes with each meal Thrombocytopenia Secondary to metastatic disease PLT 67 Monitor transfuse <20 Code status: DNR/DNI DVT prophylaxis: SCD's Disposition: Worsening clinically, discussed long-term care increased risk of short-term morbidity and mortality. Discussed hospice care with the famil
[2023-10-14] MEDS: LIDOCAINE/PRILOCAINE CREAM 2.5-2.5% TUBE 1 EACH TOPICAL (09:11)
[2023-10-14] MEDS: MORPHINE SULFATE (*CRX) 4 MG/ML INJ IV PUSH (09:53)
[2023-10-14 12:58] LABS: Adenovirus DNA Not Detected (Not Detected); Chlamydophila pneumoniae Not Detected (Not Detected); Coronavirus 229E Not Detected (Not Detected); Coronavirus HKU1 Not Detected (Not Detected); Coronavirus NL63 Not Detected (Not Detected); Coronavirus OC43 Not Detected (Not Detected); Human Metapneumovirus Not Detected (Not Detected); Human Parainfluenza Virus 1 Not Detected (Not Detected); Human Parainfluenza Virus 2 Not Detected (Not Detected); Human Parainfluenza Virus 3 Not Detected (Not Detected); Human Parainfluenza Virus 4 Not Detected (Not Detected); Human RSV B Not Detected (Not Detected); Influenza A Not Detected (Not Detected); Influenza B Not Detected (Not Detected); Mycoplasma pneumoniae Not Detected (Not Detected); Rhinovirus/Enterovirus Not Detected (Not Detected)
--- NOTE | 2023-10-14 16:14 | P.DN_ITS ---
Discharge Summary Date and Time Date of : 10/14/23 Time of : 11:47 Provider Pronounced By: 2 RNs Name of First RN That Pronounced: Marie Craven RN Name of Second RN That Pronounced: Steve Doe RN Probable Cause of Probable Cause of : Sepsis/pneumonia/respiratory failure Metastatic lung cancer Summary Hospital Course: This is a 63-year-old male with metastatic lung cancer infiltrating his pulmonary artery with recurrent pleural effusion on PleurX catheter presented with worsening shortness of breath. CT scan of the chest confirmed extensive metastatic liver disease as well as right lower lobe pneumonia. Patient was hypoxic and requiring BiPAP. IV antibiotics were initiated. Patient also had KAT and AFib with RVR. Cardiology and Pulmonary both for consulted during the hospital stay. Patient continued to decline despite adequate medical treatment following which conversation with family was done and was initiated on comfort measures. And shortly after initiation of comfort measures. Necessary arrangements were made. Additional Data Confirmation of as documented by pronouncing clinician: Pupillary Reflex, Palpable Pulses, Response to Stimuli, Heart Tones and Breath Sounds Name of Provider Notified: kiko Time Provider Notified: 11:50 Provider Requests Autopsy: No Family Requests Autopsy: No Senior Systems Administrator Notified: Yes Date [facility] Notified of : 10/14/23 Time [facility] Notified of : 11:55
[2023-10-16 05:15] LABS: Troponin I 0.097 ng/mL (0.000-0.034)
[2023-10-18 20:53] LABS: Glucose Pleural Fluid 89 mg/dL
== END 2023-10-14 11:47 | disposition expired | DRG 871 ==
LOC: ANHED 17:33 → ANHIMU 19:01
PROVIDERS: Family Medicine; Internal Medicine Pulmonary Disease; Nurse Practitioner Family; Admitting Provider Internal Medicine; Emergency Provider Emergency Medicine; PCP Internal Medicine Hematology & Oncology; Visit Provider Internal Medicine
DX: A41.9 Sepsis, unspecified organism (principal); J18.9 Pneumonia, unspecified organism; J96.01 Acute respiratory failure with hypoxia; C34.11 Malignant neoplasm of upper lobe, right bronchus or lung; C77.2 Secondary and unspecified malignant neoplasm of intra-abdominal lymph nodes; C78.7 Secondary malignant neoplasm of liver and intrahepatic bile duct; C79.51 Secondary malignant neoplasm of bone; N17.9 Acute kidney failure, unspecified; E44.0 Moderate protein-calorie malnutrition; I50.32 Chronic diastolic (congestive) heart failure; E87.1 Hypo-osmolality and hyponatremia; J44.0 Chronic obstructive pulmonary disease with (acute) lower respiratory infection; I48.0 Paroxysmal atrial fibrillation; E87.6 Hypokalemia; E78.5 Hyperlipidemia, unspecified; K21.9 Gastro-esophageal reflux disease without esophagitis; M19.90 Unspecified osteoarthritis, unspecified site; Z20.822 Contact with and (suspected) exposure to COVID-19; Z86.010 Personal history of colon polyps; Z87.891 Personal history of nicotine dependence; D69.6 Thrombocytopenia, unspecified
CPT/HCPCS: 36415; 36600; 71045; 71275; 74177; 76705; 80048; 80053; 82805; 82945; 83605; 83735; 83880; 83986; 84100; 84443; 84484; 85025; 85027; 85055; 85610; 85730; 87015; 87040; 87070; 87075; 87077; 87102; 87116; 87186; 87205; 87206; 87633; 87637; 89051; 93005; 94002; 94003; 94640; 94667; 96375; 97110; 97161; 97530; 99285; A9270; C8929; G0378; J0282; J0456; J0696; J1160; J1940; J2060; J2270; J2405; J2919; J3480; J7030; J7040; J7050; Q9957; Q9967